=== PATIENT | female | born 1965 | race Caucasian/White ===

== ENCOUNTER 2016-10-11 16:51 | Inpatient (IN) | payer MEDICARE, BC ==
[~2016-10-11] VITALS: Ht 167.6 cm; Wt 72.1 kg
[2016-10-11] VITALS (11 sets, daily range): BP systolic 88–92; BP diastolic 51–67; PULSE 87–165; RESP 16–24; TEMP 97.9–98; O2SAT 93–99
[~2016-10-11 16:51] MED LIST: ASPI81TA82 PO; BENA25TA8 PO; FLON0.053; FURO1TAB93 PO; HAIRTAB PO; LEVO88TA2 PO; MIDO10TA4 PO; POLY119S PO; PROG1CAP PO; RENATAB5 PO; SEVEL800 PO; VITA100T55 PO; VITA20002 PO; ZOLP10TA3 PO
[2016-10-11] MEDS ORDERED: DILTIAZEM HCL 25 MG/5 ML VIAL IV PUSH ONE (17:45)
[2016-10-11] MEDS ORDERED: SODIUM CHLORIDE 0.9% FLUSH 10 ML FLUSH IVF PRN ×2 (17:45)
[2016-10-11] MEDS ORDERED: HAIRTAB PO (17:51)
[2016-10-11] MEDS ORDERED: MIDO10TA PO (17:51)
[2016-10-11] MEDS ORDERED: SEVEL800 PO (17:51)
[2016-10-11] MEDS ORDERED: CLON1TAB PO (17:51)
[2016-10-11] MEDS ORDERED: TACRPOW PO ×2 (17:51)
[2016-10-11] MEDS ORDERED: B CO PO (17:51)
[2016-10-11] MEDS ORDERED: FOSA70TA PO (17:51)
[2016-10-11] MEDS ORDERED: PYRI1TAB14 PO (17:51)
[2016-10-11] MEDS ORDERED: LEVO88TA2 PO (17:51)
[2016-10-11] MEDS ORDERED: BENA25TA3 PO (17:51)
[2016-10-11] MEDS ORDERED: PANT40TA3 PO (17:51)
--- NOTE | 2016-10-11 18:12 | RADRPT ---
EXAM DATE/TIME: 10/11/2016 18:03 [place] COMPARISON: No previous studies available for comparison. INDICATIONS : Chest pain. MEDICAL HISTORY : None. SURGICAL HISTORY : None. Liver transplant. Stent placement. ENCOUNTER: Initial ACUITY: 1 day PAIN SCORE: 5/10 LOCATION: Bilateral chest FINDINGS: A single view of the chest demonstrates right lower lobe infiltrate. Heart enlarged. Left lung clear. Vascular stent noted. Osseous structures are intact. CONCLUSION: Right lower lobe infiltrate. Umer Coughlin MD on October 11, 2016 at 18:09 Board Certified Radiologist. This report was verified electronically.
[2016-10-11] MEDS: DILTIAZEM INJ 125 MG in SODIUM CHLORIDE 0.9% INJ 100 ML IV SCH ×2 (18:19→21:23)
[2016-10-11 18:35] LABS: AUTOMATED NEUTROPHIL # 5.8 TH/MM3 (1.8-7.7); BASOPHIL # 0.1 TH/MM3 (0-0.2); EOSINOPHIL # 0.2 TH/MM3 (0-0.4); EOSINOPHIL % 2.3 % (0.0-4.0); HEMO FLAGS DIFF FINAL; LYMPH % 12.6 % (9.0-44.0); MEAN CELL VOLUME 98.7 FL (80.0-100.0); MEAN CORPUSCULAR HEMOGLOBIN 32.1 PG (27.0-34.0); MEAN CORPUSCULAR HGB CONC 32.5 % (32.0-36.0); MONO % 9.9 % (0.0-8.0); NEUT % 74.2 % (16.0-70.0); PLATELET COUNT 231 TH/MM3 (150-450); RED BLOOD COUNT 3.55 MIL/MM3 (4.00-5.30); RED CELL DISTRIBUTION WIDTH 15.1 % (11.6-17.2); WHITE BLOOD COUNT 7.9 TH/MM3 (4.0-11.0)
[2016-10-11] MEDS ORDERED: NALOXONE HCL 0.4 MG/ML AMP IV PRN (18:45)
[2016-10-11] MEDS ORDERED: SODIUM CHLORIDE 0.9% FLUSH 10 ML FLUSH IV FLUSH PRN ×2 (18:45→21:00)
[2016-10-11] MEDS ORDERED: ONDANSETRON HCL 4 MG/2 ML VIAL IVP PRN (18:45)
[2016-10-11] MEDS ORDERED: MAGNESIUM HYDROXIDE SUSP 30 ML CUP PO PRN (18:45)
[2016-10-11 18:48] LABS: ANION GAP 13 MEQ/L (5-15); BICARBONATE 28.4 MEQ/L (21.0-32.0); BLOOD UREA NITROGEN 31 MG/DL (7-18); CHLORIDE 90 MEQ/L (98-107); GLOMERULAR FILTRATION RATE 9 ML/MIN (>89); MAGNESIUM 1.9 MG/DL (1.5-2.5); POTASSIUM 3.8 MEQ/L (3.5-5.1); SODIUM (NA) 131 MEQ/L (136-145)
[2016-10-11 18:54] LABS: APTT (PATIENT) 25.6 SEC (24.3-30.1); PROTHROMBIN TIME - PATIENT 10.5 SEC (9.8-11.6)
[2016-10-11 18:58] LABS: CREATINE KINASE 156 U/L (26-192)
[2016-10-11 19:10] LABS: CKMB 7.7 NG/ML (0.5-3.6)
[2016-10-11] MEDS ORDERED: DILTIAZEM HCL 50 MG/10 ML VIAL IV PUSH ONE (19:30)
--- NOTE | 2016-10-11 19:34 | PD ---
HPI Chief Complaint: Chest Pain Time Seen by Provider: 17:09 Travel History International Travel<30 days: No Contact w/Intl Traveler<30days: No Traveled to known affect area: No History of Present Illness HPI This is a 51-year-old female with a history of renal failure, liver transplant, who [facility] for evaluation for shortness of breath and abnormal cardiac rhythm. The patient states that she felt her heart palpitating from her chest into her throat. She denies any chest pain, chest pressure. She does report shortness of breath. She's also had a dry cough that she says is nonproductive. There are no other complaints time of my examination. PFSH Past Medical History Anxiety: Yes Cancer: No Cardiovascular Problems: No High Cholesterol: Yes Cirrhosis: Yes Diabetes: Yes (hx of diabetes ok now) Patient Takes Glucophage: No Endocrine: Yes Gastrointestinal Disorders: Yes (hx of polyps, hemorroids) Genitourinary: Yes (kidney failure) Hepatitis: No Hiatal Hernia: No Hypertension: Yes Immune Disorder: No (LIVER TRANSPLANT) Medical other: Yes (no needle sticks or b/p in the left arm) Musculoskeletal: Yes (hx of torn disc in the lower back which is ok now) Neurologic: Yes (head injury as a child sinus problems now) Psychiatric: No Reproductive: Yes (UTERINE POLYP) Respiratory: No Immunizations Current: Yes Renal Failure: Yes (ON DIALYSIS) Sleep Apnea: Yes (cpap at home) Thyroid Disease: Yes (HYPOTHYROID) ?: Not Past Surgical History Abdominal Surgery: Yes (liver transplant 2008 ruptured spleen repair, SPLEENECTOMY) AICD: No Body Medical Devices: left fistula stents placed in the left side of the chest for circulation Cardiac Surgery: No Cholecystectomy: Yes Ear Surgery: No Endocrine Surgery: No Eye Surgery: No Genitourinary Surgery: No Gynecologic Surgery: Yes (POLYP REMOVED) Joint Replacement: No Neurologic Surgery: Yes (cranial bloot clot removed plastic surgery to the right side of face) Oral Surgery: No Pacemaker: No Thoracic Surgery: No Other Surgery: Yes (liver transplant march 2009) Social History Alcohol Use: No (DAILY, NONE SINCE DC'D TUESDAY) Tobacco Use: No Substance Use: No Allergies-Medications (Allergen,Severity, Reaction): Coded Allergies: Penicillin (Verified Allergy, Severe, swelling, 10/11/16) doesn't quit remember it happened as a child Reported Meds & Prescriptions Reported Meds & Active Scripts Active Reported Vitamins For The Hair (Specialty Vitamins Products) 1 Tab Tab 1 Tab PO DAILY Benadryl Allergy (Diphenhydramine HCl) 25 Mg Tab 50 Mg PO Q6H PRN Tacrolimus (Tacrolimus (Bulk)) 1 Pow Pow 0.5 Mg PO HS Tacrolimus (Tacrolimus (Bulk)) 1 Pow Pow 1 Mg PO DAILY@0600 Renvela (Sevelamer Carbonate) 800 Mg Tab 800 Mg PO TID Dialyvite 800 Plus D (B-Complex W/ C-Biotin-D & Folic Acid) 800 Mcg Wafr 1 Wafer PO DAILY Pantoprazole (Pantoprazole Sodium) 40 Mg Tab 40 Mg PO DAILY Vitamin B-6 (Pyridoxine HCl) Unknown Strength Tab Unknown Dose PO DAILY Midodrine 10 Mg Tab 20 Mg PO DAILY Levothyroxine (Levothyroxine Sodium) 88 Mcg Tab 88 Mcg PO DAILY Fosamax (Alendronate Sodium) 70 Mg Tab 70 Mg PO Q7D Clonazepam 1 Mg Tab 1 Mg PO BID Review of Systems Except as stated in HPI: all other systems reviewed are Neg General / Constitutional: No: Fever, Chills HENT: No: Headaches, Lightheadedness Cardiovascular: Positive: Chest Pain or Discomfort (no true pain but palpitations from her), Palpitations, Irregular Rhythm Respiratory: Positive: Cough, Shortness of Breath Gastrointestinal: No: Nausea, Vomiting, Abdominal Pain Musculoskeletal: Positive: Weakness (and relies), No: Pain Skin: No Rash, No Dryness Neurologic: Positive: Weakness, No: Dizziness, Headache Physical Exam Narrative GENERAL: Well-developed well-nourished female in no acute respiratory distress. SKIN: Focused skin assessment warm/dry. HEAD: Atraumatic. Normocephalic. EYES: No scleral icterus. No injection or drainage. ENT: No nasal bleeding or discharge. Mucous membranes pink and moist. NECK: Trachea midline. No JVD. CARDIOVASCULAR: Irregularly irregular with a rate in the 140s. This was A. fib with RVR on monitor and on EKG. RESPIRATORY: No accessory muscle use. Clear to auscultation in the upper airways. Questionable decreased breath sounds at the bilateral bases. GASTROINTESTINAL: Abdomen soft, non-tender. NEUROLOGICAL: Awake and alert. No obvious cranial nerve deficits. Motor grossly within normal limits. Normal speech. PSYCHIATRIC: Appropriate mood and affect; insight and judgment normal. Data Data Last Documented VS Vital Signs Date Time Temp Pulse Resp B/P Pulse Ox O2 Delivery O2 Flow Rate FiO2 10/11/16 18:41 21 10/11/16 18:20 16 97 Room Air 10/11/16 17:11 142 92/59 10/11/16 16:56 97.9 Orders Electrocardiogram (10/11/16 16:57) Electrocardiogram (10/11/16 17:43) Basic Metabolic Panel (Bmp) (10/11/16 17:43) Ckmb (Isoenzyme) Profile (10/11/16 17:43) Complete Blood Count With Diff (10/11/16:43) Magnesium (Mg) (10/11/16:43) Prothrombin Time / Inr (Pt) (10/11/16:43) Act Partial Throm Time (Ptt) (10/11/16 17:43) Troponin I (10/11/16 17:43) Chest, Single Ap (10/11/16 17:43) Ecg Monitoring (10/11/16 17:43) Bilateral Bp Monitoring (10/11/16 17:43) Iv Access Insert/Monitor (10/11/16 17:43) Oximetry (10/11/16 17:43) Oxygen Administration (10/11/16 17:43) Sodium Chloride 0.9% Flush (Ns Flush) (10/11/16 17:45) Blood Pressure (10/11/16 17:43) Vital Signs (10/11/16 17:43) Diltiazem Inj (Cardizem Inj) (10/11/16 17:45) Diltiazem Inj (Cardizem Inj) (10/11/16 17:45) Sodium Chloride 0.9% Flush (Ns Flush) (10/11/16 17:45) Thyroid Stimulating Hormone (10/11/16 17:43) Admit To Inpatient (10/11/16 ) Vital Signs (Adult) Q4H (10/11/16 18:33) Activity Oob With Assistance (10/11/16 18:33) Cnc Service Engineer / Telemetry .CONTINUOUS (10/11/16 18:33) Diet Heart Healthy (10/11/16 Dinner) Sodium Chloride 0.9% Flush (Ns Flush) (10/11/16 18:45) Sodium Chloride 0.9% Flush (Ns Flush) (10/11/16 21:00) Acetaminophen (Tylenol) (10/11/16 18:45) Ondansetron Inj (Zofran Inj) (10/11/16 18:45) Magnesium Hydroxide Liq (Milk Of Magnesi (10/11/16 18:45) Basic Metabolic Panel (Bmp) (10/12/16 06:00) Complete Blood Count With Diff (10/12/16 06:00) Resp Oxygen Andrey C Titrat 1-4 L (10/11/16 ) Heparin Inj (Heparin Inj) (10/11/16 20:00) Naloxone Inj (Narcan Inj) (10/11/16 18:45) Inpatient Certification (10/11/16 ) CKMB (10/11/16 17:40) CKMB% (10/11/16 17:40) Diltiazem Inj (Cardizem Inj) (10/11/16 19:30) Admit Order (Ed Use Only) (10/11/16 19:03) Labs Laboratory Tests Test 10/11/16 17:40 White Blood Count 7.9 TH/MM3 Red Blood Count 3.55 MIL/MM3 Hemoglobin 11.4 GM/DL Hematocrit 35.0 % Mean Corpuscular Volume 98.7 FL Mean Corpuscular Hemoglobin 32.1 PG Mean Corpuscular Hemoglobin 32.5 % Concent Red Cell Distribution Width 15.1 % Platelet Count 231 TH/MM3 Mean Platelet Volume 8.2 FL Neutrophils (%) (Auto) 74.2 % Lymphocytes (%) (Auto) 12.6 % Monocytes (%) (Auto) 9.9 % Eosinophils (%) (Auto) 2.3 % Basophils (%) (Auto) 1.0 % Neutrophils # (Auto) 5.8 TH/MM3 Lymphocytes # (Auto) 1.0 TH/MM3 Monocytes # (Auto) 0.8 TH/MM3 Eosinophils # (Auto) 0.2 TH/MM3 Basophils # (Auto) 0.1 TH/MM3 CBC Comment DIFF FINAL Differential Comment Prothrombin Time 10.5 SEC Prothromb Time International 1.0 RATIO Ratio Activated Partial 25.6 SEC Thromboplast Time Sodium Level 131 MEQ/L Potassium Level 3.8 MEQ/L Chloride Level 90 MEQ/L Carbon Dioxide Level 28.4 MEQ/L Anion Gap 13 MEQ/L Blood Urea Nitrogen 31 MG/DL Creatinine 5.15 MG/DL Estimat Glomerular Filtration 9 ML/MIN Rate Random Glucose 221 MG/DL Calcium Level 9.2 MG/DL Magnesium Level 1.9 MG/DL Total Creatine Kinase 156 U/L Creatine Kinase MB 7.7 NG/ML Troponin I LESS THAN 0.02 NG/ML Thyroid Stimulating Hormone 5.480 uIU/ML 3rd Gen [facility] Medical Decision Making Medical Screen Exam Complete: Yes Emergency Medical Condition: Yes Differential Diagnosis A. fib with RVR versus SVT versus sinus tach versus sepsis Narrative Course 51-year-old female with a history of renal failure, dialysis dependent, liver transpire, who presents at the request of Dr. Mcmillan for admission for irregular heartbeat. The patient was found to be A. fib RVR. She was given diltiazem bolus followed by drip. It appears that she is converted to a normal sinus rhythm at this point. The patient will be admitted to the hospital under the [facility] hospitalist service. The case was discussed with Dr. Melecio aguirre, who is been gracious enough to write admission orders. Chest x-ray shows what appears to be a right lower lobe infiltrate. He is written for antibiotics for her. Diagnosis Primary Impression: Atrial fibrillation with rapid ventricular response Additional Impressions: right lower lobe infiltrate renal failure/dialysis dependent History of liver transplant Admitting Information Admitting Physician Requests: Admit Thee Man MD October 11, 2016 19:34
[2016-10-11] MEDS: HEPARIN SODIUM - SQ 10,000 UNITS/ML VIAL SQ SCH (20:00)
[2016-10-11] MEDS ORDERED: SODIUM CHLOR 0.9% 1000 ML INJ 1,000 ML IV PRN ×3 (20:56)
[2016-10-11] MEDS ORDERED: EPOETIN ALFA 10,000 UNITS/ML VIAL IV PRN (21:00)
[2016-10-11] MEDS ORDERED: ONDANSETRON HCL 4 MG/2 ML VIAL IV PRN (21:00)
[2016-10-11] MEDS ORDERED: HEPARIN SODIUM - IV 10,000 UNITS/10 ML VIAL IVF PRN (21:00)
[2016-10-11] MEDS ORDERED: NITROGLYCERIN 0.4 MG SL 25 TABS/BTL SL PRN (21:00)
[2016-10-11] MEDS ORDERED: diphenhydrAMINE HCL 25 MG CAP PO PRN (21:00)
[2016-10-11] MEDS ORDERED: MANNITOL 12.5 GM/50 ML VIAL IV PRN (21:00)
[2016-10-11] MEDS ORDERED: ACETAMINOPHEN 325 MG TAB PO PRN (21:00)
[2016-10-11] MEDS ORDERED: ALBUMIN HUMAN 25% 25 GM/100 ML BAGP IV PRN (21:00)
[2016-10-11] MEDS ORDERED: cloNIDine HCL 0.1 MG TAB PO PRN (21:00)
[2016-10-11] MEDS ORDERED: GELATIN 12 MM/7 MM FOAM TOP PRN (21:00)
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
[2016-10-11] MEDS ORDERED: LEVOFLOXACIN 750 MG PREMIX INJ 150 ML IV SCH (23:15)
[2016-10-12] VITALS (9 sets, daily range): BP systolic 95–101; BP diastolic 53–58; PULSE 87–90; RESP 16–18; TEMP 98.3–98.8; O2SAT 95–98
[2016-10-12] MEDS: SODIUM CHLORIDE 0.9% FLUSH 10 ML FLUSH IV FLUSH SCH ×3 (00:56→20:58)
[2016-10-12] MEDS ORDERED: ACETAMINOPHEN 325 MG TAB PO ONE (02:15)
[2016-10-12] MEDS ORDERED: diphenhydrAMINE HCL 50 MG CAP PO PRN (02:15)
[2016-10-12] MEDS: TACROLIMUS 1 MG CAP PO SCH (06:00)
[2016-10-12] MEDS: LEVOTHYROXINE SODIUM 88 MCG TAB PO SCH (06:43)
[2016-10-12 06:58] LABS: BASOPHIL # 0.1 TH/MM3 (0-0.2); BASOPHIL % 0.9 % (0.0-2.0); EOSINOPHIL # 0.3 TH/MM3 (0-0.4); EOSINOPHIL % 3.5 % (0.0-4.0); HEMO FLAGS DIFF FINAL; LYMPH % 21.6 % (9.0-44.0); LYMPHOCYTE # 1.9 TH/MM3 (1.0-4.8); MEAN CELL VOLUME 98.2 FL (80.0-100.0); MEAN CORPUSCULAR HEMOGLOBIN 32.7 PG (27.0-34.0); MEAN CORPUSCULAR HGB CONC 33.3 % (32.0-36.0); MONO % 15.9 % (0.0-8.0); NEUT % 58.1 % (16.0-70.0); PLATELET COUNT 251 TH/MM3 (150-450); RED BLOOD COUNT 3.36 MIL/MM3 (4.00-5.30); RED CELL DISTRIBUTION WIDTH 14.8 % (11.6-17.2); WHITE BLOOD COUNT 8.6 TH/MM3 (4.0-11.0)
[2016-10-12] MEDS: SEVELAMER CARBONATE 800 MG TAB PO SCH ×3 (08:29→17:30)
[2016-10-12] MEDS: PANTOPRAZOLE SOD 40 MG DELAYED RELEASE TAB PO SCH (08:29)
[2016-10-12] MEDS: FOLIC ACID 1 MG TAB PO SCH (08:29)
[2016-10-12] MEDS: clonazePAM 1 MG TAB PO SCH ×2 (08:29→20:58)
[2016-10-12] MEDS: HEPARIN SODIUM - SQ 10,000 UNITS/ML VIAL SQ SCH ×2 (08:30→20:58)
[2016-10-12] MEDS: MIDODRINE 5 MG TAB PO SCH (08:30)
--- NOTE | 2016-10-12 08:53 | MB ---
cc: BILLY REYNOLDS M.D. DATE OF CONSULTATION 10/12/2016 REASON FOR CONSULTATION Atrial fibrillation with rapid ventricular response. HISTORY OF PRESENT ILLNESS This is a 51-year-old female who is well-known to me. She had a past medical history of liver transplant, end-stage renal disease on home hemodialysis pending kidney transplant. The patient presented to [facility] for evaluation of shortness of breath and palpitations. She was found to be in atrial fibrillation with rapid ventricular response and was started on Cardizem drip. She currently the patient is feeling fine. She denies chest pain or shortness of breath. She also denies PND or orthopnea, lower extremity edema or recent weight gain. ALLERGIES PENICILLIN. SOCIAL HISTORY Nonsmoker, nondrinker. FAMILY HISTORY Noncontributory. REVIEW OF SYSTEMS HEENT: No complaints of lightheadedness or dizziness. CARDIOVASCULAR: No documented cardiac history of atrial fibrillation. PULMONARY: Positive for asthma, COPD. GI: History of liver transplant. : End-stage renal disease on hemodialysis. The remainder of her review of systems is within normal limits. PHYSICAL EXAMINATION VITAL SIGNS: Blood pressure of 96/54 with a heart rate of 90, respiratory of 18. The patient is afebrile. NECK: Supple. No jugular venous distension. CHEST: Clear to auscultation and percussion. HEART: S1 normal of normal intensity. S2 single. Regular rate and rhythm. No S3 appreciated. ABDOMEN: Benign. EXTREMITIES: No edema, clubbing or cyanosis. IMPRESSION 1. Paroxysmal atrial fibrillation with rapid ventricular response. 2. Pneumonia. 3. History of liver transplant. 4. End-stage renal disease on hemodialysis. 5. Hyperlipidemia. RECOMMENDATIONS I recommend to start the patient on Coumadin for stroke prevention. I will start her on 5 mg once a day. Please keep INR between 2 and 3. The patient's heart rate is controlled. She is cleared from the cardiovascular standpoint to be discharged home whenever her pneumonia resolves. She had a recent stress test and echocardiogram in my office a couple of months ago which were within normal limits. Thank you for this consultation. Billy Reynolds MD /SSB /8:28 AM /8:48 AM
[2016-10-12] MEDS: INFO FOR PHARMACY/READ COMMENT SCH (09:00)
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
[2016-10-12] MEDS: VITAMIN B COMPLEX/VIT C TAB PO SCH (13:52)
[2016-10-12] MEDS: ACETAMINOPHEN 325 MG TAB PO PRN ×2 (13:58→21:00)
[2016-10-12] MEDS ORDERED: WARFARIN SOD 5 MG TAB PO SCH (16:00)
--- NOTE | 2016-10-12 17:32 | EKG ---
Date Performed: 10/11/2016 Time Performed: 17:03:02 PTAGE: 51 years EKG: ATRIAL FIBRILLATION WITH RAPID VENTRICULAR RESPONSE MINIMAL ST DEPRESSION ABNORMAL RHYTHM E CG PREVIOUS TRACING : 07/06/2012 17.19 Since previous tracing, now AF with RVR DOCTOR: Melanie Stallings Interpretating Date/Time 10/12/2016 17:30:18
--- NOTE | 2016-10-12 17:33 | EKG ---
Date Performed: 10/11/2016 Time Performed: 19:33:27 PTAGE: 51 years EKG: Sinus rhythm SEPTAL MYOCARDIAL INFARCTION ABNORMAL ECG Since PREVIOUS TRACING , back in sinus rhythm PREVIOUS TRACIN07/06/2012 17.19 DOCTOR: Melanie Stallings Interpretating Date/Time 10/12/2016 17:31:38
[2016-10-12] MEDS ORDERED: TACROLIMUS 0.5 MG CAP PO SCH (21:00)
--- NOTE | 2016-10-12 22:35 | HHI.PR ---
Subjective Remarks Follow up for Afib with RVR, right lower lobe pneumonia. Patient is currently doing well. Denies any chest pain, shortness of breath, fever, chills. Objective Vitals Vital Signs Date Time Temp Pulse Resp B/P Pulse Ox O2 Delivery O2 Flow Rate FiO2 10/12/16 17:25 97 21 10/12/16 16:00 98.5 88 18 101/58 97 10/12/16 08:46 Room Air 10/12/16 08:46 89 10/12/16 08:00 98.4 87 18 99/58 97 10/12/16 07:34 98 21 10/12/16 04:00 98.8 90 18 96/54 95 10/12/16 04:00 Room Air 10/11/16 23:42 Room Air 10/11/16 23:42 92 20 92/62 100 10/11/16 23:36 Room Air 10/11/16 23:36 98.0 94 20 88/53 96 10/11/16 22:55 92 20 92/67 98 I/O 10/11/16 10/11/16 10/11/16 10/12/16 10/12/16 10/12/16 07:00 15:00 23:00 07:00 15:00 23:00 Intake Total 0 ml 360 ml Output Total 2000 ml Balance 0 ml -1640 ml Intake Oral 0 ml 360 ml Output Hemodialysis 2000 ml # Voids 0 2 # Bowel Movements 0 1 Result Diagram: 10/12/16 0418 10/12/16 0418 Imaging Last Impressions Chest X-Ray 10/11/16 5093 Signed Impressions: Service Date/Time: Tuesday, October 11, 2016 18:03 - CONCLUSION: Right lower lobe infiltrate. Umer Coughlin MD Objective Remarks GENERAL: AOx3, NAD. SKIN: Warm and dry. HEAD: Normocephalic. EYES: No scleral icterus. No injection or drainage. NECK: Supple, trachea midline. No JVD or lymphadenopathy. CARDIOVASCULAR: Regular rate and rhythm without murmurs, gallops, or rubs. RESPIRATORY: Breath sounds equal bilaterally. No accessory muscle use. GASTROINTESTINAL: Abdomen soft, non-tender, nondistended. MUSCULOSKELETAL: No cyanosis, or edema. BACK: Nontender without obvious deformity. No CVA tenderness. Procedures None. A/P Problem List: (1) Atrial fibrillation with rapid ventricular response ICD Code: I48.91 Status: Acute (2) History of liver transplant ICD Code: Z94.4 Status: Acute (3) Right lower lobe pneumonia ICD Code: J18.1 Status: Acute Assessment and Plan Mrs. Soto is a 51 year-old who presented from [facility] to the emergency room for evaluation of shortness of breath and abnormal cardiac rhythm. In the emergency room, she was found to be in atrial fibrillation with rapid ventricular response. She is admitted on a Cardizem drip. Atrial fibrillation with rapid ventricular response - Cardizem drip discontinued - Continuous cardiac telemetry to monitor heart rhythm and rate - consulted patient's head sampler Dr. Sandy. Dr. Sandy recommended starting Warfarin. No rate control meds recommended. - Cardiology cleared for discharge. Right lower lobe infiltrate - Received Levaquin 750mg IV Q48 hours. Will d/c IV Levaquin. Last dose of Levaquin was given on 10/12/2016 at around 1:00AM. - Will start Levaquin 500mg PO [id number] starting at 9PM. Total 3 more doses. - monitor temperatures and CBC - ID input appreciated. Skin wound with purulent drainage on back - consulted ID - does not think skin lesion infected. End-stage renal disease requiring hemodialysis 5 days per week. - Consult nephrology - Dr. Mcmillan - assistance appreciated - Avoid nephrotoxins History of liver transplant 2008 - continue home antirejection/immunosuppressant medications Full code. Heparin SQ. Discharge plan: Likely discharge in the AM. Problem Qualifiers (1) Right lower lobe pneumonia: Qualified Code: J18.1 - Pneumonia of right lower lobe due to infectious organism Judah Stuart DO October 12, 2016 22:35
[2016-10-13] MEDS: ACETAMINOPHEN 325 MG TAB PO PRN (04:32)
[2016-10-13 05:00] VITALS: BP 109/56; PULSE 91; RESP 16; TEMP 98; O2SAT 96
[2016-10-13] MEDS: LEVOTHYROXINE SODIUM 88 MCG TAB PO SCH (05:54)
[2016-10-13 05:55] LABS: AUTOMATED NEUTROPHIL # 4.2 TH/MM3 (1.8-7.7); BASOPHIL # 0.1 TH/MM3 (0-0.2); BASOPHIL % 0.9 % (0.0-2.0); EOSINOPHIL # 0.3 TH/MM3 (0-0.4); EOSINOPHIL % 4.6 % (0.0-4.0); HEMATOCRIT 31.6 % (35.0-46.0); HEMO FLAGS DIFF FINAL; LYMPH % 22.7 % (9.0-44.0); LYMPHOCYTE # 1.7 TH/MM3 (1.0-4.8); MEAN CELL VOLUME 98.2 FL (80.0-100.0); MEAN CORPUSCULAR HEMOGLOBIN 32.3 PG (27.0-34.0); MEAN CORPUSCULAR HGB CONC 32.9 % (32.0-36.0); MONO % 15.6 % (0.0-8.0); NEUT % 56.2 % (16.0-70.0); PLATELET COUNT 227 TH/MM3 (150-450); RED BLOOD COUNT 3.22 MIL/MM3 (4.00-5.30); RED CELL DISTRIBUTION WIDTH 15.1 % (11.6-17.2); WHITE BLOOD COUNT 7.4 TH/MM3 (4.0-11.0)
[2016-10-13] MEDS: TACROLIMUS 1 MG CAP PO SCH (05:56)
[2016-10-13 06:14] LABS: PROTHROMBIN TIME - PATIENT 11.3 SEC (9.8-11.6)
[2016-10-13 06:22] LABS: BICARBONATE 32.3 MEQ/L (21.0-32.0); POTASSIUM 3.5 MEQ/L (3.5-5.1)
[2016-10-13] MEDS: SEVELAMER CARBONATE 800 MG TAB PO SCH (07:53)
[2016-10-13] MEDS: VITAMIN B COMPLEX/VIT C TAB PO SCH (07:54)
[2016-10-13] MEDS: PANTOPRAZOLE SOD 40 MG DELAYED RELEASE TAB PO SCH (07:54)
[2016-10-13] MEDS: FOLIC ACID 1 MG TAB PO SCH (07:55)
[2016-10-13 08:00] VITALS: BP 111/68; PULSE 87; RESP 18; TEMP 97.7; O2SAT 100
[2016-10-13] MEDS: MIDODRINE 5 MG TAB PO SCH (08:00)
[2016-10-13] MEDS: HEPARIN SODIUM - SQ 10,000 UNITS/ML VIAL SQ SCH (08:00)
[2016-10-13] MEDS: clonazePAM 1 MG TAB PO SCH (08:01)
[2016-10-13] MEDS: SODIUM CHLORIDE 0.9% FLUSH 10 ML FLUSH IV FLUSH SCH (08:02)
[2016-10-13] MEDS: INFO FOR PHARMACY/READ COMMENT SCH (08:03)
--- NOTE | 2016-10-13 08:27 | HHI.PR ---
Subjective Remarks pt denies chest pain Objective Vital Signs Date Time Temp Pulse Resp B/P Pulse Ox O2 Delivery O2 Flow Rate FiO2 10/13/16 05:00 98.0 91 16 109/56 96 10/12/16 23:25 98.5 90 16 95/53 95 10/12/16 21:00 98.3 90 16 99/57 98 10/12/16 20:00 Room Air 10/12/16 20:00 89 10/12/16 17:25 97 21 10/12/16 16:00 98.5 88 18 101/58 97 10/12/16 08:46 Room Air 10/12/16 08:46 89 I/O 10/12/16 10/12/16 10/12/16 10/13/16 10/13/16 10/13/16 07:00 15:00 23:00 07:00 15:00 23:00 Intake Total 0 ml 360 ml 480 ml 60 ml Output Total 2000 ml 0 ml 0 ml Balance 0 ml -1640 ml 480 ml 60 ml Intake Oral 0 ml 360 ml 480 ml 60 ml Output Urine Total 0 ml 0 ml Hemodialysis 2000 ml # Voids 0 2 # Bowel Movements 0 1 0 0 PE: CHEST:CTA HEART: S1,S2,No murmur ABD: ST, NT Ext: No edema Result Diagram: 10/13/16 0340 10/13/16 034 Assessment and Plan Assessment and Plan pt is stable cardiacwise....cleared to discharge home. I will manage PT INR in my office. thank you Billy Sandy MD October 13, 2016 08:27
[2016-10-13] MEDS ORDERED: LEVA500T PO (09:04)
[2016-10-13] MEDS ORDERED: COUM5TAB PO (09:04)
--- NOTE | 2016-10-13 09:07 | HHI.PR ---
Subjective Remarks Follow up for Afib with RVR, right lower lobe pneumonia. Patient is doing well. No acute concerns. is at bedside. Cardiology cleared for discharge. Objective Vitals Vital Signs Date Time Temp Pulse Resp B/P Pulse Ox O2 Delivery O2 Flow Rate FiO2 10/13/16 08:00 97.7 87 18 111/68 100 10/13/16 05:00 98.0 91 16 109/56 96 10/12/16 23:25 98.5 90 16 95/53 95 10/12/16 21:00 98.3 90 16 99/57 98 10/12/16 20:00 Room Air 10/12/16 20:00 89 10/12/16 17:25 97 21 10/12/16 16:00 98.5 88 18 101/58 97 I/O 10/12/16 10/12/16 10/12/16 10/13/16 10/13/16 10/13/16 07:00 15:00 23:00 07:00 15:00 23:00 Intake Total 0 ml 360 ml 480 ml 60 ml Output Total 2000 ml 0 ml 0 ml Balance 0 ml -1640 ml 480 ml 60 ml Intake Oral 0 ml 360 ml 480 ml 60 ml Output Urine Total 0 ml 0 ml Hemodialysis 2000 ml # Voids 0 2 # Bowel Movements 0 1 0 0 Result Diagram: 10/13/16 0340 10/13/16 0340 Imaging Last Impressions Chest X-Ray 10/11/16 1743 Signed Impressions: Service Date/Time: Tuesday, October 11, 2016 18:03 - CONCLUSION: Right lower lobe infiltrate. Umer Coughlin MD Objective Remarks GENERAL: AOx3, NAD. SKIN: Warm and dry. HEAD: Normocephalic. EYES: No scleral icterus. No injection or drainage. NECK: Supple, trachea midline. No JVD or lymphadenopathy. CARDIOVASCULAR: Regular rate and rhythm without murmurs, gallops, or rubs. RESPIRATORY: Breath sounds equal bilaterally. No accessory muscle use. GASTROINTESTINAL: Abdomen soft, non-tender, nondistended. MUSCULOSKELETAL: No cyanosis, or edema. BACK: Nontender without obvious deformity. No CVA tenderness. Procedures None. A/P Problem List: (1) Atrial fibrillation with rapid ventricular response ICD Code: I48.91 Status: Acute (2) History of liver transplant ICD Code: Z94.4 Status: Acute (3) Right lower lobe pneumonia ICD Code: J18.1 Status: Acute Assessment and Plan Mrs. Soto is a 51 year-old who presented from [facility] to the emergency room for evaluation of shortness of breath and abnormal cardiac rhythm. In the emergency room, she was found to be in atrial fibrillation with rapid ventricular response. She is admitted on a Cardizem drip. Atrial fibrillation with rapid ventricular response - Cardizem drip discontinued - Continuous cardiac telemetry to monitor heart rhythm and rate - consulted patient's windows server architect Dr. Sandy. Dr. Sandy recommended starting Warfarin. No rate control meds recommended. - Cardiology cleared for discharge. Right lower lobe infiltrate - Received Levaquin 750mg IV Q48 hours. Discontinued IV Levaquin. Last dose of Levaquin was given on 10/12/2016 at around 1:00AM. - Continue Levaquin 500mg PO [id number] starting 10/13/2016 at 9PM. Total 3 more doses. - ID input appreciated. Skin wound with purulent drainage on back - consulted ID - does not think skin lesion infected. End-stage renal disease requiring hemodialysis 5 days per week. - Consult nephrology - Dr. Mcmillan - assistance appreciated - Avoid nephrotoxins History of liver transplant 2008 - continue home antirejection/immunosuppressant medications Full code. Heparin SQ. Discharge patient to home with home health. Heart healthy Diet as tolerated Ad Addie activity Rx written: - Levaquin 500mg PO Q48hrs - 3 doses. - Warfarin 5mg Qday - Dr. Sandy's office will monitor/manage Warfarin. will check INR on Tuesday10/15/2016. - Advised patient to discuss with her windows server architect regarding one of the newer anti-coagulants such as Apixaban. However, cost is an issue. - Also patient will discuss with her windows server architect regarding low dose beta nathaniel for rate control. Follow-up with primary care physician within one week. Cardiology follow up within one week. Problem Qualifiers (1) Right lower lobe pneumonia: Qualified Code: J18.1 - Pneumonia of right lower lobe due to infectious organism Judah Stuart DO October 13, 2016 09:07
--- NOTE | 2016-10-13 09:29 | HHI.FF ---
Face to Face Verification Diagnosis: (1) Atrial fibrillation with rapid ventricular response (2) ESRD (end stage renal disease) on dialysis (3) Right lower lobe pneumonia Home Health Nursing Order: Medical education Signs/symptoms of disease process Nursing assessment with vital signs Instructions: PT/INR on 10/15/2016 and on 10/19/2016. Subsequent PT/INR per Patient's marketing finance manager office (Dr. Sandy). I have seen patient Irasema Soto on 10/13/16. My clinical findings support the need for the requested home health care services because: Deconditioned w/ increased weakness Need for psychosocial assistance I certify that my clinical findings support that this patient is homebound because: Unable to use public transportation Judah Stuatr DO October 13, 2016 9:29 am
[2016-10-13] MEDS ORDERED: LEVOFLOXACIN 500 MG TAB PO SCH (21:00)
== END 2016-10-13 10:27 | disposition home health service (06) | DRG 193 ==
LOC: NEPC 16:51 → NEDA 19:05 → N04A 23:36
PROVIDERS: ADMIT Hospitalist; ATTEND Hospitalist
PROC: 5A1D00Z (ICD-10-PCS; principal; 2016-10-12)
DX: J18.9 Pneumonia, unspecified organism (principal); N18.6 End stage renal disease; E11.22 Type 2 diabetes mellitus with diabetic chronic kidney disease; I12.0 Hypertensive chronic kidney disease with stage 5 chronic kidney disease or end stage renal disease; Z94.4 Liver transplant status; I48.0 Paroxysmal atrial fibrillation; I48.91 Unspecified atrial fibrillation; E78.5 Hyperlipidemia, unspecified; E03.9 Hypothyroidism, unspecified; G47.33 Obstructive sleep apnea (adult) (pediatric); F41.1 Generalized anxiety disorder; L98.9 Disorder of the skin and subcutaneous tissue, unspecified; Z88.0 Allergy status to penicillin; Z90.81 Acquired absence of spleen; Z99.2 Dependence on renal dialysis
CPT/HCPCS: 71010; 80048; 82550; 82552; 83735; 84443; 84484; 85025; 85610; 85730; 87070; 87205; 90935; 93005; 96374; J1644; J1956; J7507; Q4081

== ENCOUNTER 2016-10-31 10:46 | Inpatient (IN) | payer MEDICARE, BC ==
[~2016-10-31] VITALS: Ht 167.6 cm; Wt 74.0 kg
[2016-10-31] VITALS (27 sets, daily range): BP systolic 63–119; BP diastolic 40–70; PULSE 64–184; RESP 16–18; TEMP 98.1–98.6; O2SAT 93–100
[~2016-10-31 10:46] MED LIST changes: -ASPI81TA82 PO; +B CO PO; +BENA25TA3 PO; -BENA25TA8 PO; +CLON1TAB PO; +COUM5TAB PO; -FLON0.053; +FOSA70TA PO; -FURO1TAB93 PO; +LEVA500T PO; +MIDO10TA PO; -MIDO10TA4 PO; +PANT40TA3 PO; -POLY119S PO; -PROG1CAP PO; +PYRI1TAB14 PO; -RENATAB5 PO; +TACRPOW PO; -VITA100T55 PO; -VITA20002 PO; -ZOLP10TA3 PO
[2016-10-31] MEDS ORDERED: SODIUM CHLORIDE 0.9% FLUSH 10 ML FLUSH IVF PRN (11:00)
[2016-10-31] MEDS ORDERED: DILTIAZEM HCL 25 MG/5 ML VIAL IV PUSH ONE (11:15)
[2016-10-31 11:26] LABS: AUTOMATED NEUTROPHIL # 3.4 TH/MM3 (1.8-7.7); BASOPHIL % 0.6 % (0.0-2.0); EOSINOPHIL # 0.2 TH/MM3 (0-0.4); EOSINOPHIL % 3.4 % (0.0-4.0); HEMATOCRIT 37.7 % (35.0-46.0); HEMO FLAGS DIFF FINAL; LYMPH % 34.2 % (9.0-44.0); LYMPHOCYTE # 2.2 TH/MM3 (1.0-4.8); MEAN CELL VOLUME 98.3 FL (80.0-100.0); MEAN CORPUSCULAR HEMOGLOBIN 33.1 PG (27.0-34.0); MEAN CORPUSCULAR HGB CONC 33.7 % (32.0-36.0); MONO % 8.8 % (0.0-8.0); PLATELET COUNT 247 TH/MM3 (150-450); RED BLOOD COUNT 3.84 MIL/MM3 (4.00-5.30); RED CELL DISTRIBUTION WIDTH 15.1 % (11.6-17.2); WHITE BLOOD COUNT 6.5 TH/MM3 (4.0-11.0)
[2016-10-31 11:33] LABS: INTERNATIONAL NORMALIZED RATIO 1.7 RATIO; PROTHROMBIN TIME - PATIENT 18.9 SEC (9.8-11.6)
[2016-10-31 11:46] LABS: ALKALINE PHOSPHATASE 95 U/L (45-117); ALT (GPT) 20 U/L (10-53); ANION GAP 12 MEQ/L (5-15); AST (GOT) 40 U/L (15-37); BICARBONATE 29.4 MEQ/L (21.0-32.0); BLOOD UREA NITROGEN 27 MG/DL (7-18); CHLORIDE 91 MEQ/L (98-107); CREATINE KINASE 68 U/L (26-192); GLOMERULAR FILTRATION RATE 9 ML/MIN (>89); MAGNESIUM 2.2 MG/DL (1.5-2.5); POTASSIUM 3.9 MEQ/L (3.5-5.1); SODIUM (NA) 132 MEQ/L (136-145); TOTAL BILIRUBIN ADULT 0.5 MG/DL (0.2-1.0)
--- NOTE | 2016-10-31 11:46 | PD ---
HPI Chief Complaint: Chest Pain Time Seen by Provider: 11:46 (Opal Garcia) Time Seen by Provider: 10:53 (Deanna Casey DO) Travel History International Travel<30 days: No Contact w/Intl Traveler<30days: No Traveled to known affect area: No (Opal Garcia) International Travel<30 days: No Contact w/Intl Traveler<30days: No (Deanna Casey DO) History of Present Illness HPI Patient is a 51-year-old female with history of hypothyroidism, hyperlipidemia, splenectomy, liver transplant 2008, esrd on HD, who presents to emergency room for evaluation of A. fib with RVR. Patient reports that she was recently admitted to the hospital in September for A. fib with RVR, reports that she is placed on a Cardizem drip at that time and she converted to normal sinus rhythm on her own. Patient reports that since then, she has been on Coumadin. Patient reports that this morning, she began having chest pain and short of breath. Patient reports "i feel like I'm in afib." (Deanna Casey DO) [facility] Past Medical History Anxiety: Yes Heart Rhythm Problems: Yes (NEW ONSET AFIB 10/11/16) Cancer: No Cardiovascular Problems: Yes High Cholesterol: Yes Chest Pain: Yes Cirrhosis: Yes Diabetes: Yes (HISTORY ONLY) Endocrine: Yes Gastrointestinal Disorders: Yes (hx of polyps, hemorroids) Genitourinary: Yes (kidney failure) Hepatitis: No Hiatal Hernia: No Hypertension: Yes Immune Disorder: Yes (LIVER TRANSPLANT 2008) Medical other: Yes (no needle sticks or b/p in the left arm) Musculoskeletal: Yes Neurologic: Yes (head injury as a child sinus problems now) Psychiatric: Yes Reproductive: Yes (UTERINE POLYP) Respiratory: Yes Immunizations Current: Yes Renal Failure: Yes (ON HEMODIALYSIS M/T/TUE/TUE/TUE) Sleep Apnea: Yes (PT DOESNT USE CPAP) Thyroid Disease: Yes (HYPOTHYROID) Tetanus Vaccination: < 5 Years Influenza Vaccination: Yes ?: Not (Opal Garcia) Past Surgical History Abdominal Surgery: Yes (liver transplant 2008 ruptured spleen repair, SPLEENECTOMY) AICD: No Arteriovenous Shunt: Yes (LEFT ARM FISTULA) Body Medical Devices: stents placed in the left side of the chest for circulation Cardiac Surgery: No Cholecystectomy: Yes Ear Surgery: No Endocrine Surgery: Yes (LEFT ARM FISTULA) Eye Surgery: No Genitourinary Surgery: No Gynecologic Surgery: Yes (POLYP REMOVED) Joint Replacement: No Neurologic Surgery: Yes (cranial bloot clot removed plastic surgery to the right side of face) Oral Surgery: No Pacemaker: No Thoracic Surgery: Yes (RIGHT THORACENTESIS) Other Surgery: Yes (liver transplant march 2009) (Opal Garcia) Social History Alcohol Use: No (DENIES) Tobacco Use: No Substance Use: No (Opal Garcia) Allergies-Medications (Allergen,Severity, Reaction): Coded Allergies: Penicillin (Verified Allergy, Severe, swelling, 10/31/16) doesn't quit remember it happened as a child Reported Meds & Prescriptions Reported Meds & Active Scripts Active Coumadin (Warfarin) 5 Mg Tab 5 Mg PO DAILY@1600 Reported Tacrolimus (Tacrolimus (Bulk)) 1 Pow Pow 0.5 Mg PO HS Tacrolimus (Tacrolimus (Bulk)) 1 Pow Pow 1 Mg PO DAILY@0600 Renvela (Sevelamer Carbonate) 800 Mg Tab 800 Mg PO TID Dialyvite 800 Plus D (B-Complex W/ C-Biotin-D & Folic Acid) 800 Mcg Wafr 1 Wafer PO DAILY Pantoprazole (Pantoprazole Sodium) 40 Mg Tab 40 Mg PO DAILY Vitamin B-6 (Pyridoxine HCl) Unknown Strength Tab Unknown Dose PO DAILY Midodrine 10 Mg Tab 20 Mg PO DAILY Levothyroxine (Levothyroxine Sodium) 88 Mcg Tab 88 Mcg PO DAILY Fosamax (Alendronate Sodium) 70 Mg Tab 70 Mg PO Q7D Clonazepam 1 Mg Tab 1 Mg PO BID (Deanna Casey DO) Review of Systems General / Constitutional: No: Fever Eyes: No: Visual changes HENT: No: Headaches Cardiovascular: Positive: Chest Pain or Discomfort, Irregular Rhythm, Tachycardia Respiratory: Positive: Shortness of Breath Gastrointestinal: No: Abdominal Pain Genitourinary: No: Dysuria Musculoskeletal: No: Pain Skin: No Rash Neurologic: No: Weakness Psychiatric: No: Depression Endocrine: No: Polydipsia Hematologic/Lymphatic: No: Easy Bruising (Deanna Casey DO) Physical Exam Narrative GENERAL: Moderate distress SKIN: Focused skin assessment warm/dry. HEAD: Atraumatic. Normocephalic. EYES: Pupils equal and round. No scleral icterus. No injection or drainage. ENT: No nasal bleeding or discharge. Mucous membranes pink and moist. NECK: Trachea midline. No JVD. CARDIOVASCULAR: Irregularly irregular tachycardic. No murmur appreciated. RESPIRATORY: No accessory muscle use. Clear to auscultation. Breath sounds equal bilaterally. GASTROINTESTINAL: Abdomen soft, non-tender, nondistended. Hepatic and splenic margins not palpable. MUSCULOSKELETAL: No obvious deformities. No clubbing. No cyanosis. No edema. Left-sided AV fistula with a thrill NEUROLOGICAL: Awake and alert. No obvious cranial nerve deficits. Motor grossly within normal limits. Normal speech. PSYCHIATRIC: Appropriate mood and affect; insight and judgment normal. (Deanna Casey DO) Data Data Last Documented VS Vital Signs Date Time Temp Pulse Resp B/P Pulse Ox O2 Delivery O2 Flow Rate FiO2 10/31/16 14:33 129 101/70 10/31/16 13:58 18 99 Nasal Cannula 2 10/31/16 11:16 98.2 (Deanna Casey DO) Orders Electrocardiogram (10/31/16 10:53) B-Type Natriuretic Peptide (10/31/16 10:53) Ckmb (Isoenzyme) Profile (10/31/16 10:53) Complete Blood Count With Diff (10/31/16 10:53) Comprehensive Metabolic Panel (10/31/16 10:53) Magnesium (Mg) (10/31/16 10:53) Prothrombin Time / Inr (Pt) (10/31/16 10:53) Act Partial Throm Time (Ptt) (10/31/16 10:53) Troponin I (10/31/16 10:53) Lipase (10/31/16 10:53) Chest, Single Ap (10/31/16 10:53) Ecg Monitoring (10/31/16 10:53) Iv Access Insert/Monitor (10/31/16 10:53) Oximetry (10/31/16 10:53) Sodium Chloride 0.9% Flush (Ns Flush) (10/31/16 11:00) Diltiazem Inj (Cardizem Inj) (10/31/16 11:15) Vascular Access Team Consult/P PRN (10/31/16 11:37) Vascular Poc Ultrasound (10/31/16 ) Vital Signs (Adult) Q15MX4,Q4H (10/31/16 12:39) Diltiazem Inj (Cardizem Inj) (10/31/16 12:45) Phenylephrine Inj (Neosynephrine Inj) (10/31/16 14:30) Norepinephrine Inj (Levophed Inj) (10/31/16 13:40) Norepinephrine Inj (Levophed Inj) (10/31/16 13:44) Calcium Gluconate Inj (Calcium Gluconate (10/31/16 14:00) Chest, Single Ap (10/31/16 14:00) Ct Thorax/ Chest Wo Iv Contras (10/31/16 ) Admit To Inpatient (10/31/16 ) Code Status (10/31/16 14:26) Vital Signs (Adult) IBETH.Q1H (10/31/16 14:26) Activity Bed Rest (10/31/16 14:26) ^ Elevate Head Of Bed (10/31/16 14:26) Sodium Chlor 0.9% 1000 Ml Inj (Ns 1000 M (10/31/16 14:26) Pantoprazole Inj (Protonix Inj) (11/01/16 09:00) Albuterol-Ipratropium Neb (Duoneb Neb) (10/31/16 16:00) Complete Blood Count With Diff (11/01/16 04:00) Comprehensive Metabolic Panel (11/01/16 04:00) Magnesium (Mg) (11/01/16 04:00) Chest, Single Ap (11/01/16 ) Antenna Machine Operator / Telemetry IBETH.Q8H (10/31/16 14:26) Enoxaparin Inj (Lovenox Inj) (10/31/16 16:00) Scd Bilateral/Knee High IBETH.BID (10/31/16 14:26) Neptali Bilateral/Knee High IBETH.QSHIFT (10/31/16 14:26) ^ Initiate Protocol (10/31/16 14:26) Instruction (10/31/16 14:26) [facility] Nursing Information (10/31/16 14:30) Chlorhexidine 2% Cloth (Chlorhexidine 2% (11/01/16 04:00) Chlorhexidine 2% Cloth (Chlorhexidine 2% (10/31/16 14:30) Mrsa Pcr Surveillance (10/31/16 14:26) Docusate Sodium-Senna (Snidy-Colace) (10/31/16 21:00) Magnesium Hydroxide Liq (Milk Of Magnesi (10/31/16 14:30) Sennosides (Senokot) (10/31/16 14:30) Bisacodyl Supp (Dulcolax Supp) (10/31/16 14:30) Lactulose Liq (Lactulose Liq) (10/31/16 14:30) Inpatient Certification (10/31/16 ) Admit Order (Ed Use Only) (10/31/16 14:38) (Deanna Casey DO) Labs Laboratory Tests Test 10/31/16 11:10 White Blood Count 6.5 TH/MM3 Red Blood Count 3.84 MIL/MM3 Hemoglobin 12.7 GM/DL Hematocrit 37.7 % Mean Corpuscular Volume 98.3 FL Mean Corpuscular Hemoglobin 33.1 PG Mean Corpuscular Hemoglobin 33.7 % Concent Red Cell Distribution Width 15.1 % Platelet Count 247 TH/MM3 Mean Platelet Volume 8.4 FL Neutrophils (%) (Auto) 53.0 % Lymphocytes (%) (Auto) 34.2 % Monocytes (%) (Auto) 8.8 % Eosinophils (%) (Auto) 3.4 % Basophils (%) (Auto) 0.6 % Neutrophils # (Auto) 3.4 TH/MM3 Lymphocytes # (Auto) 2.2 TH/MM3 Monocytes # (Auto) 0.6 TH/MM3 Eosinophils # (Auto) 0.2 TH/MM3 Basophils # (Auto) 0.0 TH/MM3 CBC Comment DIFF FINAL Differential Comment Prothrombin Time 18.9 SEC Prothromb Time International 1.7 RATIO Ratio Activated Partial 24.0 SEC Thromboplast Time Sodium Level 132 MEQ/L Potassium Level 3.9 MEQ/L Chloride Level 91 MEQ/L Carbon Dioxide Level 29.4 MEQ/L Anion Gap 12 MEQ/L Blood Urea Nitrogen 27 MG/DL Creatinine 4.88 MG/DL Estimat Glomerular Filtration 9 ML/MIN Rate Random Glucose 159 MG/DL Calcium Level 10.9 MG/DL Magnesium Level 2.2 MG/DL Total Bilirubin 0.5 MG/DL Aspartate Amino Transf 40 U/L (AST/SGOT) Alanine Aminotransferase 20 U/L (ALT/SGPT) Alkaline Phosphatase 95 U/L Total Creatine Kinase 68 U/L Troponin I LESS THAN 0.02 NG/ML B-Type Natriuretic Peptide 214 PG/ML Total Protein 5.7 GM/DL Albumin 2.2 GM/DL Lipase 158 U/L (Deanna Casey DO) [facility] Medical Decision Making Medical Screen Exam Complete: Yes Emergency Medical Condition: Yes Interpretation(s) EKG at 1051 shows A. fib with RVR at 157 bpm, QT/QTC 292/380 Vital Signs Date Time Temp Pulse Resp B/P Pulse Ox O2 Delivery O2 Flow Rate FiO2 10/31/16 14:33 129 101/70 10/31/16 14:13 135 86/52 10/31/16 14:06 128 74/51 10/31/16 13:58 138 18 88/51 99 Nasal Cannula 2 Manual Cuff/Auscultation 10/31/16 13:42 145 10/31/16 13:30 142 74/48 10/31/16 13:11 149 63/43 10/31/16 13:05 68/44 10/31/16 12:50 148 17 64/42 100 Nasal Cannula 3 Automatic Cuff 10/31/16 12:17 120 17 86/60 100 Nasal Cannula 3 10/31/16 11:59 125 79/56 10/31/16 11:28 69/40 10/31/16 11:16 98.2 138 17 96 Nasal Cannula 3 10/31/16 10:57 93 Room Air 10/31/16 10:56 140 19 96 Nasal Cannula 3 10/31/16 10:50 184 18 108/62 93 Laboratory Tests Test 10/31/16 11:10 White Blood Count 6.5 TH/MM3 (4.0-11.0) Red Blood Count 3.84 MIL/MM3 (4.00-5.30) Hemoglobin 12.7 GM/DL (11.6-15.3) Hematocrit 37.7 % (35.0-46.0) Mean Corpuscular Volume 98.3 FL (80.0-100.0) Mean Corpuscular Hemoglobin 33.1 PG (27.0-34.0) Mean Corpuscular Hemoglobin 33.7 % Concent (32.0-36.0) Red Cell Distribution Width 15.1 % (11.6-17.2) Platelet Count 247 TH/MM3 (150-450) Mean Platelet Volume 8.4 FL (7.0-11.0) Neutrophils (%) (Auto) 53.0 % (16.0-70.0) Lymphocytes (%) (Auto) 34.2 % (9.0-44.0) Monocytes (%) (Auto) 8.8 % (0.0-8.0) Eosinophils (%) (Auto) 3.4 % (0.0-4.0) Basophils (%) (Auto) 0.6 % (0.0-2.0) Neutrophils # (Auto) 3.4 TH/MM3 (1.8-7.7) Lymphocytes # (Auto) 2.2 TH/MM3 (1.0-4.8) Monocytes # (Auto) 0.6 TH/MM3 (0-0.9) Eosinophils # (Auto) 0.2 TH/MM3 (0-0.4) Basophils # (Auto) 0.0 TH/MM3 (0-0.2) CBC Comment DIFF FINAL Differential Comment Prothrombin Time 18.9 SEC (9.8-11.6) Prothromb Time International 1.7 RATIO Ratio Activated Partial 24.0 SEC Thromboplast Time (24.3-30.1) Sodium Level 132 MEQ/L (136-145) Potassium Level 3.9 MEQ/L (3.5-5.1) Chloride Level 91 MEQ/L (98-107) Carbon Dioxide Level 29.4 MEQ/L (21.0-32.0) Anion Gap 12 MEQ/L (5-15) Blood Urea Nitrogen 27 MG/DL (7-18) Creatinine 4.88 MG/DL (0.50-1.00) Estimat Glomerular Filtration 9 ML/MIN (>89) Rate Random Glucose 159 MG/DL (74-106) Calcium Level 10.9 MG/DL (8.5-10.1) Magnesium Level 2.2 MG/DL (1.5-2.5) Total Bilirubin 0.5 MG/DL (0.2-1.0) Aspartate Amino Transf 40 U/L (15-37) (AST/SGOT) Alanine Aminotransferase 20 U/L (10-53) (ALT/SGPT) Alkaline Phosphatase 95 U/L (45-117) Total Creatine Kinase 68 U/L (26-192) Troponin I LESS THAN 0.02 NG/ML (0.02-0.05) B-Type Natriuretic Peptide 214 PG/ML (0-100) Total Protein 5.7 GM/DL (6.4-8.2) Albumin 2.2 GM/DL (3.4-5.0) Lipase 158 U/L (73-393) Last Impressions Chest X-Ray 10/31/16 1053 Signed Impressions: Service Date/Time: Monday, October 31, 2016 11:05 - CONCLUSION: No significant change. Persistent right lower lung consolidation versus atelectasis and small right pleural effusion. Randell Juan MD Differential Diagnosis afib with rvr, electrolyte abnormality Narrative Course Patient is a 51-year-old female who presents to emergency room with complaints of chest pain and shortness of breath. Patient was placed on a consulting database administrator , EKG obtained, patient was found to be in A. fib with RVR. Patient was given a Cardizem IV bolus, after Cardizem WAS given, patient's blood pressure dropped to systolics of 60s. Patient was given 250ml bolus of IVF and bp went to 88/51, repeat 250ml IVF bolus resulted in BP of 74/51, repeat 250IVF bolus resulted in bp 86/52. Patient's HR elevated in the 130's - plan to place patient on cardizem gtt. Right-sided internal jugular central line placed without difficultly. Neosynephine started in central line for BP control along with cardizem for HR control Case reviewed with Dr. Murillo who accepts patient to service Ct of chest shows moderate to large pericardial effusion - concern for tamponade physiology - Dr. 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 Du Melendez is oil pump station operator chief for Dr. Sandy, will see patient in consult Critical Care Narrative Aggregate critical care time was 60 minutes. Time to perform other separately billable procedures was not included in the critical care time. My time did not include minutes spent treating any other patients simultaneously or on activities that did not directly contribute to the patient's treatment. The services I provided to this patient were to treat and/or prevent clinically significant deterioration that could result in: , decompensation, deterioration I provided critical care services requiring my management, as noted below: Chart data review, documentation time, medication orders and management, vital sign assessments/reviewing monitor data, ordering and reviewing lab tests, ordering and interpreting/reviewing x-rays and diagnostic studies, care of the patient and discussion of the patient with the admitting physicians. (Deanna Casey DO ) Procedures Procedure Narrative CENTRAL VENOUS LINE: The site was prepped with Betadine and sterilely draped. It was infiltrated with 1% lidocaine plain. The deep vein was cannulated using normal Seldinger technique. A triple lumen central line was placed in the right AC site and secured with simple interrupted suture. The site was sterilely dressed. The patient tolerated the procedure well. (Deanna Casey DO) Diagnosis Primary Impression: Atrial fibrillation with rapid ventricular response Additional Impression: Moderate to large pericardial effusion Admitting Information Admitting Physician Requests: Admit (Deanna Casey DO) Opal Garcia Oct 31, 2016 11:46 Deanna Casey DO Oct 31, 2016 13:04
--- NOTE | 2016-10-31 12:00 | RADRPT ---
EXAM DATE/TIME: 10/31/2016 11:05 [facility] COMPARISON: CHEST SINGLE AP, October 11, 2016, 18:03. INDICATIONS : Chest pain MEDICAL HISTORY : Renal failure, chronic. SURGICAL HISTORY : Liver transplant. Stent placement. ENCOUNTER: Initial ACUITY: 1 day PAIN SCORE: 6/10 LOCATION: Bilateral chest FINDINGS: Single AP view of the chest. Confluent right lung base opacity unchanged. Small right pleural effusio n. Cardiac silhouette enlargement again seen. Mild pulmonary vascular congestion. CONCLUSION: No significant change. Persistent right lower lung consolidation versus atelectasis and small right p leural effusion. Randell Juan MD on October 31, 2016 at 11:57 Board Certified Radiologist. This report was verified electronically.
[2016-10-31] MEDS: DILTIAZEM INJ 125 MG in SODIUM CHLORIDE 0.9% INJ 100 ML IV SCH (13:11)
[2016-10-31] MEDS ORDERED: NOREPINEPHRINE 4 MG/4 ML AMP ONE ×2 (13:40→13:44)
[2016-10-31] MEDS ORDERED: CALCIUM GLUCONATE INJ 1 GM in DEXTROSE 5% IN WATER 100ML INJ 100 ML IV ONE ×2 (14:00)
[2016-10-31] MEDS: PHENYLEPHRINE INJ 40 MG in DEXTROSE 5% IN WATE 500 ML INJ 496 ML IV SCH ×2 (14:01)
[2016-10-31] MEDS ORDERED: SODIUM CHLOR 0.9% 1000 ML INJ 1,000 ML IV SCH (14:26)
[2016-10-31] MEDS ORDERED: MISCELLANEOUS NURSING INFORMATION XX SCH (14:30)
[2016-10-31] MEDS ORDERED: BISACODYL 10 MG SUPP RECTAL PRN (14:30)
[2016-10-31] MEDS ORDERED: MAGNESIUM HYDROXIDE SUSP 30 ML CUP PO PRN (14:30)
[2016-10-31] MEDS ORDERED: CHLORHEXIDINE GLUCONATE 2 % 1 PACK (2 CLOTHS) TOP PRN (14:30)
[2016-10-31] MEDS ORDERED: LACTULOSE SYRUP 20 GM/30 ML CUP PO PRN (14:30)
[2016-10-31] MEDS ORDERED: SENNOSIDES 8.6 MG TAB PO PRN (14:30)
--- NOTE | 2016-10-31 14:51 | RADRPT ---
EXAM DATE/TIME: 10/31/2016 14:10 [facility] COMPARISON: CHEST SINGLE AP, October 31, 2016, 11:05. INDICATIONS : Evaluate central line placement MEDICAL HISTORY : Renal failure, chronic. SURGICAL HISTORY : Liver transplant. Stent placement. ENCOUNTER: Subsequent ACUITY: 1 day PAIN SCORE: 0/10 LOCATION: Right chest FINDINGS: Single AP view of the chest. Right IJ central venous catheter is in place with the tip in the proxima l SVC. No evidence of pneumothorax. Persistent bilateral pulmonary opacity unchanged. Cardiomediastin al silhouette unchanged. CONCLUSION: Right IJ central venous catheter in place with the tip in the proximal SVC. No evidence of pneumothor ax. Randell Juan MD on October 31, 2016 at 14:48 Board Certified Radiologist. This report was verified electronically.
--- NOTE | 2016-10-31 15:14 | RADRPT ---
EXAM DATE/TIME: 10/31/2016 14:33 [facility] COMPARISON: No previous studies available for comparison. INDICATIONS : Substernal chest pain and shortness of breath today. RADIATION DOSE: 6.15 CTDIvol (mGy) MEDICAL HISTORY : Cardiovascular disease. diabetes, renal failure SURGICAL HISTORY : Cholecystectomy. liver transplant ENCOUNTER: Initial ACUITY: 1 day PAIN SCALE: 5/10 LOCATION: Bilateral chest TECHNIQUE: Volumetric scanning of the chest was performed. Using automated exposure control and adjustment of t he mA and/or kV according to patient size, radiation dose was kept as low as reasonably achievable to obtain optimal diagnostic quality images. FINDINGS: LUNGS: Moderate-sized area of right lower lobe pulmonary consolidation. PLEURAE: Course pleural calcifications diffusely on the right. Indicating prior pleurodesis. MEDIASTINUM: Moderate to large pericardial effusion. Coronary artery calcifications. No enlarged lymph nodes. Left brachiocephalic vein stent. AXILLAE: Within normal limits. No lymphadenopathy. MUSCULOSKELETAL: Within normal limits for patient age. MISCELLANEOUS: Metallic densities in the left upper quadrant likely representing surgical clips. Small amount of asc ites in the left upper quadrant. CONCLUSION: 1. Moderate to large pericardial effusion. 2. Moderate-sized area of right lower lobe consolidation. 3. Coarse calcifications diffusely in the right pleura. Indicating prior pleurodesis. Randell Juan MD on October 31, 2016 at 15:07 Board Certified Radiologist. This report was verified electronically.
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
[2016-10-31] MEDS ORDERED: VANCOMYCIN INJ 1,000 MG in SODIUM CHLOR 0.9% 250 ML INJ 250 ML IV ONE (16:00)
[2016-10-31] MEDS ORDERED: Vancomycin Consult Pharmacy 1 EA OTHER PRN (16:00)
[2016-10-31] MEDS ORDERED: ENOXAPARIN SODIUM 40 MG/0.4 ML SYRINGE SQ SCH (16:00)
[2016-10-31 16:42] LABS: BLOOD GAS BASE EXCESS 2.9 mmol/L (-2-2); BLOOD GAS CARBOXYHEMOGLOBIN 1.5 % (0-4); BLOOD GAS HCO3 27 mmol/L (22-26); BLOOD GAS METHEMOGLOBIN 0.7 % (0-2); BLOOD GAS O2 HGB SATURATION 96 % (90-100); BLOOD GAS OXYGEN CONTENT 15.5 Vol % (12.0-20.0); BLOOD GAS PCO2 41 mmHg (38-42); BLOOD GAS PO2 114 mmHG (61-120); BLOOD GAS TOTAL HGB 11.3 G/DL (12.0-16.0); CRITICAL VALUE NO; DRAW SITE RT BRACHIAL; LITER FLOW 3 L/M; NUMBER OF ARTERIAL PUNCTURES 1; OXYGEN DEVICE NASAL CANNULA; STAT YES; TEMP CORR TO 98.6
[2016-10-31] MEDS ORDERED: DIGOXIN 0.5 MG/2 ML VIAL IV PUSH ONE (17:15)
--- NOTE | 2016-10-31 17:16 | PD.CONS ---
HPI Service cariology Consult Requested By er Reason for Consult afib and pericardial effusion Primary Care Physician Adele Yang MD History of Present Illness admitted with tachycardia dizzy feeling and found to be in afiv with RVR received 20 mg diltiazem IV and BP dropped given IV fluids and pressors and iv cardiazem started bp more stable hr 120s feeling better had episode of pressure in chest ct raise the possibility of good size pneumonia no syncope no sob no edema active at home was recently in hospital and diagnosed with afib with rvr and teated medically she had stress test recently with Dr giles she could nor remember echo was done recently ct done with moderate to large pericardial effusion echo done and looks like loculated effusion with posterior effusion larger and very small anterior effusion will get radiology consult for ct guided pericardiocentesis and consider cardiac surgery consult after that patient echo did not show collapse of ra or rv however Review of Systems Consitutional: COMPLAINS OF: Fatigue HEENT: COMPLAINS OF: Lightheadedness Past Family Social History Allergies: Coded Allergies: Penicillin (Verified Allergy, Severe, swelling, 10/31/16) doesn't quit remember it happened as a child Past Medical History dialysis on transplant list and had liver transplant before Past Surgical History splenectomy Reported Medications Reported Meds & Active Scripts Active Coumadin (Warfarin) 5 Mg Tab 5 Mg PO DAILY@1600 Reported Tacrolimus (Tacrolimus (Bulk)) 1 Pow Pow 0.5 Mg PO HS Tacrolimus (Tacrolimus (Bulk)) 1 Pow Pow 1 Mg PO DAILY@0600 Renvela (Sevelamer Carbonate) 800 Mg Tab 800 Mg PO TID Dialyvite 800 Plus D (B-Complex W/ C-Biotin-D & Folic Acid) 800 Mcg Wafr 1 Wafer PO DAILY Pantoprazole (Pantoprazole Sodium) 40 Mg Tab 40 Mg PO DAILY Vitamin B-6 (Pyridoxine HCl) Unknown Strength Tab Unknown Dose PO DAILY Midodrine 10 Mg Tab 20 Mg PO DAILY Levothyroxine (Levothyroxine Sodium) 88 Mcg Tab 88 Mcg PO DAILY Fosamax (Alendronate Sodium) 70 Mg Tab 70 Mg PO Q7D Clonazepam 1 Mg Tab 1 Mg PO BID Active Ordered Medications Current Medications Medications (Trade) Dose Ordered Sig/Susan Route Start Time Stop Time Status Last Admin Sodium Chloride 2 ml 2 ml UNSCH PRN IVF 10/31/16 11:00 Diltiazem HCl 125 mg/Sodium Chloride 125 ml @ 0 mls/hr TITRATE IV 10/31/16 12:45 10/31/16 13:11 Phenylephrine HCl 40 mg/Dextrose 500 ml @ 0 mls/hr TITRATE IV 10/31/16 14:30 10/31/16 14:01 (NS 1000 ml Inj) 1,000 ml @ 84 mls/hr [id number] IV 10/31/16 14:26 10/31/16 14:53 (Protonix Inj) 40 mg DAILY IV 11/01/16 09:00 (Lovenox Inj) 40 mg Q24H SQ 10/31/16 16:00 Miscellaneous Information 1 [id number] XX 10/31/16 14:30 (Chlorhexidine 2% Cloth) 3 pack Taper DAILY@04 TOP 11/01/16 04:00 10/28/17 03:59 (Chlorhexidine 2% Cloth) 3 pack UNSCH PRN TOP 10/31/16 14:30 (Sindy-Colace) 1 tab BID PO 10/31/16 21:00 (Milk Of Magnesia Liq) 30 ml Q12H PRN PO 10/31/16 14:30 (Senokot) 17.2 mg Q12H PRN PO 10/31/16 14:30 (Dulcolax Supp) 10 mg DAILY PRN RECTAL 10/31/16 14:30 (Lactulose Liq) 30 ml DAILY PRN PO 10/31/16 14:30 (Synthroid) 88 mcg DAILY@06 PO 10/31/16 15:45 (Proamatine) 20 mg DAILY PO 10/31/16 15:45 (Renvela) 800 mg TID PO 10/31/16 18:00 (Nephrocaps) 1 cap DAILY PO 11/01/16 09:00 (Prograf) 0.5 mg HS PO 10/31/16 21:00 Tacrolimus 1 mg 1 mg DAILY@0600 PO 11/01/16 06:00 Piperacillin Sod/ Tazobactam Sod 50 ml @ 100 mls/hr Q8H IV 10/31/16 18:00 (Vancomycin Consult Pharmacy) 0 ml @ 0 mls/hr UNSCH PRN OTHER 10/31/16 16:00 (Xanax) 0.5 mg Q6H PRN PO 10/31/16 16:45 UNV (Lanoxin Inj) 0.25 mg ONCE ONCE IV PUSH 10/31/16 17:15 10/31/16 17:16 UNV Family History non contributing Social History no tobacco no drugs no alcohol Physical Exam Vital Signs Vital Signs Date Time Temp Pulse Resp B/P Pulse Ox O2 Delivery O2 Flow Rate FiO2 10/31/16 15:55 125 17 91/61 98 Nasal Cannula 2 10/31/16 15:25 128 96/62 10/31/16 15:20 122 93/62 10/31/16 15:14 127 91/67 10/31/16 14:54 128 90/67 10/31/16 14:33 129 101/70 10/31/16 14:13 135 86/52 10/31/16 14:06 128 74/51 10/31/16 13:58 138 18 88/51 99 Nasal Cannula 2 Manual Cuff/Auscultation 10/31/16 13:42 145 10/31/16 13:30 142 74/48 10/31/16 13:11 149 63/43 10/31/16 13:05 68/44 10/31/16 12:50 148 17 64/42 100 Nasal Cannula 3 Automatic Cuff 10/31/16 12:17 120 17 86/60 100 Nasal Cannula 3 10/31/16 11:59 125 79/56 10/31/16 11:28 69/40 10/31/16 11:16 98.2 138 17 96 Nasal Cannula 3 10/31/16 10:57 93 Room Air 10/31/16 10:56 140 19 96 Nasal Cannula 3 10/31/16 10:50 184 18 108/62 93 Physical Exam vitals as above heent jvp difficult to evaluate heart s1s2 sm 2/6 lung clear abdomen free ext no edema Laboratory Laboratory Tests Test 10/31/16 10/31/16 11:10 16:32 White Blood Count 6.5 Red Blood Count 3.84 Hemoglobin 12.7 Hematocrit 37.7 Mean Corpuscular Volume 98.3 Mean Corpuscular Hemoglobin 33.1 Mean Corpuscular Hemoglobin 33.7 Concent Red Cell Distribution Width 15.1 Platelet Count 247 Mean Platelet Volume 8.4 Neutrophils (%) (Auto) 53.0 Lymphocytes (%) (Auto) 34.2 Monocytes (%) (Auto) 8.8 Eosinophils (%) (Auto) 3.4 Basophils (%) (Auto) 0.6 Neutrophils # (Auto) 3.4 Lymphocytes # (Auto) 2.2 Monocytes # (Auto) 0.6 Eosinophils # (Auto) 0.2 Basophils # (Auto) 0.0 CBC Comment DIFF FINAL Differential Comment Prothrombin Time 18.9 Prothromb Time International 1.7 Ratio Activated Partial 24.0 Thromboplast Time Sodium Level 132 Potassium Level 3.9 Chloride Level 91 Carbon Dioxide Level 29.4 Anion Gap 12 Blood Urea Nitrogen 27 Creatinine 4.88 Estimat Glomerular Filtration 9 Rate Random Glucose 159 Calcium Level 10.9 Magnesium Level 2.2 Total Bilirubin 0.5 Aspartate Amino Transf 40 (AST/SGOT) Alanine Aminotransferase 20 (ALT/SGPT) Alkaline Phosphatase 95 Total Creatine Kinase 68 Troponin I LESS THAN 0.02 B-Type Natriuretic Peptide 214 Total Protein 5.7 Albumin 2.2 Lipase 158 Blood Gas Puncture Site RT BRACHIAL Blood Gas Patient Temperature 98.6 Blood Gas HCO3 27 Blood Gas Base Excess 2.9 Blood Gas Oxygen Saturation 96 Arterial Blood pH 7.43 Arterial Blood Partial 41 Pressure CO2 Arterial Blood Partial 114 Pressure O2 Arterial Blood Oxygen Content 15.5 Arterial Blood 1.5 Carboxyhemoglobin Arterial Blood Methemoglobin 0.7 Blood Gas Hemoglobin 11.3 Oxygen Delivery Device NASAL CANNULA Blood Gas Liter Flow 3 Result Diagram: 10/31/16 1110 10/31/16 1110 Assessment and Plan Problem List: (1) Hypotension (2) Right lower lobe pneumonia (3) ESRD (end stage renal disease) on dialysis (4) Atrial fibrillation with rapid ventricular response Assessment and Plan: continue supportive acre and medica management as above will give small dose digoxin (5) Moderate to large pericardial effusion (6) Sepsis (7) History of liver transplant Problem Qualifiers (1) Hypotension: Qualified Code: I95.9 - Hypotension, unspecified hypotension type (2) Right lower lobe pneumonia: Qualified Code: J18.1 - Pneumonia of right lower lobe due to infectious organism (3) Sepsis: Qualified Code: A41.9 - Sepsis, due to unspecified organism Soniya Melendez MD Oct 31, 2016 17:16
[2016-10-31] MEDS: RESP: ALBUTEROL 2.5 MG/IPRATROPIUM 0.5 MG NEB (SCH) INH ×2 (17:20→20:12)
--- NOTE | 2016-10-31 17:33 | EC ---
Study Study Date:10/31/2016 STUDY CONCLUSIONS SUMMARY - Pericardium, extracardiac: Though no specific tamponade findings seen such as chamber collapse; the high heart rate reduces sensitivity. Given the large effusion seen, clinical correlation will be required. A large, free-flowing pericardial effusion was identified circumferential to the heart. There was no chamber collapse. The possibility of hemodynamic compromise cannot be excluded on the basis of available images. - Left ventricle: The cavity size was normal. Wall thickness was normal. Systolic function was normal. The estimated ejection fraction was in the range of 60% to 65%. Wall motion was normal; there were no regional wall motion abnormalities. - Aortic valve: Valve area: 1.56cm^2(VTI). Valve area: 1.7cm^2 (Vmax). If LV function is below 40, please consider prescribing an ACEI or ARB or document rationale for non-use. PROCEDURE DATA STUDY STATUS: Elective. Procedure: Transthoracic echocardiography. Image quality was good. Scanning was performed from the parasternal, apical, and subcostal acoustic windows. Study completion: The patient tolerated the procedure well. Transthoracic echocardiography. M-mode, complete 2D, complete spectral Doppler, and color Doppler. Patient status: Inpatient. CARDIAC ANATOMY LEFT VENTRICLE: The cavity size was normal. Wall thickness was normal. Systolic function was normal. The estimated ejection fraction was in the range of 60% to 65%. Wall motion was normal; there were no regional wall motion abnormalities. AORTIC VALVE: Trileaflet; normal thickness leaflets. Doppler: Transvalvular velocity was within the normal range. There was no stenosis. No regurgitation. Valve area: 1.56cm^2(VTI). Valve area: 1.7cm^2 (Vmax). Mean gradient: 10mm Hg (S). Peak gradient: 22mm Hg (S). AORTA: Aortic root: The aortic root was normal in size. MITRAL VALVE: Structurally normal valve. Doppler: Transvalvular velocity was within the normal range. There was no evidence for stenosis. Trace regurgitation. LEFT ATRIUM: The atrium was normal in size. RIGHT VENTRICLE: The cavity size was normal. Wall thickness was normal. PULMONIC VALVE: Doppler: Transvalvular velocity was within the normal range. There was no evidence for stenosis. No regurgitation. TRICUSPID VALVE: Structurally normal valve. Doppler: Transvalvular velocity was within the normal range. Trace regurgitation. PULMONARY ARTERY: The main pulmonary artery was normal-sized. Systolic pressure was within the normal range. RIGHT ATRIUM: The atrium was normal in size. PERICARDIUM: Though no specific tamponade findings seen such as chamber collapse; the high heart rate reduces sensitivity. Given the large effusion seen, clinical correlation will be required. A large, free-flowing pericardial effusion was identified circumferential to the heart. Doppler: There was no chamber collapse. The possibility of hemodynamic compromise cannot be excluded on the basis of available images. SYSTEMIC VEINS: Inferior vena cava: The vessel was normal in size. BASIC MEASUREMENTS ADULT Normal Left ventricle LV internal dimension, ED, chordal level, *29.6 mm 43-52 PLAX LV internal dimension, ES, chordal level, *21.2 mm 23-38 PLAX Fractional shortening, chordal level, PLAX *28 % >29 LV posterior wall thickness, ED 14.9 mm IVS/LVPW ratio, ED 0.92 <1.3 Ventricular septum Septal thickness, ED 13.7 mm Aortic valve Leaflet separation 19 mm 15-26 Right ventricle RV internal dimension, ED, PLAX 22.3 mm 19-38 BASIC MEASUREMENTS ADULT Normal Aortic valve Leaflet separation 19 mm 15-26 Aorta Root diameter, ED 27 mm 20-37 Left atrium Anterior-posterior dimension, ES 32 mm 19-40 LA/aortic root ratio 1.19 DOPPLER MEASUREMENTS ADULT Normal Aortic valve Peak velocity, S 232 cm/s Mean velocity, S 137 cm/s VTI, S 35.1 cm Mean gradient, S 10 mm Hg Peak gradient, S 22 mm Hg Valve area, VTI 1.56 cm^2 Valve area, Vmax 1.7 cm^2 LEGEND: Mean values are shown as u=mean value. Asterisk (*) smiley values outside specified normal range. Prepared and signed by Kamlesh Moore [id number]
[2016-10-31] MEDS: MIDODRINE 5 MG TAB PO SCH (17:42)
[2016-10-31] MEDS: SEVELAMER CARBONATE 800 MG TAB PO SCH (17:51)
[2016-10-31] MEDS ORDERED: PIPERACIL-TAZO 3.375 GM PREMIX 50 ML IV SCH ×2 (18:00)
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
[2016-10-31] MEDS: DOCUSATE SODIUM 50 MG/SENNA 8.6 MG TAB PO SCH (21:00)
[2016-10-31] MEDS: PIPERACIL-TAZO 2.25 GM PREMIX 50 ML IV SCH (21:36)
[2016-10-31] MEDS: TACROLIMUS 0.5 MG CAP PO SCH (21:36)
[2016-11-01] VITALS (33 sets, daily range): BP systolic 83–107; BP diastolic 51–64; PULSE 69–99; RESP 13–37; TEMP 98.2–98.9; O2SAT 94–100
[2016-11-01] MEDS: DILTIAZEM INJ 125 MG in SODIUM CHLORIDE 0.9% INJ 100 ML IV SCH (01:04)
[2016-11-01] MEDS: ALPRAZolam 0.5 MG TAB PO PRN (02:03)
[2016-11-01] MEDS: RESP: ALBUTEROL 2.5 MG/IPRATROPIUM 0.5 MG NEB (SCH) INH ×4 (03:13→22:00)
[2016-11-01] MEDS: CHLORHEXIDINE GLUCONATE 2 % 1 PACK (2 CLOTHS) TOP SCH (04:00)
--- NOTE | 2016-11-01 04:28 | RADRPT ---
EXAM DATE/TIME: 11/01/2016 02:55 [facility] COMPARISON: CHEST SINGLE AP, October 31, 2016, 14:10. INDICATIONS : Shortness of breath, possible pulmonary disease. MEDICAL HISTORY : Renal failure, chronic. Cardiovascular disease. Diabetes mellitus type II. SURGICAL HISTORY : Cholecystectomy. Liver transplant ENCOUNTER: Subsequent ACUITY: 3 days PAIN SCORE: 2/10 LOCATION: Bilateral chest FINDINGS: A single view of the chest demonstrates the cardiomegaly, bilateral pleural effusions and mild bibasi lar consolidations right greater left are unchanged. Right IJ central line in good position. Upper omar ngs remain clear.. Osseous structures are intact. CONCLUSION: Stable examination with persistent cardiomegaly and bibasilar infiltrates right worse than left. Nazario Kovacs MD on November 01, 2016 at 4:25 Board Certified Radiologist. This report was verified electronically.
[2016-11-01 05:19] LABS: AUTOMATED NEUTROPHIL # 4.4 TH/MM3 (1.8-7.7); BASOPHIL % 0.6 % (0.0-2.0); EOSINOPHIL # 0.2 TH/MM3 (0-0.4); HEMATOCRIT 31.4 % (35.0-46.0); HEMO FLAGS DIFF FINAL; LYMPH % 21.9 % (9.0-44.0); LYMPHOCYTE # 1.6 TH/MM3 (1.0-4.8); MEAN CORPUSCULAR HEMOGLOBIN 32.4 PG (27.0-34.0); MEAN CORPUSCULAR HGB CONC 33.1 % (32.0-36.0); MONO % 15.6 % (0.0-8.0); NEUT % 58.9 % (16.0-70.0); PLATELET COUNT 237 TH/MM3 (150-450); RED BLOOD COUNT 3.21 MIL/MM3 (4.00-5.30); RED CELL DISTRIBUTION WIDTH 15.1 % (11.6-17.2); WHITE BLOOD COUNT 7.5 TH/MM3 (4.0-11.0)
[2016-11-01] MEDS: TACROLIMUS 1 MG CAP PO SCH (05:28)
[2016-11-01] MEDS: LEVOTHYROXINE SODIUM 88 MCG TAB PO SCH (05:28)
[2016-11-01] MEDS: PIPERACIL-TAZO 2.25 GM PREMIX 50 ML IV SCH ×3 (05:29→21:10)
[2016-11-01 05:44] LABS: ALKALINE PHOSPHATASE 72 U/L (45-117); ALT (GPT) 17 U/L (10-53); ANION GAP 8 MEQ/L (5-15); AST (GOT) 23 U/L (15-37); BICARBONATE 29.8 MEQ/L (21.0-32.0); BLOOD UREA NITROGEN 35 MG/DL (7-18); CHLORIDE 93 MEQ/L (98-107); GLOMERULAR FILTRATION RATE 8 ML/MIN (>89); POTASSIUM 3.5 MEQ/L (3.5-5.1); SODIUM (NA) 131 MEQ/L (136-145); TOTAL BILIRUBIN ADULT 0.3 MG/DL (0.2-1.0)
[2016-11-01 05:53] LABS: CREATINE KINASE 46 U/L (26-192)
[2016-11-01] MEDS: PANTOPRAZOLE SODIUM 40 MG VIAL IV SCH (08:12)
[2016-11-01] MEDS: VITAMIN B CMPLX/VITC/FOLIC AC CAP PO SCH (08:16)
[2016-11-01] MEDS: MIDODRINE 5 MG TAB PO SCH (08:17)
[2016-11-01] MEDS: SEVELAMER CARBONATE 800 MG TAB PO SCH ×4 (08:17→18:32)
[2016-11-01] MEDS: DOCUSATE SODIUM 50 MG/SENNA 8.6 MG TAB PO SCH ×2 (08:17→21:00)
[2016-11-01] MEDS: PHENYLEPHRINE INJ 40 MG in DEXTROSE 5% IN WATE 500 ML INJ 496 ML IV SCH ×2 (08:25)
--- NOTE | 2016-11-01 08:47 | HHI.CCPN ---
Subjective Remarks/Hospital Course Patient is a 51-year-old female with history of hypothyroidism, hyperlipidemia, ESRD on HD, splenectomy, liver transplant 2008, who presented to emergency room for chest pain and hypotension. Patient states that she felt sudden central chest pain and checked her BP and was hypotensive. She was diagnosed with A. 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 Patient reports that since then, she has been on Coumadin. EKG in ED showed Afib with RVR. Patient was given a Cardizem IV bolus, patient's blood pressure dropped to systolics of 60s. Patient was given total 750ml bolus of IVF and was placed on cardizem gtt and Levophed. Right-sided internal jugular central line placed by ER physician. I requested a CT of the chest to evaluate right lower lobe infiltrate on chest x-ray. This showed a moderate-sized right lower lobe consolidation and moderate to large pericardial effusion I evaluated the patient in the emergency department. She is currently on Levothroid at 3 mcg/m and Cardizem infusion. I did a bedside ultrasound, which showed moderate to large pericardial effusion. The patient is in atrial fibrillation and rapid ventricular response, difficult to evaluate for tamponade physiology with limited bedside echo. Stat full echo pending at this time. Stat cardiology consult also placed -Dr. Melendez. Lizarraga cultures will be sent and patient will be placed on Zosyn and vancomycin to cover for healthcare associated pneumonia 11/01 Patient is lying in bed in NAD. Off Cardizem drip and is on Neosyn 40 mics. For Pericardiocentesis today. Objective Vital Signs Date Time Temp Pulse Resp B/P Pulse Ox O2 Delivery O2 Flow Rate FiO2 11/01/16 08:01 99 Nasal Cannula 2.00 11/01/16 06:00 87 11/01/16 04:00 98.5 14 97/53 10/31/16 15:55 Intake and Output 10/31/16 10/31/16 11/01/16 08:00 16:00 00:00 Intake Total 1864 ml Output Total 0 ml Balance 1864 ml Result Diagram: 11/01/16 0450 11/01/16 0450 Other Results Laboratory Tests Test 10/31/16 10/31/16 10/31/16 10/31/16 11:10 16:30 16:32 17:33 White Blood Count 6.5 TH/MM3 Red Blood Count 3.84 MIL/MM3 Hemoglobin 12.7 GM/DL Hematocrit 37.7 % Mean Corpuscular Volume 98.3 FL Mean Corpuscular Hemoglobin 33.1 PG Mean Corpuscular Hemoglobin 33.7 % Concent Red Cell Distribution Width 15.1 % Platelet Count 247 TH/MM3 Mean Platelet Volume 8.4 FL Neutrophils (%) (Auto) 53.0 % Lymphocytes (%) (Auto) 34.2 % Monocytes (%) (Auto) 8.8 % Eosinophils (%) (Auto) 3.4 % Basophils (%) (Auto) 0.6 % Neutrophils # (Auto) 3.4 TH/MM3 Lymphocytes # (Auto) 2.2 TH/MM3 Monocytes # (Auto) 0.6 TH/MM3 Eosinophils # (Auto) 0.2 TH/MM3 Basophils # (Auto) 0.0 TH/MM3 CBC Comment DIFF FINAL Differential Comment Prothrombin Time 18.9 SEC Prothromb Time International 1.7 RATIO Ratio Activated Partial 24.0 SEC Thromboplast Time Sodium Level 132 MEQ/L Potassium Level 3.9 MEQ/L Chloride Level 91 MEQ/L Carbon Dioxide Level 29.4 MEQ/L Anion Gap 12 MEQ/L Blood Urea Nitrogen 27 MG/DL Creatinine 4.88 MG/DL Estimat Glomerular Filtration 9 ML/MIN Rate Random Glucose 159 MG/DL Calcium Level 10.9 MG/DL Magnesium Level 2.2 MG/DL Total Bilirubin 0.5 MG/DL Aspartate Amino Transf 40 U/L (AST/SGOT) Alanine Aminotransferase 20 U/L (ALT/SGPT) Alkaline Phosphatase 95 U/L Total Creatine Kinase 68 U/L 42 U/L Troponin I LESS THAN 0.02 0.09 NG/ML NG/ML B-Type Natriuretic Peptide 214 PG/ML Total Protein 5.7 GM/DL Albumin 2.2 GM/DL Lipase 158 U/L Blood Bank Comment Blood Gas Puncture Site RT BRACHIAL Blood Gas Patient Temperature 98.6 Blood Gas HCO3 27 mmol/L Blood Gas Base Excess 2.9 mmol/L Blood Gas Oxygen Saturation 96 % Arterial Blood pH 7.43 Arterial Blood Partial 41 mmHg Pressure CO2 Arterial Blood Partial 114 mmHG Pressure O2 Arterial Blood Oxygen Content 15.5 Vol % Arterial Blood 1.5 % Carboxyhemoglobin Arterial Blood Methemoglobin 0.7 % Blood Gas Hemoglobin 11.3 G/DL Oxygen Delivery Device NASAL CANNULA Blood Gas Liter Flow 3 L/M Lactic Acid Level 1.5 mmol/L Thyroid Stimulating Hormone 1.870 uIU/ML 3rd Gen Test 10/31/16 10/31/16 11/01/16 17:58 21:55 04:50 Nasal Screen MRSA (PCR) MRSA NOT DETECTED Total Creatine Kinase 58 U/L 46 U/L Troponin I 0.10 NG/ML 0.09 NG/ML White Blood Count 7.5 TH/MM3 Red Blood Count 3.21 MIL/MM3 Hemoglobin 10.4 GM/DL Hematocrit 31.4 % Mean Corpuscular Volume 98.0 FL Mean Corpuscular Hemoglobin 32.4 PG Mean Corpuscular Hemoglobin 33.1 % Concent Red Cell Distribution Width 15.1 % Platelet Count 237 TH/MM3 Mean Platelet Volume 8.2 FL Neutrophils (%) (Auto) 58.9 % Lymphocytes (%) (Auto) 21.9 % Monocytes (%) (Auto) 15.6 % Eosinophils (%) (Auto) 3.0 % Basophils (%) (Auto) 0.6 % Neutrophils # (Auto) 4.4 TH/MM3 Lymphocytes # (Auto) 1.6 TH/MM3 Monocytes # (Auto) 1.2 TH/MM3 Eosinophils # (Auto) 0.2 TH/MM3 Basophils # (Auto) 0.0 TH/MM3 CBC Comment DIFF FINAL Differential Comment Sodium Level 131 MEQ/L Potassium Level 3.5 MEQ/L Chloride Level 93 MEQ/L Carbon Dioxide Level 29.8 MEQ/L Anion Gap 8 MEQ/L Blood Urea Nitrogen 35 MG/DL Creatinine 5.55 MG/DL Estimat Glomerular Filtration 8 ML/MIN Rate Random Glucose 109 MG/DL Calcium Level 9.8 MG/DL Phosphorus Level 4.8 MG/DL Magnesium Level 2.0 MG/DL Total Bilirubin 0.3 MG/DL Aspartate Amino Transf 23 U/L (AST/SGOT) Alanine Aminotransferase 17 U/L (ALT/SGPT) Alkaline Phosphatase 72 U/L Total Protein 4.6 GM/DL Albumin 1.8 GM/DL Imaging Chest X-Ray 11/01/16 0000 Signed Impressions: Service Date/Time: Tuesday, November 01, 2016 02:55 - CONCLUSION: Stable examination with persistent cardiomegaly and bibasilar infiltrates right worse than left. Nazario Kovacs MD Chest CT 10/31/16 0000 Signed Impressions: Service Date/Time: Monday, October 31, 2016 14:33 - CONCLUSION: 1. Moderate to large pericardial effusion. 2. Moderate-sized area of right lower lobe consolidation. 3. Coarse calcifications diffusely in the right pleura. Indicating prior pleurodesis. Randell Juan MD Objective Remarks GENERAL: Patient is lying in bed in no acute resp distress SKIN: warm/dry. HEAD: Atraumatic. Normocephalic. EYES: Pupils equal and round. No scleral icterus. No injection or drainage. ENT: No nasal bleeding or discharge. NECK: Trachea midline. No JVD. CARDIOVASCULAR: Irregularly irregular . Grade 3 pansystolic murmur heard in all areas. RESPIRATORY: No accessory muscle use. Clear to auscultation. Breath sounds equal bilaterally. GASTROINTESTINAL: Abdomen soft, non-tender, nondistended. Hepatic and splenic margins not palpable. MUSCULOSKELETAL: Left-sided AV fistula with a thrill NEUROLOGICAL: Awake and alert. No obvious cranial nerve deficits. Motor grossly within normal limits. Normal speech. A/P Assessment and Plan NEURO: Anxiety -Minimize sedation -As needed Xanax for anxiety RESP: Right lower lobe pneumonia -Continue with oxygen keep sat >92% -DuoNeb every 6 hours when necessary -Broad-spectrum antibiotics with Zosyn and vancomycin CV: Hypotension Atrial fibrillation with RVR Moderate to large pericardial effusion - Wean off Neosyn Monitor HR and BP keep MAP>65mmHg. Off Cardizem drip. -Cardiology -Dr. Melendez -For pericardial drainage today will send fluid for culture/cytology. -Echo showed EF 60-65% -Continue midodrine -Coumadin on hold GI: Status post liver transplant in 2008 Status post splenectomy -Continue post transplant medications including tacrolimus, check Prograf level. -Watch for OPSI as patient had splenectomy : ESRD on HD -Monitor renal function, I/O's, avoid nephrotoxins. - Renal0 Dr. Chi, HD per renal. ID: Septic shock Right lower lobe pneumonia -IV vancomycin and Zosyn renally dosed -Follow up on blood cultures. Monitor for signs of infections ( Fever, WBC) HEME: -Monitor CBC, CMP, coags -s/p 2 units of FFP in anticipation of pericardial effusion drainage 10/31, monitor INR/PT today ENDO: -Monitor electrolytes closely especially for hyperkalemia PROPH: -Bilateral lower extremity SCDs/Lovenox 30mg daily for DVT prophylaxis. Coumadin on hold check INR/PT -IV Protonix for GI prophylaxis LINES: Right IJ central line placed by the ER physician 6/4 Level 3 Steve Mattson MD Nov 01, 2016 08:47
[2016-11-01 10:01] LABS: INTERNATIONAL NORMALIZED RATIO 1.4 RATIO; PROTHROMBIN TIME - PATIENT 15.6 SEC (9.8-11.6)
[2016-11-01 10:37] LABS: APTT (PATIENT) 31.3 SEC (24.3-30.1)
[2016-11-01] MEDS ORDERED: SODIUM CHLOR 0.9% 1000 ML INJ 1,000 ML IV PRN ×3 (10:49)
[2016-11-01] MEDS ORDERED: cloNIDine HCL 0.1 MG TAB PO PRN (11:00)
[2016-11-01] MEDS ORDERED: ACETAMINOPHEN 325 MG TAB PO PRN (11:00)
[2016-11-01] MEDS ORDERED: HEPARIN SODIUM - IV 10,000 UNITS/10 ML VIAL IVF PRN (11:00)
[2016-11-01] MEDS ORDERED: NITROGLYCERIN 0.4 MG SL 25 TABS/BTL SL PRN (11:00)
[2016-11-01] MEDS ORDERED: VANCOMYCIN INJ 1,000 MG in SODIUM CHLOR 0.9% 250 ML INJ 250 ML IV SCH (11:00)
[2016-11-01] MEDS ORDERED: GELATIN 12 MM/7 MM FOAM TOP PRN (11:00)
[2016-11-01] MEDS ORDERED: SODIUM CHLORIDE 0.9% FLUSH 10 ML FLUSH IV FLUSH PRN (11:00)
[2016-11-01] MEDS ORDERED: diphenhydrAMINE HCL 25 MG CAP PO PRN (11:00)
[2016-11-01] MEDS ORDERED: ONDANSETRON HCL 4 MG/2 ML VIAL IV PRN (11:00)
[2016-11-01] MEDS ORDERED: MANNITOL 12.5 GM/50 ML VIAL IV PRN (11:00)
--- NOTE | 2016-11-01 11:05 | HHI.NPPN ---
Subjective History of Present Illness 51 year old female with Liver Transplant with CP, A fib, Pericardial effusion Additional Remarks converted to NSR Review of Systems General Constitutional: Fatigue Objective Data Data 10/31/16 11/01/16 19:00 07:00 Intake Total 2165 ml Output Total 0 ml Balance 2165 ml Intake Oral 170 ml IV Total 1457 ml FFP 538 ml Output Urine Total 0 ml # Bowel Movements 0 Vital Signs Date Time Temp Pulse Resp B/P Pulse Ox O2 Delivery O2 Flow Rate FiO2 11/01/16 10:00 84 11/01/16 08:56 96 11/01/16 08:01 99 Nasal Cannula 2.00 11/01/16 08:00 82 11/01/16 08:00 98.2 84 16 94/53 100 11/01/16 06:00 87 11/01/16 04:00 98.5 69 14 97/53 100 11/01/16 04:00 69 11/01/16 02:00 71 11/01/16 00:00 98.8 69 18 93/61 98 11/01/16 00:00 69 10/31/16 22:00 73 10/31/16 20:12 100 Nasal Cannula 3.00 10/31/16 20:00 64 10/31/16 20:00 98.6 64 17 103/63 100 10/31/16 18:00 74 10/31/16 18:00 98.1 74 18 94/65 100 10/31/16 17:20 100 Nasal Cannula 4.00 10/31/16 16:00 128 17 119/56 98 Nasal Cannula 3 10/31/16 15:55 125 17 91/61 98 Nasal Cannula 2 10/31/16 15:25 128 96/62 10/31/16 15:20 122 93/62 10/31/16 15:14 127 91/67 10/31/16 14:54 128 90/67 10/31/16 14:33 129 101/70 10/31/16 14:13 135 86/52 10/31/16 14:06 128 74/51 10/31/16 13:58 138 18 88/51 99 Nasal Cannula 2 Manual Cuff/Auscultation 10/31/16 13:42 145 10/31/16 13:30 142 74/48 10/31/16 13:11 149 63/43 10/31/16 13:05 68/44 10/31/16 12:50 148 17 64/42 100 Nasal Cannula 3 Automatic Cuff 10/31/16 12:17 120 17 86/60 100 Nasal Cannula 3 10/31/16 11:59 125 79/56 10/31/16 11:28 69/40 10/31/16 11:16 98.2 138 17 96 Nasal Cannula 3 -: 11/01/16 0450 11/01/16 0450 Microbiology 10/31/16 Aerobic Blood Culture, Received Pending 10/31/16 Anaerobic Blood Culture, Received Pending 10/31/16 Aerobic Blood Culture, Received Pending 10/31/16 Anaerobic Blood Culture, Received Pending Physical Exam General Appearance: Well Developed Neck Neck Exam: Neck Supple Pulmonary Resp Exam: Decreased Bases Cardiology CV Exam: Regular, Normal Sinus Rhythm Gastrointestinal/Abdomen GI Exam: Soft, Non-Tender, Bowel Sounds Present Extremeties Extremities Exam: No Edema Assessment/Plan Problem List: (1) ESRD (end stage renal disease) on dialysis Plan: She has large Pericardial effusion of unknown etiology she is doing 5 days a week HHD, here she will get hemodialysis today and likely MWF she has low BP as well Avoid Gadolinium. Monitor fluid and electrolytes. Continue Renvela with meals. Monitor phosphorus periodically. 1340 pm seen during hemodialysis tolerating it well 2 L planned (2) Atrial fibrillation with rapid ventricular response Plan: Has converted to NSR. Cardiology on the case. Hold Coumadin due to pericardial effusion. (3) Moderate to large pericardial effusion Plan: Etiology is unclear. Patient appears to be compliant with dialysis and does not have high waste products. Uremic pericardial effusion is not likely but cannot be ruled out. She does appear to have pneumonia. check BRITTANI C3 C4 SPEP UIEP Needs additional investigation, and drainage of the fluid. Avoid anticoagulation. (4) Right lower lobe pneumonia Plan: On Vancomycin and Zosyn. She is immunosuppressed due to antirejection medications. In addition she is s/ p splenectomy, making her prone to encapsulated bacterial infection. Problem Qualifiers (1) Right lower lobe pneumonia: Qualified Code: J18.1 - Pneumonia of right lower lobe due to infectious organism Connie Mcmillan MD Nov 01, 2016 11:05
[2016-11-01] MEDS: ENOXAPARIN SODIUM 30 MG/0.3 ML SYRINGE SQ SCH (15:04)
[2016-11-01] MEDS: EPOETIN ALFA 10,000 UNITS/ML VIAL IV PRN (15:25)
--- NOTE | 2016-11-01 16:08 | EKG ---
Date Performed: 10/31/2016 Time Performed: 10:51:49 PTAGE: 51 years EKG: ATRIAL FIBRILLATION WITH RAPID VENTRICULAR RESPONSE MODERATE ST DEPRESSION ABNORMAL ECG INT ERPRETATION BASED ON A DEFAULT AGE OF 40 YEARS PREVIOUS TRACING : 10/11/2016 19.33 Atrial fibrillation is new from the prior tracing. DOCTOR: Willi Flannery Interpretating Date/Time 11/01/2016 16:07:07
[2016-11-01 16:13] LABS: TOTAL PROTEIN SPE 3.8 GM/DL (6.0-7.6)
[2016-11-01] MEDS ORDERED: LIDOCAINE HCL 1% 20 ML VIAL ONE (16:20)
[2016-11-01] MEDS ORDERED: fentaNYL CITRATE 250 MCG/5 ML AMP ONE (16:33)
[2016-11-01] MEDS ORDERED: MIDAZOLAM HCL 5 MG/5 ML VIAL ONE (16:33)
--- NOTE | 2016-11-01 17:16 | PD.RAD ---
Post Procedure Progress Note Pre Procedure Diagnosis: (1) Moderate to large pericardial effusion Post Procedure Diagnosis: (1) Moderate to large pericardial effusion Procedure Date: Nov 01, 2016 Supervising Radiologist: Misbah Bower Anesthesia: Local, Conscious Sedation Plan of Activity Patient to Unit: Critical Care Patient Condition: Poor Additional Comments: pericardial drain placed 1 Liter of bloody fluid removed Pt. tolerated the procedure well See PACS Report for procedural detail/treatment Misbah Bower MD Nov 01, 2016 17:16
--- NOTE | 2016-11-01 17:29 | PD.CARD.PN ---
Subjective Subjective Remarks post pericardiocentesis Objective Vital Signs / I&O Vital Signs Date Time Temp Pulse Resp B/P Pulse Ox O2 Delivery O2 Flow Rate FiO2 11/01/16 16:00 98.9 78 15 107/62 100 11/01/16 16:00 84 11/01/16 14:00 80 11/01/16 14:00 80 11/01/16 12:00 98.5 74 16 94/52 94 11/01/16 12:00 73 11/01/16 10:00 84 11/01/16 08:56 96 11/01/16 08:01 99 Nasal Cannula 2.00 11/01/16 08:00 82 11/01/16 08:00 98.2 84 16 94/53 100 11/01/16 06:00 87 11/01/16 04:00 98.5 69 14 97/53 100 11/01/16 04:00 69 11/01/16 02:00 71 11/01/16 00:00 98.8 69 18 93/61 98 11/01/16 00:00 69 10/31/16 22:00 73 10/31/16 20:12 100 Nasal Cannula 3.00 10/31/16 20:00 64 10/31/16 20:00 98.6 64 17 103/63 100 10/31/16 18:00 74 10/31/16 18:00 98.1 74 18 94/65 100 I/O 10/31/16 10/31/16 10/31/16 11/01/16 11/01/16 11/01/16 07:00 15:00 23:00 07:00 15:00 23:00 Intake Total 1864 ml 301 ml 192 ml Output Total 0 ml 0 ml 0 ml Balance 1864 ml 301 ml 192 ml Intake Oral 150 ml 20 ml 60 ml IV Total 1176 ml 281 ml 132 ml FFP 538 ml Output Urine Total 0 ml 0 ml 0 ml # Bowel Movements 0 0 0 Physical Exam heart s1s2 controlled no edema Laboratory Laboratory Tests Test 10/31/16 10/31/16 10/31/16 11/01/16 17:33 17:58 21:55 04:50 Lactic Acid Level 1.5 mmol/L Total Creatine Kinase 42 U/L 58 U/L 46 U/L Troponin I 0.09 NG/ML 0.10 NG/ML 0.09 NG/ML Thyroid Stimulating Hormone 1.870 uIU/ML 3rd Gen Nasal Screen MRSA (PCR) MRSA NOT DETECTED White Blood Count 7.5 TH/MM3 Red Blood Count 3.21 MIL/MM3 Hemoglobin 10.4 GM/DL Hematocrit 31.4 % Mean Corpuscular Volume 98.0 FL Mean Corpuscular Hemoglobin 32.4 PG Mean Corpuscular Hemoglobin 33.1 % Concent Red Cell Distribution Width 15.1 % Platelet Count 237 TH/MM3 Mean Platelet Volume 8.2 FL Neutrophils (%) (Auto) 58.9 % Lymphocytes (%) (Auto) 21.9 % Monocytes (%) (Auto) 15.6 % Eosinophils (%) (Auto) 3.0 % Basophils (%) (Auto) 0.6 % Neutrophils # (Auto) 4.4 TH/MM3 Lymphocytes # (Auto) 1.6 TH/MM3 Monocytes # (Auto) 1.2 TH/MM3 Eosinophils # (Auto) 0.2 TH/MM3 Basophils # (Auto) 0.0 TH/MM3 CBC Comment DIFF FINAL Differential Comment Sodium Level 131 MEQ/L Potassium Level 3.5 MEQ/L Chloride Level 93 MEQ/L Carbon Dioxide Level 29.8 MEQ/L Anion Gap 8 MEQ/L Blood Urea Nitrogen 35 MG/DL Creatinine 5.55 MG/DL Estimat Glomerular Filtration 8 ML/MIN Rate Random Glucose 109 MG/DL Calcium Level 9.8 MG/DL Phosphorus Level 4.8 MG/DL Magnesium Level 2.0 MG/DL Total Bilirubin 0.3 MG/DL Aspartate Amino Transf 23 U/L (AST/SGOT) Alanine Aminotransferase 17 U/L (ALT/SGPT) Alkaline Phosphatase 72 U/L Total Protein 4.6 GM/DL Albumin 1.8 GM/DL Tacrolimus (Prograf) Level 5.9 NG/ML Test 11/01/16 11/01/16 08:25 13:05 Prothrombin Time 15.6 SEC Prothromb Time International 1.4 RATIO Ratio Activated Partial 31.3 SEC Thromboplast Time Erythrocyte Sedimentation Rate 29 mm/hr C-Reactive Protein 1.21 MG/DL Total Protein 3.8 GM/DL Complement C3 93 MG/DL Complement C4 21 MG/DL Assessment and Plan Problem List: (1) Hypotension Assessment and Plan: try wean off pressors if we can (2) Right lower lobe pneumonia (3) ESRD (end stage renal disease) on dialysis (4) Atrial fibrillation with rapid ventricular response (5) Moderate to large pericardial effusion (6) Sepsis (7) History of liver transplant Problem Qualifiers (1) Hypotension: Qualified Code: I95.9 - Hypotension, unspecified hypotension type (2) Right lower lobe pneumonia: Qualified Code: J18.1 - Pneumonia of right lower lobe due to infectious organism (3) Sepsis: Qualified Code: A41.9 - Sepsis, due to unspecified organism Soniya Melendez MD Nov 01, 2016 17:29
--- NOTE | 2016-11-01 17:49 | RADRPT ---
EXAM DATE/TIME: 11/01/2016 16:36 [facility] COMPARISON: CT THORAX W/O CONTRAST, October 31, 2016, 14:33. INDICATIONS : Pericardial fluid. SEDATION TIME: 30 MEDICATION(S): 1.) 1.5 mg midazolam (Versed) IV 2.) 75 mcg fentanyl (Sublimaze) IV DEVICE(S): 1.) 6 Fr Locking pigtail 2.) 22 gauge Total volume of 400 cc of red fluid was removed. MEDICAL HISTORY : Cardiovascular disease. SURGICAL HISTORY : Liver transplant. ENCOUNTER: Initial ACUITY: 1 day PAIN SCORE: 0/10 LOCATION: chest PROCEDURE: 1.) Conscious sedation with continuous EKG and oximetry monitoring. 2.) EKG and oximetry remained stable throughout the procedure. PROCEDURE : CT guided pericardial drain placement.. The risks, benefits and alternatives to the procedure were explained and verbal and written consent w as obtained. Using automated exposure control and adjustment of the mA and/or kV according to patien t size, radiation dose was kept as low as reasonably achievable to obtain optimal diagnostic quality images. The site was prepped in sterile fashion. Full sterile technique was used, including cap, ma sk, sterile gloves and gown and a large sterile sheet. Hand hygiene and 2% chlorhexidine and/or beta dine/alcohol prep was utilized per protocol for cutaneous antisepsis. The skin and subcutaneous tiss ues were infiltrated with local anesthetic solution. A 20 gauge needle was advanced to the skin of the left anterior chest wall and into the pericardial s ac. A 0.018 wire was advanced with a needle. This was exchanged for a 3/4 combination dilator. Positi on within the pericardial sac was confirmed under CT guidance. A 0.035 wire was advanced through the dilator. A 6 [place] skater catheter was advanced over the wire. There was immediate return of approxi mately 1.2 L of bloody fluid. The patient tolerated the procedure well. CONCLUSION: CT guided pericardiocentesis. Misbah Bower MD on November 01, 2016 at 17:46 Board Certified Radiologist. This report was verified electronically.
[2016-11-01 18:42] LABS: PERICARDIAL WBC 369 /MM3 (0-10)
[2016-11-01 18:43] LABS: PERICARDIAL EOS 12 %; PERICARDIAL HISTIOCYTES 2 %; PERICARDIAL LYMPHS 33 %; PERICARDIAL MESOTHELIAL 1 %; PERICARDIAL MONOS 4 %; PERICARDIAL POLYS(SEGS) 47 %; PERICARDIAL RBC 1782657 /MM3 (0-0)
[2016-11-01 18:45] LABS: PERICARDIAL PLASMA CELLS 1 %
[2016-11-01] MEDS: oxyCODONE/ACETAMINOPHEN 5 MG/325 MG TAB PO PRN (19:57)
[2016-11-01] MEDS: TACROLIMUS 0.5 MG CAP PO SCH (21:09)
[2016-11-02] VITALS (79 sets, daily range): BP systolic 79–114; BP diastolic 49–72; PULSE 72–106; RESP 11–48; TEMP 97.4–98.3; O2SAT 82–100
[2016-11-02] MEDS: oxyCODONE/ACETAMINOPHEN 5 MG/325 MG TAB PO PRN ×4 (02:20→20:13)
[2016-11-02] MEDS: CHLORHEXIDINE GLUCONATE 2 % 1 PACK (2 CLOTHS) TOP SCH (04:00)
[2016-11-02] MEDS: RESP: ALBUTEROL 2.5 MG/IPRATROPIUM 0.5 MG NEB (SCH) INH ×4 (04:00→22:00)
[2016-11-02] MEDS: PIPERACIL-TAZO 2.25 GM PREMIX 50 ML IV SCH ×3 (05:16→20:13)
[2016-11-02 05:30] LABS: AUTOMATED NEUTROPHIL # 5.1 TH/MM3 (1.8-7.7); BASOPHIL % 0.3 % (0.0-2.0); EOSINOPHIL # 0.3 TH/MM3 (0-0.4); EOSINOPHIL % 3.6 % (0.0-4.0); HEMATOCRIT 33.9 % (35.0-46.0); HEMO FLAGS DIFF FINAL; LYMPH % 21.1 % (9.0-44.0); LYMPHOCYTE # 1.8 TH/MM3 (1.0-4.8); MEAN CELL VOLUME 99.7 FL (80.0-100.0); MEAN CORPUSCULAR HEMOGLOBIN 31.9 PG (27.0-34.0); MONO % 15.5 % (0.0-8.0); NEUT % 59.5 % (16.0-70.0); PLATELET COUNT 237 TH/MM3 (150-450); RED BLOOD COUNT 3.39 MIL/MM3 (4.00-5.30); RED CELL DISTRIBUTION WIDTH 15.2 % (11.6-17.2); WHITE BLOOD COUNT 8.5 TH/MM3 (4.0-11.0)
[2016-11-02] MEDS: TACROLIMUS 1 MG CAP PO SCH (06:03)
[2016-11-02] MEDS: LEVOTHYROXINE SODIUM 88 MCG TAB PO SCH (06:03)
[2016-11-02 06:06] LABS: BICARBONATE 32.2 MEQ/L (21.0-32.0)
[2016-11-02] MEDS: MIDODRINE 5 MG TAB PO SCH (07:59)
[2016-11-02] MEDS: PANTOPRAZOLE SODIUM 40 MG VIAL IV SCH (07:59)
[2016-11-02] MEDS: SEVELAMER CARBONATE 800 MG TAB PO SCH ×3 (08:00→15:38)
[2016-11-02] MEDS: VITAMIN B CMPLX/VITC/FOLIC AC CAP PO SCH (08:00)
[2016-11-02] MEDS: DOCUSATE SODIUM 50 MG/SENNA 8.6 MG TAB PO SCH ×2 (08:02→20:13)
--- NOTE | 2016-11-02 10:46 | HHI.CCPN ---
Subjective Remarks/Hospital Course Patient is a 51-year-old female with history of hypothyroidism, hyperlipidemia, ESRD on HD, splenectomy, liver transplant 2008, who presented to emergency room for chest pain and hypotension. Patient states that she felt sudden central chest pain and checked her BP and was hypotensive. She was diagnosed with A. 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 Patient reports that since then, she has been on Coumadin. EKG in ED showed Afib with RVR. Patient was given a Cardizem IV bolus, patient's blood pressure dropped to systolics of 60s. Patient was given total 750ml bolus of IVF and was placed on cardizem gtt and Levophed. Right-sided internal jugular central line placed by ER physician. I requested a CT of the chest to evaluate right lower lobe infiltrate on chest x-ray. This showed a moderate-sized right lower lobe consolidation and moderate to large pericardial effusion I evaluated the patient in the emergency department. She is currently on Levothroid at 3 mcg/m and Cardizem infusion. I did a bedside ultrasound, which showed moderate to large pericardial effusion. The patient is in atrial fibrillation and rapid ventricular response, difficult to evaluate for tamponade physiology with limited bedside echo. Stat full echo pending at this time. Stat cardiology consult also placed -Dr. Melendez. Lizarraga cultures will be sent and patient will be placed on Zosyn and vancomycin to cover for healthcare associated pneumonia 11/01 Patient is lying in bed in NAD. Off Cardizem drip and is on Neosyn 40 mics. For Pericardiocentesis today. 11/02 patient s/p CT guided pericardiocentesis yesterday with removal 1.2 L bloody fluid, Drained 270ml overnight. Patient remains on Neosyn 40 mics. s/p HD yesterday with removal 2L. Objective Vital Signs Date Time Temp Pulse Resp B/P Pulse Ox O2 Delivery O2 Flow Rate FiO2 11/02/16 10:34 96 11/02/16 10:00 84 11/02/16 08:00 97.4 17 104/58 11/02/16 07:00 Nasal Cannula 1.00 10/31/16 15:55 Intake and Output 11/01/16 11/01/16 11/02/16 08:00 16:00 00:00 Intake Total 301 ml 192 ml 568 ml Output Total 0 ml 2000 ml 180 ml Balance 301 ml -1808 ml 388 ml Result Diagram: 11/02/16 0340 11/02/16 0340 Other Results Laboratory Tests Test 11/01/16 11/01/16 11/02/16 13:05 17:14 03:40 Erythrocyte Sedimentation Rate 29 mm/hr C-Reactive Protein 1.21 MG/DL Total Protein 3.8 GM/DL Complement C3 93 MG/DL Complement C4 21 MG/DL [id number] 20.90 mcg/mL Pericardial Fluid WBC 369 /MM3 Pericardial Fluid RBC 5621153 /MM3 Pericardial Fluid Neutrophils 47 % Pericardial Fluid Lymphocytes 33 % Pericardial Fluid Monocytes 4 % Pericardial Fluid Eosinophils 12 % Pericardial Fluid Plasma Cells 1 % Pericardial Fluid Histiocytes 2 % Pericardial Fluid Mesothelial 1 % Cells White Blood Count 8.5 TH/MM3 Red Blood Count 3.39 MIL/MM3 Hemoglobin 10.8 GM/DL Hematocrit 33.9 % Mean Corpuscular Volume 99.7 FL Mean Corpuscular Hemoglobin 31.9 PG Mean Corpuscular Hemoglobin 32.0 % Concent Red Cell Distribution Width 15.2 % Platelet Count 237 TH/MM3 Mean Platelet Volume 8.2 FL Neutrophils (%) (Auto) 59.5 % Lymphocytes (%) (Auto) 21.1 % Monocytes (%) (Auto) 15.5 % Eosinophils (%) (Auto) 3.6 % Basophils (%) (Auto) 0.3 % Neutrophils # (Auto) 5.1 TH/MM3 Lymphocytes # (Auto) 1.8 TH/MM3 Monocytes # (Auto) 1.3 TH/MM3 Eosinophils # (Auto) 0.3 TH/MM3 Basophils # (Auto) 0.0 TH/MM3 CBC Comment DIFF FINAL Differential Comment Sodium Level 136 MEQ/L Potassium Level 4.0 MEQ/L Chloride Level 99 MEQ/L Carbon Dioxide Level 32.2 MEQ/L Anion Gap 5 MEQ/L Blood Urea Nitrogen 23 MG/DL Creatinine 4.28 MG/DL Estimat Glomerular Filtration 11 ML/MIN Rate Random Glucose 82 MG/DL Calcium Level 9.5 MG/DL Random Vancomycin Level 3.9 COMMENT Imaging Chest X-Ray 11/01/16 0000 Signed Impressions: Service Date/Time: Tuesday, November 01, 2016 02:55 - CONCLUSION: Stable examination with persistent cardiomegaly and bibasilar infiltrates right worse than left. Nazario Kovacs MD Chest CT 10/31/16 0000 Signed Impressions: Service Date/Time: Monday, October 31, 2016 14:33 - CONCLUSION: 1. Moderate to large pericardial effusion. 2. Moderate-sized area of right lower lobe consolidation. 3. Coarse calcifications diffusely in the right pleura. Indicating prior pleurodesis. Randell Juan MD Last Impressions Pericardiocentesis 11/01/16 Signed Impressions: Service Date/Time: Tuesday, November 01, 2016 16:36 - CONCLUSION: CT guided pericardiocentesis. Misbah Bower MD Chest X-Ray 11/01/16 Signed Impressions: Service Date/Time: Tuesday, November 01, 2016 02:55 - CONCLUSION: Stable examination with persistent cardiomegaly and bibasilar infiltrates right worse than left. Nazario Kovacs MD Chest CT 10/31/16 0000 Signed Impressions: Service Date/Time: Monday, October 31, 2016 14:33 - CONCLUSION: 1. Moderate to large pericardial effusion. 2. Moderate-sized area of right lower lobe consolidation. 3. Coarse calcifications diffusely in the right pleura. Indicating prior pleurodesis. Randell Juan MD Objective Remarks GENERAL: Patient is lying in bed in no acute resp distress SKIN: warm/dry. HEAD: Atraumatic. Normocephalic. EYES: Pupils equal and round. No scleral icterus. No injection or drainage. ENT: No nasal bleeding or discharge. NECK: Trachea midline. No JVD. CARDIOVASCULAR: Irregularly irregular . Grade 3 pansystolic murmur heard in all areas. RESPIRATORY: No accessory muscle use. Clear to auscultation. Breath sounds equal bilaterally. GASTROINTESTINAL: Abdomen soft, non-tender, nondistended. Hepatic and splenic margins not palpable. MUSCULOSKELETAL: Left-sided AV fistula with a thrill NEUROLOGICAL: Awake and alert. No obvious cranial nerve deficits. Motor grossly within normal limits. Normal speech. A/P Assessment and Plan NEURO: Anxiety -Awake and alert -As needed Xanax for anxiety RESP: Right lower lobe pneumonia -Continue with oxygen keep sat >92% -DuoNeb every 6 hours when necessary -Broad-spectrum antibiotics with Zosyn and vancomycin CV: Hypotension Atrial fibrillation with RVR Moderate to large pericardial effusion - Wean off Neosyn Monitor HR and BP keep MAP>65mmHg. -Cardiology -Dr. Melendez today will send -s/p CT guided pericardiocentesis yesterday with removal 1.2L Monitor pericardial drainage- drained 270ml since yesterday. -Echo showed EF 60-65% -Continue midodrine 20mg daily -Coumadin on hold GI: Status post liver transplant in 2008 Status post splenectomy -Continue post transplant medications including tacrolimus, Prograf level 5.9 on 11/01 -Watch for OPSI as patient had splenectomy : ESRD on HD -Monitor renal function, I/O's, avoid nephrotoxins. s/p HD yesterday with removal 2L. Cr: 4.28 today from 5.55 - Renal- Dr. Chi, HD per renal. ID: Septic shock Right lower lobe pneumonia -IV vancomycin and Zosyn renally dosed. Monitor for signs of infections ( Fever , WBC) -Follow up on blood and fluid cultures- NGTD HEME: -Monitor CBC, CMP, coags -s/p 2 units of FFP on 10/31. INR 1,4 yesterday from 1.7 -Beta 2microglobulin elevated 20.9, ? M. Myeloma, Onc consulted.-Dr. Schulz ENDO: -SSI if needed for glycemic control PROPH: -Bilateral lower extremity SCDs/Lovenox 30mg daily for DVT prophylaxis. Coumadin on hold -IV Protonix for GI prophylaxis LINES: Right IJ central line placed by the ER physician 10/31 Level 3 Steve Mattson MD Nov 02, 2016 10:46
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
--- NOTE | 2016-11-02 12:07 | HHI.NPPN ---
Subjective History of Present Illness 51 year old female with Liver Transplant with CP, A fib, Pericardial effusion Additional Remarks pericardiocentesis done Review of Systems General Constitutional: Fatigue Objective Data Data 11/01/16 11/02/16 19:00 07:00 Intake Total 192 ml 1196 ml Output Total 2000 ml 270 ml Balance -1808 ml 926 ml Intake Oral 60 ml 270 ml IV Total 132 ml 926 ml Output Urine Total 0 ml 0 ml Stool Total 0 ml Drainage Total 270 ml Hemodialysis 2000 ml # Bowel Movements 0 0 Vital Signs Date Time Temp Pulse Resp B/P Pulse Ox O2 Delivery O2 Flow Rate FiO2 11/02/16 10:34 96 11/02/16 10:00 84 11/02/16 08:00 97.4 83 17 104/58 95 11/02/16 08:00 93 11/02/16 07:00 100 Nasal Cannula 1.00 11/02/16 06:00 82 11/02/16 04:30 106 48 96 11/02/16 04:15 92 41 94 11/02/16 04:00 97.8 86 18 97/59 99 11/02/16 04:00 86 11/02/16 03:45 79 18 96/58 100 11/02/16 03:30 75 13 92/52 100 11/02/16 03:20 18 11/02/16 03:15 73 11 85/53 100 11/02/16 03:00 79 16 96/61 100 11/02/16 02:45 74 14 93/61 100 11/02/16 02:30 77 16 99/59 100 11/02/16 02:15 72 11 84/53 100 11/02/16 02:00 72 11/02/16 02:00 72 12 92/57 100 11/02/16 01:45 75 18 91/56 100 11/02/16 01:30 73 12 85/51 99 11/02/16 01:15 74 12 82/53 99 11/02/16 01:00 75 13 88/56 100 11/02/16 00:45 77 18 96/61 100 11/02/16 00:30 74 13 89/55 100 11/02/16 00:15 74 12 85/50 98 11/02/16 00:00 75 12 84/51 98 11/02/16 00:00 75 11/02/16 00:00 98.0 75 20 84/51 98 11/01/16 23:45 78 13 86/53 98 11/01/16 23:30 82 27 83/54 97 11/01/16 23:15 81 17 94/56 99 11/01/16 23:00 79 14 92/55 100 11/01/16 22:45 79 13 84/53 98 11/01/16 22:30 80 14 87/51 98 11/01/16 22:15 86 24 87/54 99 11/01/16 22:00 86 11/01/16 22:00 86 15 88/55 98 11/01/16 21:45 92 28 91/56 98 11/01/16 21:30 85 16 87/52 97 11/01/16 21:15 93 29 90/54 97 11/01/16 21:00 93 23 86/53 97 11/01/16 20:45 96 27 92/51 97 11/01/16 20:30 99 37 98/54 95 11/01/16 20:15 98 27 94/53 97 11/01/16 20:00 98 Nasal Cannula 1.00 11/01/16 20:00 98.2 97 28 93/51 98 11/01/16 20:00 97 11/01/16 19:01 97 Nasal Cannula 2.00 11/01/16 18:10 93 27 86/54 94 11/01/16 18:00 93 11/01/16 18:00 94 26 90/52 94 11/01/16 17:45 96 28 86/53 94 11/01/16 17:30 97 32 99/57 94 11/01/16 17:15 96 24 103/64 96 11/01/16 16:00 98.9 78 15 107/62 100 11/01/16 16:00 84 11/01/16 14:00 80 11/01/16 14:00 80 -: 11/02/16 0340 11/02/16 0340 Microbiology 11/01/16 Gram Stain - Final, Resulted 11/01/16 Body Fluid Culture, Resulted Pending 11/01/16 Acid Fast Stain, Received Pending 11/01/16 Mycobacterial Culture, Received Pending 11/01/16 Fungal Smear, Received Pending 11/01/16 Fungal Culture, Received Pending Physical Exam General Appearance: Well Developed Neck Neck Exam: Neck Supple Pulmonary Resp Exam: Decreased Bases Cardiology CV Exam: Regular, Normal Sinus Rhythm Gastrointestinal/Abdomen GI Exam: Soft, Non-Tender, Bowel Sounds Present, Distended Extremeties Extremities Exam: No Edema Assessment/Plan Problem List: (1) ESRD (end stage renal disease) on dialysis Plan: She has large Pericardial effusion of unknown etiology she is doing 5 days a week HHD, here she will get hemodialysis today and MWF she has low BP as well Avoid Gadolinium. HD yesterday 2 L a long discussion about liver situation and poor albumin mow getting complications Pericardiocentesis done 1.2 L drained of bloody fluid BP low possible Ascites indicating liver dysfunction post Liver transplant will obtain Liver US consult GI possible Cirrhosis ? VS Malignancy high B2 Microglobulin discussed with patient explained it could be false positive but I will consult Oncology (2) Atrial fibrillation with rapid ventricular response Plan: Has converted to NSR. Cardiology on the case. Hold Coumadin due to pericardial effusion. (3) Moderate to large pericardial effusion Plan: Etiology is unclear. Patient appears to be compliant with dialysis and does not have high waste products. Uremic pericardial effusion is not likely but cannot be ruled out. She does appear to have pneumonia. check BRITTANI SPEP C3 C4 normal high Beta 2 globulin possible malignancy Avoid anticoagulation. (4) Right lower lobe pneumonia Plan: On Vancomycin and Zosyn. She is immunosuppressed due to antirejection medications. In addition she is s/ p splenectomy, making her prone to encapsulated bacterial infection. Problem Qualifiers (1) Right lower lobe pneumonia: Qualified Code: J18.1 - Pneumonia of right lower lobe due to infectious organism Connie Mcmillan MD Nov 02, 2016 12:07
--- NOTE | 2016-11-02 12:07 | RADRPT ---
EXAM DATE/TIME: 11/02/2016 11:04 [facility] COMPARISON: CHEST SINGLE AP, November 01, 2016, 2:55. INDICATIONS : Patient is short of breath. MEDICAL HISTORY : Renal failure, chronic. Cardiovascular disease. Diabetes mellitus type II. SURGICAL HISTORY : Cholecystectomy. Liver transplant ENCOUNTER: Subsequent ACUITY: 1 day PAIN SCORE: 0/10 LOCATION: Bilateral chest FINDINGS: The heart is enlarged. There are small bilateral effusions. Note is made of a pericardial drain in pl valeriy over the left heart border. There is diffuse interstitial prominence suggesting mild congestive failure. There are multiple stents in place within the left subclavian vein. The patient's right IJ central lines in good position. CONCLUSION: 1. There is a pericardial drain in place. 2. There is been previous stenting of the left subclavian vein. 3. Right IJ catheter in good position. 4. Cardiomegaly with continued bilateral effusions and consolidative changes in the left base. 1. Misbah Bower MD on November 02, 2016 at 12:04 Board Certified Radiologist. This report was verified electronically.
[2016-11-02] MEDS: PHENYLEPHRINE INJ 40 MG in DEXTROSE 5% IN WATE 500 ML INJ 496 ML IV SCH ×2 (14:11)
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
[2016-11-02] MEDS: ENOXAPARIN SODIUM 30 MG/0.3 ML SYRINGE SQ SCH (15:38)
--- NOTE | 2016-11-02 16:45 | RADRPT ---
EXAM DATE/TIME: 11/02/2016 14:37 [facility] COMPARISON: US ABDOMEN - LOWER LIMITED, November 02, 2016, 12:24. INDICATIONS : Liver cirrhosis. MEDICAL HISTORY : Hypothyroidism. Hypercholesterolemia. Hypertension. Sleep apnea. Renal failure. Arthritis. Diabetes. Cirrhosis. SURGICAL HISTORY : Cholecystectomy. AV shunt. Liver transplant. ENCOUNTER: Initial ACUITY: 1 day PAIN SCORE: 0/10 LOCATION: Bilateral upper quadrant MEASUREMENTS: LIVER: 15.3 cm length COMMON DUCT: 5 mm RIGHT KIDNEY: 7.3 x 2.9 x 3.6 cm SPLEEN: Surgically removed. FINDINGS: LIVER: Liver demonstrates normal echogenicity without significant volume loss. There is a small 1.5 x 1.3 x 1.3 cm cyst in the right lobe liver. Otherwise, no focal mass or hepatic ductal dilatation is noted. The portal vein is patent with hepatopedal flow. Only trace amount of ascites noted on exam today. COMMON DUCT: No intraluminal mass or stone visualized. GALLBLADDER: Gallbladder is surgically absent. PANCREAS: Pancreas is largely obscured. Visualized portions are unremarkable. RIGHT KIDNEY: Right kidney is small in size with diffuse cortical thinning. There is a small anechoic cyst in the s uperior pole of the right kidney measuring 1.1 x 0.9 x 0.7 cm. No evidence for hydronephrosis or mariano l calculi. SPLEEN: Not visualized with history of prior splenectomy. CONCLUSION: 1. Very trace residual ascites likely following interval paracentesis. 2. Grossly unremarkable appearance of the liver without evidence for volume loss or significant focal mass. Small cyst in the right lobe. Patent portal vein. 3. Small chronic appearing right kidney with small 1.1 cm cyst in the superior pole. No evidence for right-sided obstructive uropathy. Neto Solis MD on November 02, 2016 at 16:35 Board Certified Radiologist. This report was verified electronically.
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
[2016-11-02] MEDS: TACROLIMUS 0.5 MG CAP PO SCH (20:13)
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
[2016-11-03] VITALS (31 sets, daily range): BP systolic 77–121; BP diastolic 49–77; PULSE 77–103; RESP 16–18; TEMP 97.6–98.4; O2SAT 69–95
[2016-11-03] MEDS: oxyCODONE/ACETAMINOPHEN 5 MG/325 MG TAB PO PRN ×4 (01:10→17:45)
[2016-11-03 03:28] LABS: BODY FLUID LDH 293 U/L (()); BODY FLUID LDH SOURCE PERICARDIAL (())
[2016-11-03] MEDS: RESP: ALBUTEROL 2.5 MG/IPRATROPIUM 0.5 MG NEB (SCH) INH ×4 (03:36→21:57)
[2016-11-03] MEDS: CHLORHEXIDINE GLUCONATE 2 % 1 PACK (2 CLOTHS) TOP SCH (04:00)
[2016-11-03 04:10] LABS: AUTOMATED NEUTROPHIL # 3.8 TH/MM3 (1.8-7.7); BASOPHIL # 0.1 TH/MM3 (0-0.2); BASOPHIL % 0.8 % (0.0-2.0); EOSINOPHIL # 0.7 TH/MM3 (0-0.4); HEMATOCRIT 33.2 % (35.0-46.0); HEMO FLAGS DIFF FINAL; LYMPHOCYTE # 1.4 TH/MM3 (1.0-4.8); MEAN CELL VOLUME 99.4 FL (80.0-100.0); MEAN CORPUSCULAR HGB CONC 32.2 % (32.0-36.0); MONO % 14.6 % (0.0-8.0); NEUT % 54.6 % (16.0-70.0); PLATELET COUNT 248 TH/MM3 (150-450); RED BLOOD COUNT 3.35 MIL/MM3 (4.00-5.30); WHITE BLOOD COUNT 7.1 TH/MM3 (4.0-11.0)
[2016-11-03 04:44] LABS: ALKALINE PHOSPHATASE 85 U/L (45-117); ALT (GPT) 17 U/L (10-53); ANION GAP 8 MEQ/L (5-15); AST (GOT) 34 U/L (15-37); BLOOD UREA NITROGEN 30 MG/DL (7-18); CHLORIDE 96 MEQ/L (98-107); GLOMERULAR FILTRATION RATE 8 ML/MIN (>89); LDH SERUM 143 U/L (84-246); SODIUM (NA) 136 MEQ/L (136-145); TOTAL BILIRUBIN ADULT 0.3 MG/DL (0.2-1.0)
[2016-11-03] MEDS: PIPERACIL-TAZO 2.25 GM PREMIX 50 ML IV SCH ×3 (05:07→20:13)
[2016-11-03 05:52] LABS: KAPPA LAMBDA RATIO 1.8 (1.57-3.93)
[2016-11-03] MEDS: TACROLIMUS 1 MG CAP PO SCH (06:09)
[2016-11-03] MEDS: LEVOTHYROXINE SODIUM 88 MCG TAB PO SCH (06:09)
--- NOTE | 2016-11-03 07:46 | HHI.CCPN ---
Subjective Remarks/Hospital Course Patient is a 51-year-old female with history of hypothyroidism, hyperlipidemia, ESRD on HD, splenectomy, liver transplant 2008, who presented to emergency room for chest pain and hypotension. Patient states that she felt sudden central chest pain and checked her BP and was hypotensive. She was diagnosed with A. fib 1 month ago, Dr. Sandy is her dedicated driver. Patient reports that since then, she has been on Coumadin. EKG in ED showed Afib with RVR. Patient was given a Cardizem IV bolus, patient's blood pressure dropped to systolics of 60s. Patient was given total 750ml bolus of IVF and was placed on cardizem gtt and Levophed. Right-sided internal jugular central line placed by ER physician. I requested a CT of the chest to evaluate right lower lobe infiltrate on chest x-ray. This showed a moderate-sized right lower lobe consolidation and moderate to large pericardial effusion I evaluated the patient in the emergency department. She is currently on Levothroid at 3 mcg/m and Cardizem infusion. I did a bedside ultrasound, which showed moderate to large pericardial effusion. The patient is in atrial fibrillation and rapid ventricular response, difficult to evaluate for tamponade physiology with limited bedside echo. Stat full echo pending at this time. Stat cardiology consult also placed -Dr. Melendez. Lizarraga cultures will be sent and patient will be placed on Zosyn and vancomycin to cover for healthcare associated pneumonia 11/01 Patient is lying in bed in NAD. Off Cardizem drip and is on Neosyn 40 mics. For Pericardiocentesis today. 11/02 patient s/p CT guided pericardiocentesis yesterday with removal 1.2 L bloody fluid, Drained 270ml overnight. Patient remains on Neosyn 40 mics. s/p HD yesterday with removal 2L. 11/03: drain with minimal output. feels good this morning. still in NSR. still on low-dose phenylephrine. Objective Vital Signs Date Time Temp Pulse Resp B/P Pulse Ox O2 Delivery O2 Flow Rate FiO2 11/03/16 06:00 77 11/03/16 05:00 78/53 11/03/16 04:30 94 11/03/16 04:00 98.0 18 11/02/16 20:45 21 11/02/16 20:00 Room Air 11/02/16 07:00 1.00 Intake and Output 11/02/16 11/02/16 11/03/16 08:00 16:00 00:00 Intake Total 628 ml 452 ml 393 ml Output Total 90 ml 0 ml 50 ml Balance 538 ml 452 ml 343 ml Result Diagram: 11/03/16 0340 11/03/16 0340 Imaging Chest X-Ray 11/01/16 0000 Signed Impressions: Service Date/Time: Tuesday, November 01, 2016 02:55 - CONCLUSION: Stable examination with persistent cardiomegaly and bibasilar infiltrates right worse than left. Nazario Kovacs MD Chest CT 10/31/16 0000 Signed Impressions: Service Date/Time: Monday, October 31, 2016 14:33 - CONCLUSION: 1. Moderate to large pericardial effusion. 2. Moderate-sized area of right lower lobe consolidation. 3. Coarse calcifications diffusely in the right pleura. Indicating prior pleurodesis. Randell Juan MD Last Impressions Pericardiocentesis 11/01/16 0000 Signed Impressions: Service Date/Time: Tuesday, November 01, 2016 16:36 - CONCLUSION: CT guided pericardiocentesis. Misbah Bower MD Chest X-Ray 11/01/16 0000 Signed Impressions: Service Date/Time: Tuesday, November 01, 2016 02:55 - CONCLUSION: Stable examination with persistent cardiomegaly and bibasilar infiltrates right worse than left. Nazario Kovacs MD Chest CT 10/31/16 0000 Signed Impressions: Service Date/Time: Monday, October 31, 2016 14:33 - CONCLUSION: 1. Moderate to large pericardial effusion. 2. Moderate-sized area of right lower lobe consolidation. 3. Coarse calcifications diffusely in the right pleura. Indicating prior pleurodesis. Randell Juan MD Objective Remarks GENERAL: Patient is lying in bed in no acute resp distress SKIN: warm/dry. HEAD: Atraumatic. Normocephalic. EYES: Pupils equal and round. No scleral icterus. No injection or drainage. ENT: No nasal bleeding or discharge. NECK: Trachea midline. No JVD. CARDIOVASCULAR: normal rate, regular rhythm . Grade 3 pansystolic murmur heard in all areas. RESPIRATORY: No accessory muscle use. Clear to auscultation. Breath sounds equal bilaterally. GASTROINTESTINAL: Abdomen soft, non-tender, nondistended. Hepatic and splenic margins not palpable. MUSCULOSKELETAL: Left-sided AV fistula with a thrill NEUROLOGICAL: Awake and alert. No obvious cranial nerve deficits. Motor grossly within normal limits. Normal speech. A/P Assessment and Plan Assessment: 51yF s/p OLTx and with ESRD admitted for sepsis, pericardial effusion with possible early tamponade clinically though not echocardiographically, now s/p pericardial drain placement. She remains on low- dose phenylephrine. we will send random cortisol level as the patient has multiple chronic medical problems and would be at high risk for adrenal insufficiency. Otherwise, will d/c cvl today. OOB with assist. wean phenylephrine. could d/c from ICU once off phenylephrine. plan for HD today. NEURO: Anxiety -Awake and alert -As needed Xanax for anxiety RESP: Right lower lobe pneumonia -Continue with oxygen keep sat >92% -DuoNeb every 6 hours when necessary -Broad-spectrum antibiotics with Zosyn and vancomycin, plan for full 7 day course. CV: Hypotension Atrial fibrillation with RVR Moderate to large pericardial effusion - Wean off Neosyn Monitor HR and BP keep MAP>65mmHg. -Cardiology -Dr. Melendez today will send -s/p CT guided pericardiocentesis yesterday with removal 1.2L Monitor pericardial drainage, this is decreasing. -Echo showed EF 60-65% -increase midodrine to 10mg po q8hr. -Coumadin on hold GI: Status post liver transplant in 2008 Status post splenectomy -Continue post transplant medications including tacrolimus, Prograf level 5.9 on 11/01 -Watch for OPSI as patient had splenectomy : ESRD on HD -Monitor renal function, I/O's, avoid nephrotoxins. plan for HD today. - Renal- Dr. Chi, HD per renal. ID: Septic shock- resolving. Right lower lobe pneumonia -IV vancomycin and Zosyn renally dosed. Monitor for signs of infections ( Fever , WBC) -Follow up on blood and fluid cultures- NGTD HEME: -Monitor CBC, CMP, coags -Beta 2microglobulin elevated 20.9, ? M. Myeloma, Onc consulted.-Dr. Schulz ENDO: -SSI if needed for glycemic control -send random cortisol level. patient does not take chronic steroids at home, but would be at high risk for adrenal insufficiency given her chronic medical problems. PROPH: -Bilateral lower extremity SCDs/Lovenox 30mg daily for DVT prophylaxis. Coumadin on hold -IV Protonix for GI prophylaxis LINES: d/c right IJ CVL. piv's. Level 3 Bruno Manriquez MD Nov 03, 2016 07:46
[2016-11-03] MEDS: VITAMIN B CMPLX/VITC/FOLIC AC CAP PO SCH (09:00)
[2016-11-03] MEDS: SEVELAMER CARBONATE 800 MG TAB PO SCH ×3 (09:00→17:45)
[2016-11-03] MEDS: MIDODRINE 5 MG TAB PO SCH ×3 (09:00→17:45)
[2016-11-03] MEDS: PANTOPRAZOLE SODIUM 40 MG VIAL IV SCH (09:00)
[2016-11-03] MEDS: DOCUSATE SODIUM 50 MG/SENNA 8.6 MG TAB PO SCH ×2 (09:00→20:12)
--- NOTE | 2016-11-03 10:07 | HHI.GIFU ---
GI Follow-up Note Consult Follow-up Subjective: Patient laying in bed comfortably, no new complaints except no bowel movement since admission. Objective: PHYSICAL EXAMINATION: BP low, on pressors No fever HEENT: EOMI No pedal edema or dependent edema. PAINT STRIPPER: alert and oriented times three. Available Data (labs, X- Rays, Procedues) : Albumin 1.5. ASSESSMENT/PLAN:Hypoalbuminemia in this patient s/p OLT in 2008. She tells me her INR was 1 two weeks ago, suggesting the liver is making proteins appropriately. We discussed protein loss; she's making no urine, so urinary protein loss is not the cause. There is no test to evaluate GI protein loss as proteins are digested as they pass through the intestinal tract. She's having no diarrhea. It's possible the low albumin level is inaccurate, as with a level this low, I would expect significant third spacing from a low oncotic pressure; she has no dependent edema and only a very small amount of ascites. We'll repeat the lab and we'll need to see if there could be a reason this level could be falsely low. It was a pleasure seeing Irasema Soto. Entered by: Uli Daily MD Nov 03, 2016 10:06
[2016-11-03] MEDS: ALBUMIN HUMAN 25% 25 GM/100 ML BAGP IV PRN ×2 (10:20→10:50)
[2016-11-03] MEDS: EPOETIN ALFA 10,000 UNITS/ML VIAL IV PRN (10:50)
--- NOTE | 2016-11-03 11:34 | HHI.NPPN ---
Subjective History of Present Illness 51 year old female with Liver Transplant with CP, A fib, Pericardial effusion Additional Remarks doing OK c/o ascites Review of Systems General Constitutional: Fatigue Objective Data Data 11/02/16 11/03/16 19:00 07:00 Intake Total 452 ml 627 ml Output Total 0 ml 60 ml Balance 452 ml 567 ml Intake Oral 360 ml 230 ml IV Total 92 ml 397 ml Output Urine Total 0 ml 0 ml Drainage Total 60 ml # Voids 0 # Bowel Movements 0 0 Vital Signs Date Time Temp Pulse Resp B/P Pulse Ox O2 Delivery O2 Flow Rate FiO2 11/03/16 10:00 99 11/03/16 08:00 92 11/03/16 08:00 98.0 91 102/64 93 11/03/16 07:20 20 11/03/16 07:00 93 11/03/16 07:00 92 Room Air 11/03/16 06:00 77 11/03/16 05:00 78/53 11/03/16 04:45 77/49 11/03/16 04:30 81 81/49 94 11/03/16 04:15 83 92/55 93 11/03/16 04:00 83 81/51 94 11/03/16 04:00 83 11/03/16 04:00 98.0 83 18 81/51 94 11/03/16 03:45 89 94/57 93 11/03/16 03:30 84 84/51 94 11/03/16 03:15 86 84/51 94 11/03/16 03:00 89 96/58 88 11/03/16 02:45 86 79/50 93 11/03/16 02:30 86 84/53 94 11/03/16 02:15 89 90/55 92 11/03/16 02:00 88 11/03/16 02:00 88 87/50 95 11/03/16 01:45 88 93/56 93 11/03/16 01:30 90 93/55 94 11/03/16 01:15 96 97/71 94 11/03/16 01:00 95 100/69 74 11/03/16 00:45 96 101/61 94 11/03/16 00:30 95 111/77 92 11/03/16 00:15 93 107/55 90 11/03/16 00:00 97.6 92 18 99/63 92 11/03/16 00:00 92 99/63 92 11/03/16 00:00 92 11/02/16 23:45 88 105/70 91 11/02/16 23:30 87 105/69 93 11/02/16 23:15 81 93/55 94 11/02/16 23:00 85 101/61 91 11/02/16 22:45 86 105/62 92 11/02/16 22:30 89 109/63 93 11/02/16 22:15 88 93/60 94 11/02/16 22:00 87 95/60 94 11/02/16 22:00 87 11/02/16 21:45 88 99/61 94 11/02/16 21:35 90 97/61 93 11/02/16 21:15 91 102/57 94 11/02/16 21:00 93 114/55 91 11/02/16 20:45 98 21 11/02/16 20:45 88 97/67 96 11/02/16 20:30 86 103/68 92 11/02/16 20:15 89 108/72 95 11/02/16 20:00 83 11/02/16 20:00 97.7 83 22 105/66 97 11/02/16 20:00 97 Room Air 11/02/16 18:00 81 11/02/16 17:00 89 96/61 96 11/02/16 16:45 88 96/61 91 11/02/16 16:30 93 97/65 91 11/02/16 16:15 96 105/68 91 11/02/16 16:00 98.3 96 16 101/65 92 11/02/16 16:00 96 11/02/16 15:46 92 110/67 95 11/02/16 15:30 89 96/66 96 11/02/16 15:15 91 92/62 93 11/02/16 15:00 86 91/61 98 11/02/16 14:45 86 93/61 11/02/16 14:30 85 87/53 98 11/02/16 14:16 96 86/49 93 11/02/16 14:01 87 99/55 95 11/02/16 14:00 85 11/02/16 13:45 89 97/56 93 11/02/16 13:30 89 96/54 96 11/02/16 13:15 84 92/51 94 11/02/16 13:00 83 92/57 96 11/02/16 12:45 85 86/51 97 11/02/16 12:30 87 96/58 95 11/02/16 12:15 83 85/52 93 11/02/16 12:00 85 11/02/16 12:00 97.9 85 16 96/58 95 11/02/16 11:30 88 90/51 93 -: 11/03/16 0340 11/03/16 0340 Physical Exam General Appearance: Well Developed Neck Neck Exam: Neck Supple Pulmonary Resp Exam: Decreased Bases Cardiology CV Exam: Regular, Normal Sinus Rhythm Gastrointestinal/Abdomen GI Exam: Soft, Non-Tender, Bowel Sounds Present, Distended Extremeties Extremities Exam: No Edema Neurologic Neuro Exam: Alert, Awake, Oriented Assessment/Plan Problem List: (1) ESRD (end stage renal disease) on dialysis Plan: She has large Pericardial effusion of unknown etiology she is doing 5 days a week HHD, here she is on hemodialysis and MWF she has low BP as well Avoid Gadolinium. HD proceedings noted UF 3 L as tolerated liver situation and poor albumin don't know why she stop manufacturing albumin check Prealbumin d/w Dr. Pedersen gastroenteropathy can be entertained, check A Fecal alpha 1 antitrypsin serum alpha 1 antitrypsin will be done and ratio will tell us if she has malabsorption now getting complications Pericardiocentesis done 1.2 L drained of bloody fluid BP low Ascites possibly due to low albumin etiology unknown GI feels Liver is functioning well Oncology input appreciated B2 Microalbumin high due to ESRD no signs of malignancy (2) Atrial fibrillation with rapid ventricular response Plan: Has converted to NSR. Cardiology on the case. Hold Coumadin due to pericardial effusion. (3) Moderate to large pericardial effusion Plan: Etiology is unclear. Patient appears to be compliant with dialysis and does not have high waste products. Uremic pericardial effusion is not likely but cannot be ruled out. She does appear to have pneumonia. check BRITTANI SPEP C3 C4 normal high Beta 2 globulin appreciate Oncology input by Dr. Schulz Avoid anticoagulation. (4) Right lower lobe pneumonia Plan: On Vancomycin and Zosyn. She is immunosuppressed due to antirejection medications. In addition she is s/ p splenectomy, making her prone to encapsulated bacterial infection. Problem Qualifiers (1) Right lower lobe pneumonia: Qualified Code: J18.1 - Pneumonia of right lower lobe due to infectious organism Connie Mcmillan MD Nov 03, 2016 11:34
[2016-11-03] MEDS ORDERED: DIATRIZOATE MEGLUM/DIATRIZOATE SOD 9 ML CUP PO ONE (12:45)
[2016-11-03] MEDS: ENOXAPARIN SODIUM 30 MG/0.3 ML SYRINGE SQ SCH (15:10)
--- NOTE | 2016-11-03 17:45 | PD.CARD.PN ---
Subjective Subjective Remarks feeling better Objective Vital Signs / I&O Vital Signs Date Time Temp Pulse Resp B/P Pulse Ox O2 Delivery O2 Flow Rate FiO2 11/03/16 14:00 103 11/03/16 12:00 101 11/03/16 12:00 98.3 101 100/59 69 11/03/16 10:00 99 11/03/16 08:00 92 11/03/16 08:00 98.0 91 102/64 93 11/03/16 07:20 20 11/03/16 07:00 93 11/03/16 07:00 92 Room Air 11/03/16 06:00 77 11/03/16 05:00 78/53 11/03/16 04:45 77/49 11/03/16 04:30 81 81/49 94 11/03/16 04:15 83 92/55 93 11/03/16 04:00 83 81/51 94 11/03/16 04:00 83 11/03/16 04:00 98.0 83 18 81/51 94 11/03/16 03:45 89 94/57 93 11/03/16 03:30 84 84/51 94 11/03/16 03:15 86 84/51 94 11/03/16 03:00 89 96/58 88 11/03/16 02:45 86 79/50 93 11/03/16 02:30 86 84/53 94 11/03/16 02:15 89 90/55 92 11/03/16 02:00 88 11/03/16 02:00 88 87/50 95 11/03/16 01:45 88 93/56 93 11/03/16 01:30 90 93/55 94 11/03/16 01:15 96 97/71 94 11/03/16 01:00 95 100/69 74 11/03/16 00:45 96 101/61 94 11/03/16 00:30 95 111/77 92 11/03/16 00:15 93 107/55 90 11/03/16 00:00 97.6 92 18 99/63 92 11/03/16 00:00 92 99/63 92 11/03/16 00:00 92 11/02/16 23:45 88 105/70 91 11/02/16 23:30 87 105/69 93 11/02/16 23:15 81 93/55 94 11/02/16 23:00 85 101/61 91 11/02/16 22:45 86 105/62 92 11/02/16 22:30 89 109/63 93 11/02/16 22:15 88 93/60 94 11/02/16 22:00 87 95/60 94 11/02/16 22:00 87 11/02/16 21:45 88 99/61 94 11/02/16 21:35 90 97/61 93 11/02/16 21:15 91 102/57 94 11/02/16 21:00 93 114/55 91 11/02/16 20:45 98 21 11/02/16 20:45 88 97/67 96 11/02/16 20:30 86 103/68 92 11/02/16 20:15 89 108/72 95 11/02/16 20:00 83 11/02/16 20:00 97.7 83 22 105/66 97 11/02/16 20:00 97 Room Air 11/02/16 18:00 81 I/O 11/02/16 11/02/16 11/02/16 11/03/16 11/03/16 11/03/16 07:00 15:00 23:00 07:00 15:00 23:00 Intake Total 628 ml 452 ml 393 ml 234 ml 272 ml Output Total 90 ml 0 ml 50 ml 10 ml 3305 ml Balance 538 ml 452 ml 343 ml 224 ml -3033 ml Intake Oral 120 ml 360 ml 200 ml 30 ml 220 ml IV Total 508 ml 92 ml 193 ml 204 ml 52 ml Output Urine Total 0 ml 0 ml 0 ml 0 ml 0 ml Stool Total 0 ml Drainage Total 90 ml 50 ml 10 ml 5 ml Hemodialysis 3300 ml # Voids 0 # Bowel Movements 0 0 0 0 Physical Exam heart s1s2 controlled sinus no edema Laboratory Laboratory Tests Test 11/02/16 11/03/16 11/03/16 11/03/16 21:15 03:40 08:15 11:25 Immunoglobulin G Total 302 MG/DL Immunoglobulin A 95 MG/DL Immunoglobulin M 30 MG/DL Immunoglobulin [place]/Lambda 1.80 Ratio [place] Light Chain Analysis 92 MG/DL Lambda Light Chain Analysis 51 MG/DL White Blood Count 7.1 TH/MM3 Red Blood Count 3.35 MIL/MM3 Hemoglobin 10.7 GM/DL Hematocrit 33.2 % Mean Corpuscular Volume 99.4 FL Mean Corpuscular Hemoglobin 32.0 PG Mean Corpuscular Hemoglobin 32.2 % Concent Red Cell Distribution Width 15.0 % Platelet Count 248 TH/MM3 Mean Platelet Volume 8.2 FL Neutrophils (%) (Auto) 54.6 % Lymphocytes (%) (Auto) 20.0 % Monocytes (%) (Auto) 14.6 % Eosinophils (%) (Auto) 10.0 % Basophils (%) (Auto) 0.8 % Neutrophils # (Auto) 3.8 TH/MM3 Lymphocytes # (Auto) 1.4 TH/MM3 Monocytes # (Auto) 1.0 TH/MM3 Eosinophils # (Auto) 0.7 TH/MM3 Basophils # (Auto) 0.1 TH/MM3 CBC Comment DIFF FINAL Differential Comment Sodium Level 136 MEQ/L Potassium Level 4.0 MEQ/L Chloride Level 96 MEQ/L Carbon Dioxide Level 32.0 MEQ/L Anion Gap 8 MEQ/L Blood Urea Nitrogen 30 MG/DL Creatinine 5.38 MG/DL Estimat Glomerular Filtration 8 ML/MIN Rate Random Glucose 87 MG/DL Calcium Level 9.5 MG/DL Total Bilirubin 0.3 MG/DL Aspartate Amino Transf 34 U/L (AST/SGOT) Alanine Aminotransferase 17 U/L (ALT/SGPT) Alkaline Phosphatase 85 U/L Lactate Dehydrogenase 143 U/L Total Protein 4.4 GM/DL Albumin 1.5 GM/DL 2.8 GM/DL Tumor Marker Alpha Fetoprotein 2.7 NG/ML Carcinoembryonic Antigen 3.4 NG/ML Random Cortisol 24.3 MCG/DL Prealbumin 14 MG/DL Assessment and Plan Problem List: (1) Hypotension Assessment and Plan: off pressors (2) Right lower lobe pneumonia (3) ESRD (end stage renal disease) on dialysis (4) Atrial fibrillation with rapid ventricular response Assessment and Plan: sinus rhythm echo seen and no effusion ef 65% of lv calcified mitral valve consider anticoagulation in 24-48 h if no other procedures expected (5) Moderate to large pericardial effusion (6) Sepsis (7) History of liver transplant Problem Qualifiers (1) Hypotension: Qualified Code: I95.9 - Hypotension, unspecified hypotension type (2) Right lower lobe pneumonia: Qualified Code: J18.1 - Pneumonia of right lower lobe due to infectious organism (3) Sepsis: Qualified Code: A41.9 - Sepsis, due to unspecified organism Soniya Melendez MD Nov 03, 2016 17:45
[2016-11-03] MEDS: TACROLIMUS 0.5 MG CAP PO SCH (20:12)
[2016-11-03 22:28] LABS: ALBUMIN SPE 1.98 GM/DL (3.50-5.00); ALPHA 1 GLOBULIN 0.28 GM/DL (0.11-0.29); ALPHA 2 GLOBULIN 0.65 GM/DL (0.22-1.00); BETA GLOBULINS (SPE) 0.5 GM/DL (0.53-1.03)
[2016-11-04] VITALS (13 sets, daily range): BP systolic 94–165; BP diastolic 55–92; PULSE 81–104; RESP 16–20; TEMP 96.6–98.6; O2SAT 92–96
[2016-11-04 01:25] LABS: POTASSIUM 3.9 MEQ/L (3.5-5.1)
[2016-11-04] MEDS: RESP: ALBUTEROL 2.5 MG/IPRATROPIUM 0.5 MG NEB (SCH) INH ×4 (03:25→22:33)
[2016-11-04] MEDS: CHLORHEXIDINE GLUCONATE 2 % 1 PACK (2 CLOTHS) TOP SCH ×2 (04:00→19:54)
[2016-11-04] MEDS: PIPERACIL-TAZO 2.25 GM PREMIX 50 ML IV SCH ×3 (05:14→19:53)
[2016-11-04] MEDS: LEVOTHYROXINE SODIUM 88 MCG TAB PO SCH (05:14)
[2016-11-04] MEDS: TACROLIMUS 1 MG CAP PO SCH (05:14)
[2016-11-04 05:38] LABS: HEMATOCRIT 33.7 % (35.0-46.0); MEAN CELL VOLUME 99.2 FL (80.0-100.0); MEAN CORPUSCULAR HEMOGLOBIN 33.4 PG (27.0-34.0); MEAN CORPUSCULAR HGB CONC 33.7 % (32.0-36.0); PLATELET COUNT 265 TH/MM3 (150-450); RED BLOOD COUNT 3.39 MIL/MM3 (4.00-5.30); REVIEW FLAG FINAL; WHITE BLOOD COUNT 7.1 TH/MM3 (4.0-11.0)
[2016-11-04 06:00] LABS: BICARBONATE 31.2 MEQ/L (21.0-32.0)
[2016-11-04] MEDS: oxyCODONE/ACETAMINOPHEN 5 MG/325 MG TAB PO PRN ×3 (06:05→20:47)
[2016-11-04] MEDS ORDERED: MAGNESIUM CITRATE SOLN 300 ML BTL PO ONE (07:45)
--- NOTE | 2016-11-04 07:49 | HHI.GIFU ---
GI Follow-up Note Consult Follow-up Subjective: Patient laying in bed comfortably, no new complaints except still no bowel movement. 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 Available Data (labs, X- Rays, Procedues) : Labs noted. ASSESSMENT/PLAN:Hypoalbuminemia; I've put an article in the chart about protein- losing gastroenteropathy. The (presumed chronic) pericardial effusion may explain the low albumin. Stool an serum [id number] have been ordered to check for protein loss. We'll give her a dose of Magnesium citrate. It was a pleasure seeing Irasema Soto. Entered by: Uli Daily MD Nov 04, 2016 07:49
[2016-11-04] MEDS: MIDODRINE 5 MG TAB PO SCH ×3 (08:54→17:53)
[2016-11-04] MEDS: DOCUSATE SODIUM 50 MG/SENNA 8.6 MG TAB PO SCH ×2 (08:54→19:56)
[2016-11-04] MEDS: VITAMIN B CMPLX/VITC/FOLIC AC CAP PO SCH (08:54)
[2016-11-04] MEDS: SEVELAMER CARBONATE 800 MG TAB PO SCH ×3 (08:54→17:53)
[2016-11-04] MEDS: PANTOPRAZOLE SODIUM 40 MG VIAL IV SCH (08:55)
--- NOTE | 2016-11-04 09:14 | ECHRPT ---
Indication: vegetations, pericardial eff CONCLUSIONS Normal left ventricular size. Wall thickness is normal. The left ventricular systolic function is normal with an estimated ejection fraction in the range of 55-60%. RA enlargement. Calcification of the posterior mitral valve leaflet. Mitral annular calcification is present. Trace mitral valve regurgitation. Mobile echodensity is noted on the mitral valve consistent with vegetation. There is a small pericardial effusion present. A small pleural effusion is noted. BP: 100 / 59 HR: 101 Rhythm: Sinus Technical Quality: Technically difficult study FINDINGS Left Ventricle Normal left ventricular size. Wall thickness is normal. The left ventricular systolic function is normal with an estimated ejection fraction in the range of 55-60%. Right Atrium RA enlargement. Mitral Valve Calcification of the posterior mitral valve leaflet. Mitral annular calcification is present. Trace mitral valve regurgitation. Mobile echodensity is noted on the mitral valve consistent with vegetation. Pericardium There is a small pericardial effusion present. A small pleural effusion is noted. No hemodynamically significant echocardiographic features were observed (no pre-tamponade physiology). Evelyn Silverio MD, FACC Edited by: [employer] [facility] Provider Network Manager (Electronically Signed) Final Date:04 November 2016 09:13 Amended: 04 November 2016 13:16 MTDD
--- NOTE | 2016-11-04 10:47 | HHI.NPPN ---
Subjective History of Present Illness 51 year old female with Liver Transplant with CP, A fib, Pericardial effusion Additional Remarks doing OK c/o ascites Review of Systems General Constitutional: Fatigue Objective Data Data 11/03/16 11/04/16 19:00 07:00 Intake Total 272 ml 280 ml Output Total 3305 ml 15 ml Balance -3033 ml 265 ml Intake Oral 220 ml 200 ml IV Total 52 ml 80 ml Output Urine Total 0 ml 0 ml Drainage Total 5 ml 15 ml Hemodialysis 3300 ml # Bowel Movements 0 0 Vital Signs Date Time Temp Pulse Resp B/P Pulse Ox O2 Delivery O2 Flow Rate FiO2 11/04/16 08:00 98.3 100 18 117/67 94 11/04/16 08:00 100 11/04/16 07:11 18 11/04/16 07:00 97 120/64 93 11/04/16 07:00 93 Room Air 11/04/16 06:00 93 11/04/16 06:00 93 139/67 93 11/04/16 05:00 93 105/58 92 11/04/16 04:00 86 11/04/16 04:00 97.9 86 16 94/57 94 11/04/16 02:00 88 11/04/16 00:00 81 11/04/16 00:00 97.7 81 16 108/55 92 11/03/16 22:00 85 11/03/16 20:00 95 11/03/16 20:00 98.0 94 16 121/71 95 11/03/16 19:00 94 Room Air 11/03/16 18:00 92 11/03/16 16:00 98.4 95 89/50 91 11/03/16 16:00 95 11/03/16 14:00 103 11/03/16 12:00 101 11/03/16 12:00 98.3 101 100/59 69 -: 11/04/16 0434 11/04/16 0434 Physical Exam General Appearance: Well Developed Neck Neck Exam: Neck Supple Pulmonary Resp Exam: Decreased Bases Cardiology CV Exam: Regular, Normal Sinus Rhythm Gastrointestinal/Abdomen GI Exam: Soft, Non-Tender, Bowel Sounds Present, Distended Extremeties Extremities Exam: No Edema Neurologic Neuro Exam: Alert, Awake, Oriented Assessment/Plan Problem List: (1) ESRD (end stage renal disease) on dialysis Plan: She has large Pericardial effusion of unknown etiology she is doing 5 days a week HHD, here she is on hemodialysis and MWF she has low BP as well Avoid Gadolinium. 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 Pedersen gastroenteropathy can be entertained, check A Fecal alpha 1 antitrypsin serum alpha 1 antitrypsin will be done and ratio will tell us if she has malabsorption now getting complications Pericardiocentesis done 1.2 L drained of bloody fluid BP low Ascites possibly due to low albumin etiology unknown GI feels Liver is functioning well Oncology input appreciated B2 Microalbumin high due to ESRD no signs of malignancy LDH not high CEA neg BRITTANI neg (2) Atrial fibrillation with rapid ventricular response Plan: Has converted to NSR. Cardiology on the case. on Coumadin (3) Moderate to large pericardial effusion Plan: Etiology is unclear. Patient appears to be compliant with dialysis and does not have high waste products. Uremic pericardial effusion is not likely but cannot be ruled out. She does appear to have pneumonia. check BRITTANI SPEP C3 C4 normal high Beta 2 globulin appreciate Oncology input by Dr. Schulz on anticoagulation. (4) Right lower lobe pneumonia Plan: On Vancomycin and Zosyn. She is immunosuppressed due to antirejection medications. In addition she is s/ p splenectomy, making her prone to encapsulated bacterial infection. Problem Qualifiers (1) Right lower lobe pneumonia: Qualified Code: J18.1 - Pneumonia of right lower lobe due to infectious organism Connie Mcmillan MD Nov 04, 2016 10:47
--- NOTE | 2016-11-04 13:41 | RADRPT ---
EXAM DATE/TIME: 11/04/2016 10:44 [facility] COMPARISON: CT THORAX W/O CONTRAST, October 31, 2016, 14:33. INDICATIONS : Abdominal pain and nausea. ORAL CONTRAST: Patient refused oral contrast. RADIATION DOSE: 10.29 CTDIvol (mGy) MEDICAL HISTORY : Renal failure, chronic. Diabetes mellitus type 2. Hypertension. SURGICAL HISTORY : Cholecystectomy. Liver transplant. ENCOUNTER: Initial ACUITY: 2 days PAIN SCALE: 3/10 LOCATION: Bilateral lower quadrant TECHNIQUE: Volumetric scanning of the abdomen and pelvis was performed. Using automated exposure control and adjustment of the mA and/or kV according to patient size, radiation dose was kept as low as reasonably achievable to obtain optimal diagnostic quality images. FINDINGS: LOWER LUNGS: Small to moderate left pleural effusion with associated left lower lobe airspace dis ease.. Redemonstration of post pleura the cyst changes on the right with improved right lower lobe ai rspace disease. Partially imaged 3.7 x 1.5 cm subcutaneous cyst. LIVER: 2.7 x 1.1 x 1.0 cm in the hypodense lesion in the medial segment 5 of the liver. Otherwise , unremarkable without evidence for hepatic ductal dilatation. Gallbladder is surgically absent. SPLEEN: Surgically absent. PANCREAS: Within normal limits. KIDNEYS: Kidneys are atrophic in appearance without evidence for radiopaque renal calculi or hydr onephrosis. No significant contour deforming masses. ADRENAL GLANDS: Within normal limits. VASCULAR: Atherosclerotic calcifications of the infrarenal abdominal aorta. Non-aneurysmal. BOWEL/MESENTERY: Minimal descending and sigmoid colon diverticulosis. Bowel is otherwise grossly unremarkable without evidence for obstruction. There is a moderate to large amount of ascites. There is also diffuse abdominal wall anasarca. A focal hypodense collection measuring 2.4 x 2.7 cm is noted near the anterior limb of the left adrenal gland. This appears separate from the adrenal gland and m ay reflect a small sequestration of fluid. ABDOMINAL WALL: Small area of local hernia containing fluid. Diffuse anasarca. RETROPERITONEUM: There is no lymphadenopathy. BLADDER: Appears completely decompressed. REPRODUCTIVE: Within normal limits. INGUINAL: There is no lymphadenopathy or hernia. MUSCULOSKELETAL: No significant focal lytic or blastic bony lesions. CONCLUSION: 1. Small to moderate left pleural effusion with moderate ascites and diffuse abdominal wall anasarca consistent with at least moderate positive fluid balance. 2. Chronic atrophic appearing kidneys. 3. 2.7 x 1.1 x 1.0 cm hypodense lesion in segment 5 of the liver. This cannot be further characterize d due to lack of IV contrast. Further evaluation may be performed with multiphase MRI or CT examinati on as indicated. 4. Minimal descending and sigmoid colon diverticulosis. 5. Postsurgical features of prior splenectomy, cholecystectomy and right sided pleural bases. Neto Solis MD on November 04, 2016 at 13:21 Board Certified Radiologist. This report was verified electronically.
--- NOTE | 2016-11-04 14:36 | HHI.PR ---
Subjective Remarks Follow-up pericardial effusion 11/04/16-patient seen and examined, denies any shortness of breath or chest pain. Not much of an appetite secondary to nausea earlier this morning however now stable. Pericardial drain with minimal output Objective Vitals Vital Signs Date Time Temp Pulse Resp B/P Pulse Ox O2 Delivery O2 Flow Rate FiO2 11/04/16 12:00 98.6 97 117/75 93 11/04/16 12:00 92 11/04/16 10:00 102 123/82 96 11/04/16 09:06 104 125/84 95 11/04/16 09:00 102 94 11/04/16 08:00 98.3 100 18 117/67 94 11/04/16 08:00 100 11/04/16 07:11 18 11/04/16 07:00 97 120/64 93 11/04/16 07:00 93 Room Air 11/04/16 06:00 93 11/04/16 06:00 93 139/67 93 11/04/16 05:00 93 105/58 92 11/04/16 04:00 86 11/04/16 04:00 97.9 86 16 94/57 94 11/04/16 02:00 88 11/04/16 00:00 81 11/04/16 00:00 97.7 81 16 108/55 92 11/03/16 22:00 85 11/03/16 20:00 95 11/03/16 20:00 98.0 94 16 121/71 95 11/03/16 19:00 94 Room Air 11/03/16 18:00 92 11/03/16 16:00 98.4 95 89/50 91 11/03/16 16:00 95 I/O 11/03/16 11/03/16 11/03/16 11/04/16 11/04/16 11/04/16 07:00 15:00 23:00 07:00 15:00 23:00 Intake Total 234 ml 272 ml 80 ml 200 ml Output Total 10 ml 3305 ml 5 ml 10 ml Balance 224 ml -3033 ml 75 ml 190 ml Intake Oral 30 ml 220 ml 200 ml IV Total 204 ml 52 ml 80 ml 0 ml Output Urine Total 0 ml 0 ml 0 ml 0 ml Drainage Total 10 ml 5 ml 5 ml 10 ml Hemodialysis 3300 ml # Bowel Movements 0 0 0 0 Result Diagram: 11/04/164 11/04/164 Imaging Last Impressions Abdomen/Pelvis CT 11/04/16 Signed Impressions: Service Date/Time: October 10:44 - CONCLUSION: 1. Small to moderate left pleural effusion with moderate ascites and diffuse abdominal wall anasarca consistent with at least moderate positive fluid balance. 2. Chronic atrophic appearing kidneys. 3. 2.7 x 1.1 x 1.0 cm hypodense lesion in segment 5 of the liver. This cannot be further characterized due to lack of IV contrast. Further evaluation may be performed with multiphase MRI or CT examination as indicated. 4. Minimal descending and sigmoid colon diverticulosis. 5. Postsurgical features of prior splenectomy, cholecystectomy and right sided pleural bases. Neto Solis MD Shoulder X-Ray 11/02/16 Signed Impressions: Service Date/Time: Wednesday, November 02, 2016 11:05 - CONCLUSION: No evidence of fracture or dislocation. Mynor Guallpa MD Liver Ultrasound 11/02/16 Signed Impressions: Service Date/Time: Wednesday, November 02, 2016 14:37 - CONCLUSION: 1. Very trace residual ascites likely following interval paracentesis. 2. Grossly unremarkable appearance of the liver without evidence for volume loss or significant focal mass. Small cyst in the right lobe. Patent portal vein. 3. Small chronic appearing right kidney with small 1.1 cm cyst in the superior pole. No evidence for right-sided obstructive uropathy. Neto Solis MD Chest X-Ray 11/02/16 Signed Impressions: Service Date/Time: Wednesday, November 02, 2016 11:04 - CONCLUSION: 1. There is a pericardial drain in place. 2. There is been previous stenting of the left subclavian vein. 3. Right IJ catheter in good position. 4. Cardiomegaly with continued bilateral effusions and consolidative changes in the left base. 1. Misbah Bower MD Abdomen Ultrasound 11/02/16 Signed Impressions: Service Date/Time: Wednesday, November 02, 2016 12:24 - CONCLUSION: Lower abdominal ascites. Mynor Guallpa MD Pericardiocentesis 11/01/16 Signed Impressions: Service Date/Time: Tuesday, November 01, 2016 16:36 - CONCLUSION: CT guided pericardiocentesis. Misbah Bower MD Chest CT 10/31/16 0000 Signed Impressions: Service Date/Time: Monday, October 31, 2016 14:33 - CONCLUSION: 1. Moderate to large pericardial effusion. 2. Moderate-sized area of right lower lobe consolidation. 3. Coarse calcifications diffusely in the right pleura. Indicating prior pleurodesis. Randell Juan MD Objective Remarks GENERAL: NAD SKIN: Warm and dry. HEAD: Normocephalic. EYES: No scleral icterus. No injection or drainage. NECK: Supple, trachea midline. No JVD or lymphadenopathy. CARDIOVASCULAR: Regular rate and rhythm with II/ ELLIOTT; pericardial drain with minimal output RESPIRATORY: Breath sounds equal bilaterally. No accessory muscle use. GASTROINTESTINAL: Abdomen soft, non-tender, nondistended. MUSCULOSKELETAL: No cyanosis, or edema. BACK: Nontender without obvious deformity. No CVA tenderness. A/P Problem List: (1) Hypotension ICD Code: I95.9 Status: Acute (2) Moderate to large pericardial effusion Status: Acute (3) Atrial fibrillation with rapid ventricular response ICD Code: I48.91 Status: Acute (4) Right lower lobe pneumonia ICD Code: J18.1 Status: Acute (5) Sepsis ICD Code: A41.9 Status: Acute (6) ESRD (end stage renal disease) on dialysis ICD Code: N18.6 Status: Acute Assessment and Plan 51-year-old female with Anxiety -Continue with Xanax when necessary Right lower lobe pneumonia -Continue with oxygen keep sat >92% -DuoNeb every 6 hours when necessary -Broad-spectrum antibiotics with Zosyn and vancomycin, plan for full 7 day course until 11/06/16 Hypotension-improving Atrial fibrillation with RVR Moderate to large pericardial effusion - s/p Neosyn Monitor HR and BP keep MAP>65mmHg. -s/p CT guided pericardiocentesis yesterday with removal 1.2L Monitor pericardial drainage. Management per cardiology -Dr. Melendez -Echo showed EF 60-65% -Continue midodrine 10mg po q8hr. -Coumadin on hold Status post liver transplant in 2008 Status post splenectomy -Continue post transplant medications including tacrolimus, Prograf level 5.9 on 11/01 -Watch for OPSI as patient had splenectomy Hypoalbuminemia: Secondary to pericardial effusion Treatment with magnesium citrate 1 per GI today ESRD on HD -Monitor renal function, I/O's, avoid nephrotoxins. -Hemodialysis per nephrology Septic shock- resolved Right lower lobe pneumonia -IV vancomycin and Zosyn renally dosed. Monitor for signs of infections ( Fever , WBC) -Follow up on blood and fluid cultures- NGTD -Monitor CBC, CMP, coags -Beta 2microglobulin elevated 20.9, ? M. Myeloma, Onc consulted.-Dr. Schulz PROPH: -Bilateral lower extremity SCDs/Lovenox 30mg daily for DVT prophylaxis. Coumadin on hold -PO Protonix for GI prophylaxis Total critical care time spent 32 minutes Transfer to CICU Problem Qualifiers (1) Hypotension: Qualified Code: I95.9 - Hypotension, unspecified hypotension type (2) Right lower lobe pneumonia: Qualified Code: J18.1 - Pneumonia of right lower lobe due to infectious organism (3) Sepsis: Qualified Code: A41.9 - Sepsis, due to unspecified organism Umer Hurst MD Nov 04, 2016 14:36 Qualified Code: A41.9 - Sepsis, due to unspecified organism Umer Hurst MD Nov 04, 2016 14:36
[2016-11-04] MEDS: WARFARIN SOD 5 MG TAB PO SCH (14:42)
[2016-11-04] MEDS: ENOXAPARIN SODIUM 30 MG/0.3 ML SYRINGE SQ SCH (14:42)
[2016-11-04] MEDS: TACROLIMUS 0.5 MG CAP PO SCH ×2 (17:53→19:53)
[2016-11-04 18:35] LABS: INTERNATIONAL NORMALIZED RATIO 1.1 RATIO; PROTHROMBIN TIME - PATIENT 12.7 SEC (9.8-11.6)
[2016-11-04] MEDS: ALPRAZolam 0.5 MG TAB PO PRN (20:06)
[2016-11-05] VITALS (22 sets, daily range): BP systolic 83–128; BP diastolic 50–88; PULSE 65–121; RESP 16–20; TEMP 97.4–98.9; O2SAT 84–100
[2016-11-05] MEDS: RESP: ALBUTEROL 2.5 MG/IPRATROPIUM 0.5 MG NEB (SCH) INH ×4 (04:00→22:00)
[2016-11-05] MEDS: LEVOTHYROXINE SODIUM 88 MCG TAB PO SCH (05:06)
[2016-11-05] MEDS: PIPERACIL-TAZO 2.25 GM PREMIX 50 ML IV SCH ×3 (05:06→21:01)
[2016-11-05] MEDS: TACROLIMUS 1 MG CAP PO SCH (05:06)
[2016-11-05] MEDS: oxyCODONE/ACETAMINOPHEN 5 MG/325 MG TAB PO PRN ×3 (05:07→20:23)
[2016-11-05 05:22] LABS: MEAN CELL VOLUME 100.7 FL (80.0-100.0); MEAN CORPUSCULAR HEMOGLOBIN 32.2 PG (27.0-34.0); PLATELET COUNT 281 TH/MM3 (150-450); RED BLOOD COUNT 3.47 MIL/MM3 (4.00-5.30); REVIEW FLAG FINAL; WHITE BLOOD COUNT 8.1 TH/MM3 (4.0-11.0)
[2016-11-05 05:43] LABS: BICARBONATE 32.5 MEQ/L (21.0-32.0); POTASSIUM 4.1 MEQ/L (3.5-5.1)
[2016-11-05] MEDS: ALBUMIN HUMAN 25% 25 GM/100 ML BAGP IV PRN ×2 (09:00→09:01)
--- NOTE | 2016-11-05 09:35 | HHI.GIFU ---
GI Follow-up Note Consult Follow-up Subjective: Patient laying in bed comfortably, no new complaints except no bowel movement yet, even after receiving the magnesium citrate. 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 Available Data (labs, X- Rays, Procedues) : serum [id number] level noted; we still need the fecal level result to determine if she has protein- losing gastroenteropathy. Her albumin has been low for several months. Echocardiography in mid-september, she tells me, had revealed no pericardial effusion , so the effusion is not likely the cause of the low protein level. OK to d/c from GI standpoint, on a high-fiber diet. She'll collect the stool specimen at home and will deliver it to [facility] [place] [facility] lab. ASSESSMENT/PLAN: (See above.) It was a pleasure seeing Irasema Soto. Entered by: Uli Daily MD Nov 05, 2016 09:34
--- NOTE | 2016-11-05 11:04 | HHI.NPPN ---
Subjective History of Present Illness 51 year old female with Liver Transplant with CP, A fib, Pericardial effusion Additional Remarks doing OK c/o ascites want to go home Review of Systems General Constitutional: Fatigue Objective Data Data 11/04/16 11/05/16 19:00 07:00 Intake Total 772 ml 600 ml Output Total 10 ml Balance 762 ml 600 ml Intake Oral 720 ml 500 ml IV Total 52 ml 100 ml Output Urine Total 0 ml Drainage Total 10 ml # Bowel Movements 0 Vital Signs Date Time Temp Pulse Resp B/P Pulse Ox O2 Delivery O2 Flow Rate FiO2 11/05/16 07:00 100 Nasal Cannula 2.00 11/05/16 06:07 22 11/05/16 04:00 79 11/05/16 04:00 97.4 79 16 103/55 99 11/05/16 00:00 97.5 78 18 92/53 99 11/05/16 00:00 78 11/04/16 23:00 91 Nasal Cannula 11/04/16 20:00 92 Room Air 11/04/16 20:00 96.6 91 20 165/92 92 11/04/16 20:00 91 11/04/16 16:00 98.6 97 117/75 93 11/04/16 16:00 92 11/04/16 12:00 98.6 97 117/75 93 11/04/16 12:00 92 -: 11/05/16 0427 11/05/16 0427 Physical Exam General Appearance: Well Developed Neck Neck Exam: Neck Supple Pulmonary Resp Exam: Decreased Bases Cardiology CV Exam: Regular, Normal Sinus Rhythm Gastrointestinal/Abdomen GI Exam: Soft, Non-Tender, Bowel Sounds Present, Distended Extremeties Extremities Exam: No Edema Neurologic Neuro Exam: Alert, Awake, Oriented Assessment/Plan Problem List: (1) ESRD (end stage renal disease) on dialysis Plan: She has large Pericardial effusion of unknown etiology she is doing 5 days a week HHD, here she is on hemodialysis and MWF she has low BP as well Avoid Gadolinium. Cardiology NEW MV valve vegetation culture negative reconsult Dr. 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 Pedersen gastroenteropathy can be entertained, check A Fecal alpha 1 antitrypsin serum alpha 1 antitrypsin will be done and ratio will tell us if she has malabsorption now getting complications Pericardiocentesis done 1.2 L drained of bloody fluid BP low Ascites possibly due to low albumin etiology unknown GI feels Liver is functioning well Oncology input appreciated B2 Microalbumin high due to ESRD no signs of malignancy LDH not high CEA neg BRITTANI neg Occult malignancy ? she has hypercalcemia/metabolic alkalosis Check CA 19 CA 125 , PTH related peptide (2) Atrial fibrillation with rapid ventricular response Plan: Has converted to NSR. Cardiology on the case. on Coumadin (3) Moderate to large pericardial effusion Plan: Etiology is unclear. Patient appears to be compliant with dialysis and does not have high waste products. Uremic pericardial effusion is not likely but cannot be ruled out. She does appear to have pneumonia. check BRITTANI SPEP C3 C4 normal high Beta 2 globulin appreciate Oncology input by Dr. Schulz on anticoagulation. (4) Right lower lobe pneumonia Plan: On Vancomycin and Zosyn. She is immunosuppressed due to antirejection medications. In addition she is s/ p splenectomy, making her prone to encapsulated bacterial infection. Problem Qualifiers (1) Right lower lobe pneumonia: Qualified Code: J18.1 - Pneumonia of right lower lobe due to infectious organism Connie Mcmillan MD Nov 05, 2016 11:04
[2016-11-05] MEDS: EPOETIN ALFA 10,000 UNITS/ML VIAL IV PRN (11:05)
--- NOTE | 2016-11-05 12:48 | HHI.PR ---
Subjective Remarks Follow-up pericardial effusion 11/04/16-patient seen and examined, denies any shortness of breath or chest pain. Not much of an appetite secondary to nausea earlier this morning however now stable. Pericardial drain with minimal output 11/05/16-patient seen and examined, she had dialysis today. Plan to move pericardial drain. Patient wants to go home. Objective Vitals Vital Signs Date Time Temp Pulse Resp B/P Pulse Ox O2 Delivery O2 Flow Rate FiO2 11/05/16 08:00 82 11/05/16 08:00 98.0 75 115/75 95 11/05/16 07:00 100 Nasal Cannula 2.00 11/05/16 07:00 67 100 11/05/16 06:07 22 11/05/16 06:00 81 108/59 84 11/05/16 05:00 66 100 11/05/16 04:01 72 103/55 100 11/05/16 04:00 79 100 11/05/16 04:00 79 11/05/16 04:00 97.4 79 16 103/55 99 11/05/16 03:00 65 100 11/05/16 02:01 66 83/50 98 11/05/16 02:00 66 98 11/05/16 01:00 68 98 11/05/16 00:00 97.5 78 18 92/53 99 11/05/16 00:00 78 11/05/16 00:00 78 92/53 99 11/04/16 23:00 91 Nasal Cannula 11/04/16 20:00 92 Room Air 11/04/16 20:00 96.6 91 20 165/92 92 11/04/16 20:00 91 11/04/16 16:00 98.6 97 117/75 93 11/04/16 16:00 92 I/O 11/04/16 11/04/16 11/04/16 11/05/16 11/05/16 11/05/16 06:59 14:59 22:59 06:59 14:59 22:59 Intake Total 200 ml 772 ml 250 ml 350 ml Output Total 10 ml 10 ml 3000 ml Balance 190 ml 762 ml 250 ml 350 ml -3000 ml Intake Oral 200 ml 720 ml 250 ml 250 ml IV Total 0 ml 52 ml 100 ml Output Urine Total 0 ml 0 ml Drainage Total 10 ml 10 ml Hemodialysis 3000 ml # Bowel Movements 0 0 Result Diagram: 11/05/1642611/05/16426 Objective Remarks GENERAL: NAD SKIN: Warm and dry. HEAD: Normocephalic. EYES: No scleral icterus. No injection or drainage. NECK: Supple, trachea midline. No JVD or lymphadenopathy. CARDIOVASCULAR: Regular rate and rhythm with II/ ELLIOTT; pericardial drain with minimal output RESPIRATORY: Breath sounds equal bilaterally. No accessory muscle use. GASTROINTESTINAL: Abdomen soft, non-tender, nondistended. MUSCULOSKELETAL: No cyanosis, or edema. BACK: Nontender without obvious deformity. No CVA tenderness. A/P Problem List: (1) Hypotension ICD Code: I95.9 Status: Acute (2) Moderate to large pericardial effusion Status: Acute (3) Atrial fibrillation with rapid ventricular response ICD Code: I48.91 Status: Acute (4) Right lower lobe pneumonia ICD Code: J18.1 Status: Acute (5) Sepsis ICD Code: A41.9 Status: Acute (6) ESRD (end stage renal disease) on dialysis ICD Code: N18.6 Status: Acute Assessment and Plan 51-year-old female with Anxiety -Continue with Xanax when necessary Right lower lobe pneumonia -Continue with oxygen keep sat >92% -DuoNeb every 6 hours when necessary -Broad-spectrum antibiotics with Zosyn and vancomycin, plan for full 7 day course until 11/06/16 Hypotension-improving Atrial fibrillation with RVR Moderate to large pericardial effusion - s/p Neosyn Monitor HR and BP keep MAP>65mmHg. -s/p CT guided pericardiocentesis yesterday with removal 1.2L Monitor pericardial drainage. Plan to remove pericardial drain today 11/05/16 by interventional radiology -Echo showed EF 60-65% -Continue midodrine 10mg po q8hr. -Coumadin on hold Status post liver transplant in 2008 Status post splenectomy -Continue post transplant medications including tacrolimus, Prograf level 5.9 on 11/01 -Watch for OPSI as patient had splenectomy Hypoalbuminemia: Secondary to pericardial effusion s/p magnesium citrate 1 per GI 11/04/16 Patient will need fecal level result to determine if she has protein-losing gastroenteropathy ESRD on HD -Monitor renal function, I/O's, avoid nephrotoxins. -Hemodialysis per nephrology -Occult malignancy ? she has hypercalcemia/metabolic alkalosis Check CA 19 CA 125, PTH related peptide per nephrology Septic shock- resolved Right lower lobe pneumonia -IV vancomycin and Zosyn renally dosed. Monitor for signs of infections ( Fever , WBC) -Follow up on blood and fluid cultures- NGTD -Monitor CBC, CMP, coags -Beta 2microglobulin elevated 20.9, ? M. Myeloma, Onc consulted.-Dr. Schulz PROPH: -Bilateral lower extremity SCDs/Lovenox 30mg daily for DVT prophylaxis. Coumadin on hold -PO Protonix for GI prophylaxis Transfer to CICU Problem Qualifiers (1) Hypotension: Qualified Code: I95.9 - Hypotension, unspecified hypotension type (2) Right lower lobe pneumonia: Qualified Code: J18.1 - Pneumonia of right lower lobe due to infectious organism (3) Sepsis: Qualified Code: A41.9 - Sepsis, due to unspecified organism Umer Hurst MD Nov 05, 2016 12:47
[2016-11-05] MEDS: MIDODRINE 5 MG TAB PO SCH ×3 (13:00→17:39)
[2016-11-05] MEDS: SEVELAMER CARBONATE 800 MG TAB PO SCH ×3 (13:00→17:39)
[2016-11-05] MEDS: VITAMIN B CMPLX/VITC/FOLIC AC CAP PO SCH (13:33)
[2016-11-05] MEDS: DOCUSATE SODIUM 50 MG/SENNA 8.6 MG TAB PO SCH ×2 (13:34→20:23)
[2016-11-05] MEDS: PANTOPRAZOLE SOD 40 MG DELAYED RELEASE TAB PO SCH (13:34)
[2016-11-05] MEDS: ALPRAZolam 0.5 MG TAB PO PRN ×2 (14:05→20:23)
--- NOTE | 2016-11-05 14:55 | PD.CARD.PN ---
Subjective Subjective Remarks feeling well Objective Vital Signs / I&O Vital Signs Date Time Temp Pulse Resp B/P Pulse Ox O2 Delivery O2 Flow Rate FiO2 11/05/16 14:00 121 87 11/05/16 13:00 91 95 11/05/16 12:28 97 128/56 11/05/16 12:00 98.0 75 115/75 95 11/05/16 12:00 81 11/05/16 08:00 82 11/05/16 08:00 98.0 75 115/75 95 11/05/16 07:00 100 Nasal Cannula 2.00 11/05/16 07:00 67 100 11/05/16 06:07 22 11/05/16 06:00 81 108/59 84 11/05/16 05:00 66 100 11/05/16 04:01 72 103/55 100 11/05/16 04:00 79 100 11/05/16 04:00 79 11/05/16 04:00 97.4 79 16 103/55 99 11/05/16 03:00 65 100 11/05/16 02:01 66 83/50 98 11/05/16 02:00 66 98 11/05/16 01:00 68 98 11/05/16 00:00 97.5 78 18 92/53 99 11/05/16 00:00 78 11/05/16 00:00 78 92/53 99 11/04/16 23:00 91 Nasal Cannula 11/04/16 20:00 92 Room Air 11/04/16 20:00 96.6 91 20 165/92 92 11/04/16 20:00 91 11/04/16 16:00 98.6 97 117/75 93 11/04/16 16:00 92 I/O 11/04/16 11/04/16 11/04/16 11/05/16 11/05/16 11/05/16 07:00 15:00 23:00 07:00 15:00 23:00 Intake Total 200 ml 772 ml 250 ml 350 ml 440 ml Output Total 10 ml 10 ml 3000 ml Balance 190 ml 762 ml 250 ml 350 ml -2560 ml Intake Oral 200 ml 720 ml 250 ml 250 ml 350 ml IV Total 0 ml 52 ml 100 ml 90 ml Output Urine Total 0 ml 0 ml 0 ml Drainage Total 10 ml 10 ml Hemodialysis 3000 ml # Bowel Movements 0 0 0 Physical Exam heart s1s2 controlled sinus no edema Laboratory Laboratory Tests Test 11/04/16 11/05/16 17:15 04:27 Prothrombin Time 12.7 SEC Prothromb Time International 1.1 RATIO Ratio White Blood Count 8.1 TH/MM3 Red Blood Count 3.47 MIL/MM3 Hemoglobin 11.2 GM/DL Hematocrit 35.0 % Mean Corpuscular Volume 100.7 FL Mean Corpuscular Hemoglobin 32.2 PG Mean Corpuscular Hemoglobin 32.0 % Concent Red Cell Distribution Width 15.0 % Platelet Count 281 TH/MM3 Mean Platelet Volume 8.3 FL Sodium Level 136 MEQ/L Potassium Level 4.1 MEQ/L Chloride Level 95 MEQ/L Carbon Dioxide Level 32.5 MEQ/L Anion Gap 9 MEQ/L Blood Urea Nitrogen 24 MG/DL Creatinine 5.55 MG/DL Estimat Glomerular Filtration 8 ML/MIN Rate Random Glucose 79 MG/DL Calcium Level 10.2 MG/DL Imaging echos noted and reviewed by my self Assessment and Plan Problem List: (1) Hypotension (2) Right lower lobe pneumonia (3) ESRD (end stage renal disease) on dialysis (4) Atrial fibrillation with rapid ventricular response Assessment and Plan: after review of echos there was no mentioning of vegetation in first echo there is heavy calcification in posterior leaflet mitral valve noted in both echos with trivial MR no evidence for fever or increase wc and blood cultures repeatedly negative will do more cultures and if negative continue medical management as a matter of fact the calcified segment does not move independently from valve and i believe it is just heavy calcification still in sinus rhythm and feeling well on coumadin (5) Moderate to large pericardial effusion (6) Sepsis (7) History of liver transplant Problem Qualifiers (1) Hypotension: Qualified Code: I95.9 - Hypotension, unspecified hypotension type (2) Right lower lobe pneumonia: Qualified Code: J18.1 - Pneumonia of right lower lobe due to infectious organism (3) Sepsis: Qualified Code: A41.9 - Sepsis, due to unspecified organism Soniya Melendez MD Nov 05, 2016 14:55
[2016-11-05] MEDS: WARFARIN SOD 5 MG TAB PO SCH (16:56)
[2016-11-05] MEDS: ENOXAPARIN SODIUM 30 MG/0.3 ML SYRINGE SQ SCH (16:56)
[2016-11-05] MEDS: TACROLIMUS 0.5 MG CAP PO SCH ×2 (17:39→21:02)
[2016-11-05] MEDS ORDERED: TACROLIMUS 0.5 MG CAP PO SCH ×2 (21:45→22:00)
[2016-11-06] VITALS (18 sets, daily range): BP systolic 95–135; BP diastolic 48–83; PULSE 70–97; RESP 18; TEMP 97.7–98.6; O2SAT 92–100
[2016-11-06] MEDS: RESP: ALBUTEROL 2.5 MG/IPRATROPIUM 0.5 MG NEB (SCH) INH ×3 (04:00→16:11)
[2016-11-06] MEDS: CHLORHEXIDINE GLUCONATE 2 % 1 PACK (2 CLOTHS) TOP SCH (04:00)
[2016-11-06] MEDS: PIPERACIL-TAZO 2.25 GM PREMIX 50 ML IV SCH ×2 (05:00→11:43)
[2016-11-06] MEDS: ALPRAZolam 0.5 MG TAB PO PRN (05:01)
[2016-11-06] MEDS: LEVOTHYROXINE SODIUM 88 MCG TAB PO SCH (05:01)
[2016-11-06] MEDS: oxyCODONE/ACETAMINOPHEN 5 MG/325 MG TAB PO PRN (05:01)
[2016-11-06] MEDS ORDERED: TACROLIMUS 1 MG CAP PO SCH (06:00)
[2016-11-06 06:28] LABS: HEMATOCRIT 29.9 % (35.0-46.0); MEAN CORPUSCULAR HGB CONC 33.3 % (32.0-36.0); PLATELET COUNT 215 TH/MM3 (150-450); RED BLOOD COUNT 3.02 MIL/MM3 (4.00-5.30); RED CELL DISTRIBUTION WIDTH 15.5 % (11.6-17.2); REVIEW FLAG FINAL; WHITE BLOOD COUNT 6.3 TH/MM3 (4.0-11.0)
[2016-11-06 06:46] LABS: BICARBONATE 29.9 MEQ/L (21.0-32.0); POTASSIUM 4.5 MEQ/L (3.5-5.1)
[2016-11-06] MEDS: MIDODRINE 5 MG TAB PO SCH ×2 (08:25→11:43)
[2016-11-06] MEDS: SEVELAMER CARBONATE 800 MG TAB PO SCH ×2 (08:25→11:43)
[2016-11-06] MEDS: DOCUSATE SODIUM 50 MG/SENNA 8.6 MG TAB PO SCH (08:26)
[2016-11-06] MEDS: PANTOPRAZOLE SOD 40 MG DELAYED RELEASE TAB PO SCH (08:26)
[2016-11-06] MEDS: VITAMIN B CMPLX/VITC/FOLIC AC CAP PO SCH (08:26)
--- NOTE | 2016-11-06 10:39 | HHI.NPPN ---
Subjective History of Present Illness 51 year old very pleasant lady with history of ESRD, liver transplant in 2008. 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 She has been on HD for about 41/2 years. For the past 2 years has been on home hemodialysis. She undergoes dialysis 5 times/week. helps her. Interval History Patient diagnosed with Pericardial effusion. Additional Remarks Patient now sitting on the chair, breathing is better, no chest pain, feeling better. Review of Systems General Constitutional: Fatigue Objective Data Data 11/05/16 11/06/16 19:00 07:00 Intake Total 440 ml 680 ml Output Total 3000 ml 0 ml Balance -2560 ml 680 ml Intake Oral 350 ml 480 ml IV Total 90 ml 200 ml Output Urine Total 0 ml 0 ml Hemodialysis 3000 ml # Bowel Movements 0 2 Vital Signs Date Time Temp Pulse Resp B/P Pulse Ox O2 Delivery O2 Flow Rate FiO2 11/06/16 09:24 93 21 11/06/16 08:33 97.8 77 18 111/73 100 11/06/16 08:00 Nasal Cannula 2.00 11/06/16 08:00 76 11/06/16 07:44 77 11/06/16 06:00 80 11/06/16 05:00 81 11/06/16 04:00 77 11/06/16 04:00 98.6 77 18 127/48 95 11/06/16 04:00 Nasal Cannula 2.00 11/06/16 03:00 80 11/06/16 02:00 78 11/06/16 01:00 81 11/06/16 00:00 98.5 73 18 95/53 92 11/06/16 00:00 Nasal Cannula 2.00 11/06/16 00:00 87 11/05/16 23:00 83 11/05/16 22:00 95 21 11/05/16 22:00 84 11/05/16 21:00 80 11/05/16 20:00 98.9 89 20 125/88 97 11/05/16 20:00 Room Air 11/05/16 20:00 87 11/05/16 18:00 87 11/05/16 18:00 98.7 87 18 104/56 93 11/05/16 17:21 82 11/05/16 16:30 98.3 87 121/71 94 11/05/16 15:06 18 11/05/16 14:00 121 87 11/05/16 13:00 91 95 11/05/16 12:28 97 128/56 11/05/16 12:00 98.0 75 115/75 95 11/05/16 12:00 81 -: 11/06/16 0545 11/06/16 0545 Microbiology 11/05/16 Aerobic Blood Culture, Received Pending 11/05/16 Anaerobic Blood Culture, Received Pending 11/05/16 Aerobic Blood Culture, Received Pending 11/05/16 Anaerobic Blood Culture, Received Pending 11/05/16 Aerobic Blood Culture, Resulted Pending 11/05/16 Anaerobic Blood Culture - Final, Resulted QNS - SEE AEROBE REPORT Physical Exam General Appearance: No Acute Distress, Comfortable Neck Neck Exam: Neck Supple Pulmonary Resp Exam: Decreased Bases Cardiology CV Exam: Regular, Normal Sinus Rhythm Gastrointestinal/Abdomen GI Exam: Soft, Non-Tender, Bowel Sounds Present, Distended Extremeties Extremities Exam: No Edema Neurologic Neuro Exam: Alert, Awake, Oriented Assessment/Plan Problem List: (1) ESRD (end stage renal disease) on dialysis Plan: She has large Pericardial effusion of unknown etiology she is doing 5 days a week HHD, here she is on hemodialysis and MWF she has low BP as well Avoid Gadolinium. Cardiology NEW MV valve vegetation culture negative reconsult Dr. 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 Pedersen gastroenteropathy can be entertained, check A Fecal alpha 1 antitrypsin serum alpha 1 antitrypsin will be done and ratio will tell us if she has malabsorption now getting complications Pericardiocentesis done 1.2 L drained of bloody fluid BP low Ascites possibly due to low albumin etiology unknown GI feels Liver is functioning well Oncology input appreciated B2 Microalbumin high due to ESRD no signs of malignancy LDH not high CEA neg BRITTANI neg Occult malignancy ? she has hypercalcemia/metabolic alkalosis Check CA 19 CA 125 , PTH related peptide. If D/C will follow with Dr. Mcmillan as some labs are still pending. (2) Atrial fibrillation with rapid ventricular response Plan: Has converted to NSR. Cardiology on the case. on Coumadin (3) Moderate to large pericardial effusion Plan: Etiology is unclear. Patient appears to be compliant with dialysis and does not have high waste products. Uremic pericardial effusion is not likely but cannot be ruled out. She does appear to have pneumonia. check BRITTANI SPEP C3 C4 normal high Beta 2 globulin appreciate Oncology input by Dr. Schulz on anticoagulation. (4) Right lower lobe pneumonia Plan: On Vancomycin and Zosyn. She is immunosuppressed due to antirejection medications. In addition she is s/ p splenectomy, making her prone to encapsulated bacterial infection. Problem Qualifiers (1) Right lower lobe pneumonia: Qualified Code: J18.1 - Pneumonia of right lower lobe due to infectious organism Lucius Bourgeois MD Nov 06, 2016 10:38
--- NOTE | 2016-11-06 13:19 | HHI.PR ---
Subjective Remarks Follow-up pericardial effusion 11/04/16-patient seen and examined, denies any shortness of breath or chest pain. Not much of an appetite secondary to nausea earlier this morning however now stable. Pericardial drain with minimal output 11/05/16-patient seen and examined, she had dialysis today. Plan to move pericardial drain. Patient wants to go home. 11/06/16-patient seen and examined, pericardial drain was removed yesterday. Patient denies any abdominal pain Objective Vitals Vital Signs Date Time Temp Pulse Resp B/P Pulse Ox O2 Delivery O2 Flow Rate FiO2 11/06/16 12:27 97.7 70 18 111/73 97 11/06/16 12:26 70 11/06/16 11:00 83 11/06/16 10:00 72 11/06/16 09:24 93 21 11/06/16 09:00 81 11/06/16 08:33 97.8 77 18 111/73 100 11/06/16 08:00 Nasal Cannula 2.00 11/06/16 08:00 76 11/06/16 07:44 77 11/06/16 06:00 80 11/06/16 05:00 81 11/06/16 04:00 77 11/06/16 04:00 98.6 77 18 127/48 95 11/06/16 04:00 Nasal Cannula 2.00 11/06/16 03:00 80 11/06/16 02:00 78 11/06/16 01:00 81 11/06/16 00:00 98.5 73 18 95/53 92 11/06/16 00:00 Nasal Cannula 2.00 11/06/16 00:00 87 11/05/16 23:00 83 11/05/16 22:00 95 21 11/05/16 22:00 84 11/05/16 21:00 80 11/05/16 20:00 98.9 89 20 125/88 97 11/05/16 20:00 Room Air 11/05/16 20:00 87 11/05/16 18:00 87 11/05/16 18:00 98.7 87 18 104/56 93 11/05/16 17:21 82 11/05/16 16:30 98.3 87 121/71 94 11/05/16 15:06 18 11/05/16 14:00 121 87 I/O 11/05/16 11/05/16 11/05/16 11/06/16 11/06/16 11/06/16 07:00 15:00 23:00 07:00 15:00 23:00 Intake Total 350 ml 440 ml 680 ml Output Total 3000 ml 0 ml Balance 350 ml -2560 ml 680 ml Intake Oral 250 ml 350 ml 480 ml IV Total 100 ml 90 ml 200 ml Output Urine Total 0 ml 0 ml Hemodialysis 3000 ml # Bowel Movements 0 2 Result Diagram: 11/06/16 0545 11/06/16 0545 Imaging Last Impressions Abdomen/Pelvis CT 11/04/16 0000 Signed Impressions: Service Date/Time: October 10:44 - CONCLUSION: 1. Small to moderate left pleural effusion with moderate ascites and diffuse abdominal wall anasarca consistent with at least moderate positive fluid balance. 2. Chronic atrophic appearing kidneys. 3. 2.7 x 1.1 x 1.0 cm hypodense lesion in segment 5 of the liver. This cannot be further characterized due to lack of IV contrast. Further evaluation may be performed with multiphase MRI or CT examination as indicated. 4. Minimal descending and sigmoid colon diverticulosis. 5. Postsurgical features of prior splenectomy, cholecystectomy and right sided pleural bases. Neto Solis MD Shoulder X-Ray 11/02/16 Signed Impressions: Service Date/Time: Wednesday, November 02, 2016 11:05 - CONCLUSION: No evidence of fracture or dislocation. Mynor Guallpa MD Liver Ultrasound 11/02/16 Signed Impressions: Service Date/Time: Wednesday, November 02, 2016 14:37 - CONCLUSION: 1. Very trace residual ascites likely following interval paracentesis. 2. Grossly unremarkable appearance of the liver without evidence for volume loss or significant focal mass. Small cyst in the right lobe. Patent portal vein. 3. Small chronic appearing right kidney with small 1.1 cm cyst in the superior pole. No evidence for right-sided obstructive uropathy. Neto Solis MD Chest X-Ray 11/02/16 Signed Impressions: Service Date/Time: Wednesday, November 02, 2016 11:04 - CONCLUSION: 1. There is a pericardial drain in place. 2. There is been previous stenting of the left subclavian vein. 3. Right IJ catheter in good position. 4. Cardiomegaly with continued bilateral effusions and consolidative changes in the left base. 1. Misbah Bower MD Abdomen Ultrasound 11/02/16 0000 Signed Impressions: Service Date/Time: Wednesday, November 02, 2016 12:24 - CONCLUSION: Lower abdominal ascites. Mynor Guallpa MD Pericardiocentesis 11/01/16 0000 Signed Impressions: Service Date/Time: Tuesday, November 01, 2016 16:36 - CONCLUSION: CT guided pericardiocentesis. Misbah Bower MD Chest CT 10/31/16 0000 Signed Impressions: Service Date/Time: Monday, October 31, 2016 14:33 - CONCLUSION: 1. Moderate to large pericardial effusion. 2. Moderate-sized area of right lower lobe consolidation. 3. Coarse calcifications diffusely in the right pleura. Indicating prior pleurodesis. Randell Juan MD Objective Remarks GENERAL: NAD SKIN: Warm and dry. HEAD: Normocephalic. EYES: No scleral icterus. No injection or drainage. NECK: Supple, trachea midline. No JVD or lymphadenopathy. CARDIOVASCULAR: Regular rate and rhythm with II/ ELLIOTT; RESPIRATORY: Breath sounds equal bilaterally. No accessory muscle use. GASTROINTESTINAL: Abdomen soft, non-tender, nondistended. MUSCULOSKELETAL: No cyanosis, or edema. BACK: Nontender without obvious deformity. No CVA tenderness. Procedures Pericardiocentesis A/P Problem List: (1) Hypotension ICD Code: I95.9 Status: Resolved (2) Moderate to large pericardial effusion Status: Resolved (3) Atrial fibrillation with rapid ventricular response ICD Code: I48.91 Status: Chronic (4) Right lower lobe pneumonia ICD Code: J18.1 Status: Acute (5) Sepsis ICD Code: A41.9 Status: Resolved (6) ESRD (end stage renal disease) on dialysis ICD Code: N18.6 Status: Chronic Assessment and Plan 51-year-old female with Anxiety -Continue with Xanax when necessary Right lower lobe pneumonia -Continue with oxygen keep sat >92% -DuoNeb every 6 hours when necessary -Broad-spectrum antibiotics with Zosyn and vancomycin, 7 day course to be completed today 11/06/16 Hypotension-improving Atrial fibrillation with RVR Moderate to large pericardial effusion - s/p Neosyn Monitor HR and BP keep MAP>65mmHg. -s/p CT guided pericardiocentesis yesterday with removal 1.2L Monitor pericardial drainage. Plan to remove pericardial drain today 11/05/16 by interventional radiology -Echo showed EF 60-65% -Continue midodrine 10mg po q8hr. -Resume Coumadin . Coumadin 10mg x 1 now then Coumadin 10mg x 1 on 11/07/16 finally Coumadin 5mg daily started 11/08/16 with INR/PT monitoring on 11/09/16 Status post liver transplant in 2008 Status post splenectomy -Continue post transplant medications including tacrolimus, Prograf level 5.9 on 11/01 -Watch for OPSI as patient had splenectomy Hypoalbuminemia: Secondary to pericardial effusion s/p magnesium citrate 1 per GI 11/04/16 Patient will need fecal level result to determine if she has protein-losing gastroenteropathy ESRD on HD -Monitor renal function, I/O's, avoid nephrotoxins. -Hemodialysis per nephrology -Occult malignancy ? she has hypercalcemia/metabolic alkalosis. CA 19-9 normal however CA 125 elevated, PTH related peptide pending per nephrology Septic shock- resolved Right lower lobe pneumonia -IV vancomycin and Zosyn renally dosed. Monitor for signs of infections ( Fever , WBC) -Follow up on blood and fluid cultures- NGTD -Monitor CBC, CMP, coags -Beta 2microglobulin elevated 20.9, ? M. Myeloma, Onc consulted.-Dr. Schulz PROPH: -Bilateral lower extremity SCDs/Lovenox 30mg daily for DVT prophylaxis. -PO Protonix for GI prophylaxis Problem Qualifiers (1) Hypotension: Qualified Code: I95.9 - Hypotension, unspecified hypotension type (2) Right lower lobe pneumonia: Qualified Code: J18.1 - Pneumonia of right lower lobe due to infectious organism (3) Sepsis: Qualified Code: A41.9 - Sepsis, due to unspecified organism Umer Hurst MD Nov 06, 2016 13:19
[2016-11-06] MEDS ORDERED: COUM10TA PO (13:24)
--- NOTE | 2016-11-06 13:27 | HHI.FF ---
Face to Face Verification Diagnosis: (1) Atrial fibrillation with rapid ventricular response (2) ESRD (end stage renal disease) on dialysis (3) Moderate to large pericardial effusion Home Health Nursing Order: Signs/symptoms of disease process I have seen patient Irasema Soto on 11/06/16. My clinical findings support the need for the requested home health care services because: Deconditioned w/ increased weakness I certify that my clinical findings support that this patient is homebound because: Poor cardiac reserve Umer Hurst MD Nov 06, 2016 13:27
--- NOTE | 2016-11-06 13:28 | HHI.DS ---
Discharge Summary Admission Date Oct 31, 2016 at 14:41 Discharge Date: Nov 06, 2016 Admitting Diagnosis afib with rvr (1) Hypotension ICD Code: I95.9 Diagnosis: Principal (2) Moderate to large pericardial effusion Diagnosis: Principal (3) Atrial fibrillation with rapid ventricular response ICD Code: I48.91 Diagnosis: Principal (4) Right lower lobe pneumonia ICD Code: J18.1 Diagnosis: Principal (5) Sepsis ICD Code: A41.9 Diagnosis: Principal (6) ESRD (end stage renal disease) on dialysis ICD Code: N18.6 Diagnosis: Secondary Procedures Pericardiocentesis Brief History - From Admission Patient is a 51-year-old female with history of hypothyroidism, hyperlipidemia, ESRD on HD, splenectomy, liver transplant 2008, who presented to emergency room for chest pain and hypotension. Patient states that she felt sudden central chest pain and checked her BP and was hypotensive. She was diagnosed with A. fib 1 month ago, Dr. Sandy is her field advisor. Patient reports that since then, she has been on Coumadin. EKG in ED showed Afib with RVR. Patient was given a Cardizem IV bolus, patient's blood pressure dropped to systolics of 60s. Patient was given total 750ml bolus of IVF and was placed on cardizem gtt and Levophed. Right-sided internal jugular central line placed by ER physician. I requested a CT of the chest to evaluate right lower lobe infiltrate on chest x-ray. This showed a moderate-sized right lower lobe consolidation and moderate to large pericardial effusion I evaluated the patient in the emergency department. She is currently on Levothroid at 3 mcg/m and Cardizem infusion. I did a bedside ultrasound, which showed moderate to large pericardial effusion. The patient is in atrial fibrillation and rapid ventricular response, difficult to evaluate for tamponade physiology with limited bedside echo. Stat full echo pending at this time. Stat cardiology consult also placed -Dr. Melendez. Lizarraga cultures will be sent and patient will be placed on Zosyn and vancomycin to cover for healthcare associated pneumonia CBC/BMP: 11/06/16 0545 11/06/16 0545 Significant Findings Laboratory Tests Test 11/03/16 11/04/16 11/04/16 11/05/16 23:50 04:34 17:15 04:27 Carbon Dioxide Level 35.0 MEQ/L 32.5 MEQ/L (21.0-32.0) (21.0-32.0) Creatinine 4.13 MG/DL 4.42 MG/DL 5.55 MG/DL (0.50-1.00) (0.50-1.00) (0.50-1.00) Estimat Glomerular Filtration 11 ML/MIN (>89) 10 ML/MIN (>89) 8 ML/MIN (>89) Rate Red Blood Count 3.39 MIL/MM3 3.47 MIL/MM3 (4.00-5.30) (4.00-5.30) Hemoglobin 11.3 GM/DL 11.2 GM/DL (11.6-15.3) (11.6-15.3) Hematocrit 33.7 % (35.0-46.0) Chloride Level 96 MEQ/L 95 MEQ/L (98-107) (98-107) Prothrombin Time 12.7 SEC (9.8-11.6) Mean Corpuscular Volume 100.7 FL (80.0-100.0) Blood Urea Nitrogen 24 MG/DL (7-18) Calcium Level 10.2 MG/DL (8.5-10.1) Test 11/05/16 11/06/16 16:10 05:45 CA 125 Antigen 249.7 U/ML (0.0-30.2) Red Blood Count 3.02 MIL/MM3 (4.00-5.30) Hemoglobin 10.0 GM/DL (11.6-15.3) Hematocrit 29.9 % (35.0-46.0) Creatinine 4.17 MG/DL (0.50-1.00) Estimat Glomerular Filtration 11 ML/MIN (>89) Rate Albumin 2.1 GM/DL (3.4-5.0) Imaging Last Impressions Abdomen/Pelvis CT 11/04/16 0000 Signed Impressions: Service Date/Time: October 10:44 - CONCLUSION: 1. Small to moderate left pleural effusion with moderate ascites and diffuse abdominal wall anasarca consistent with at least moderate positive fluid balance. 2. Chronic atrophic appearing kidneys. 3. 2.7 x 1.1 x 1.0 cm hypodense lesion in segment 5 of the liver. This cannot be further characterized due to lack of IV contrast. Further evaluation may be performed with multiphase MRI or CT examination as indicated. 4. Minimal descending and sigmoid colon diverticulosis. 5. Postsurgical features of prior splenectomy, cholecystectomy and right sided pleural bases. Neto Solis MD Shoulder X-Ray 11/02/16 Signed Impressions: Service Date/Time: Wednesday, November 02, 2016 11:05 - CONCLUSION: No evidence of fracture or dislocation. Mynor Guallpa MD Liver Ultrasound 11/02/16 Signed Impressions: Service Date/Time: Wednesday, November 02, 2016 14:37 - CONCLUSION: 1. Very trace residual ascites likely following interval paracentesis. 2. Grossly unremarkable appearance of the liver without evidence for volume loss or significant focal mass. Small cyst in the right lobe. Patent portal vein. 3. Small chronic appearing right kidney with small 1.1 cm cyst in the superior pole. No evidence for right-sided obstructive uropathy. Neto Solis MD Chest X-Ray 11/02/16 Signed Impressions: Service Date/Time: Wednesday, November 02, 2016 11:04 - CONCLUSION: 1. There is a pericardial drain in place. 2. There is been previous stenting of the left subclavian vein. 3. Right IJ catheter in good position. 4. Cardiomegaly with continued bilateral effusions and consolidative changes in the left base. 1. Misbah Bower MD Abdomen Ultrasound 11/02/16 Signed Impressions: Service Date/Time: Wednesday, November 02, 2016 12:24 - CONCLUSION: Lower abdominal ascites. Mynor Guallpa MD Pericardiocentesis 11/01/16 Signed Impressions: Service Date/Time: Tuesday, November 01, 2016 16:36 - CONCLUSION: CT guided pericardiocentesis. Misbah Bower MD Chest CT 10/31/16 Signed Impressions: Service Date/Time: Monday, October 31, 2016 14:33 - CONCLUSION: 1. Moderate to large pericardial effusion. 2. Moderate-sized area of right lower lobe consolidation. 3. Coarse calcifications diffusely in the right pleura. Indicating prior pleurodesis. Randell Juan MD PE at Discharge GENERAL: NAD SKIN: Warm and dry. HEAD: Normocephalic. EYES: No scleral icterus. No injection or drainage. NECK: Supple, trachea midline. No JVD or lymphadenopathy. CARDIOVASCULAR: Regular rate and rhythm with II/ ELLIOTT; RESPIRATORY: Breath sounds equal bilaterally. No accessory muscle use. GASTROINTESTINAL: Abdomen soft, non-tender, nondistended. MUSCULOSKELETAL: No cyanosis, or edema. BACK: Nontender without obvious deformity. No CVA tenderness. Hospital Course Anxiety -Continue with Xanax when necessary Right lower lobe pneumonia -Continue with oxygen keep sat >92% -DuoNeb every 6 hours when necessary -Broad-spectrum antibiotics with Zosyn and vancomycin, 7 day course to be completed today 11/06/16 Hypotension-improving Atrial fibrillation with RVR Moderate to large pericardial effusion - s/p Neosyn Monitor HR and BP keep MAP>65mmHg. -s/p CT guided pericardiocentesis yesterday with removal 1.2L Monitor pericardial drainage. Plan to remove pericardial drain today 11/05/16 by interventional radiology -Echo showed EF 60-65% -Continue midodrine 10mg po q8hr. -Resume Coumadin . Coumadin 10mg x 1 now then Coumadin 10mg x 1 on 11/07/16 finally Coumadin 5mg daily started 11/08/16 with INR/PT monitoring on 11/09/16 Status post liver transplant in 2008 Status post splenectomy -Continue post transplant medications including tacrolimus, Prograf level 5.9 on 11/01 -Watch for OPSI as patient had splenectomy Hypoalbuminemia: Secondary to pericardial effusion s/p magnesium citrate 1 per GI 11/04/16 Patient will need fecal level result to determine if she has protein-losing gastroenteropathy ESRD on HD -Monitor renal function, I/O's, avoid nephrotoxins. -Hemodialysis per nephrology -Occult malignancy ? she has hypercalcemia/metabolic alkalosis. CA 19-9 normal however CA 125 elevated, PTH related peptide pending per nephrology Septic shock- resolved Right lower lobe pneumonia -IV vancomycin and Zosyn renally dosed. Monitor for signs of infections ( Fever , WBC) -Follow up on blood and fluid cultures- NGTD -Monitor CBC, CMP, coags -Beta 2microglobulin elevated 20.9, ? M. Myeloma, Onc consulted.-Dr. Schulz PROPH: -Bilateral lower extremity SCDs/Lovenox 30mg daily for DVT prophylaxis. -PO Protonix for GI prophylaxis Pt Condition on Discharge: Stable Discharge Disposition: Disch w/ Home Health Serv Discharge Time: > 30 minutes Discharge Instructions DIET: Follow Instructions for: Heart Healthy Diet, Coumadin (Warfarin) Diet Activities you can perform: Regular-No Restrictions Follow up Referrals: Cardiology Gastroenterology Nephrology PCP Follow-up - 1 Week New Orders: PT/INR (OFFICE) - 11/09/16 @ [facility] New Medications: Warfarin (Coumadin) 10 Mg Tab 10 MG PO DAILY take Coumadin 10mg x 1 on 11/07/16 Prevent Blood Clot #1 Ref 0 TAB Continued Medications: Alendronate (Fosamax) 70 Mg Tab 70 MG PO Q7D Osteoporosis Treatment #4 Ref 0 TAB B-Complex W/ C-Biotin-D & Folic Acid (Dialyvite 800 Plus D) 800 Mcg Wafr 1 WAFER PO DAILY BOX Clonazepam (Clonazepam) 1 Mg Tab 1 MG PO BID #60 Ref 0 TAB Levothyroxine (Levothyroxine) 88 Mcg Tab 88 MCG PO DAILY Thyroid #30 Ref 0 TAB Midodrine (Midodrine) 10 Mg Tab 20 MG PO DAILY Control Low Blood Pressure #90 Ref 0 TAB Pantoprazole (Pantoprazole) 40 Mg Tab 40 MG PO DAILY Reflux #30 Ref 0 TAB Pyridoxine (Vitamin B-6) Unknown Strength Tab Unknown Dose PO DAILY TAB Sevelamer Carbonate (Renvela) 800 Mg Tab 800 MG PO TID Control phosphorous levels #90 Ref 0 TAB Tacrolimus (Bulk) (Tacrolimus) 1 Pow Pow 1 MG PO DAILY@0600 Tacrolimus (Bulk) (Tacrolimus) 1 Pow Pow 0.5 MG PO HS Warfarin (Coumadin) 5 Mg Tab 5 MG PO DAILY@1600 Blood Clot Prevention #30 TAB Umer Hurst MD Nov 06, 2016 13:28
[2016-11-06] MEDS ORDERED: WARFARIN SOD 10 MG TAB PO ONE ×2 (13:30→16:00)
[2016-11-06] MEDS: ENOXAPARIN SODIUM 30 MG/0.3 ML SYRINGE SQ SCH (14:29)
[2016-11-06] MEDS: WARFARIN SOD 5 MG TAB PO SCH (14:29)
[2016-11-06 23:52] LABS: KAPPA/LAMBDA FREE 2.03 (0.26-1.65)
== END 2016-11-06 17:42 | disposition home health service (06) | DRG 314 ==
LOC: NEPC 10:46 → NEDA 14:41 → HIMW 16:35 → HCIS 11-05 17:49
PROVIDERS: ADMIT Hospitalist; ATTEND Hospitalist
PROC: 5A1D60Z (ICD-10-PCS; 2016-10-31)
PROC: 0W9D30Z Drainage of Pericardial Cavity with Drainage Device, Percutaneous Approach (ICD-10-PCS; principal; 2016-11-01)
DX: I31.3 Pericardial effusion (noninflammatory) (principal); N18.6 End stage renal disease; R65.21 Severe sepsis with septic shock; A41.9 Sepsis, unspecified organism; J18.9 Pneumonia, unspecified organism; I12.0 Hypertensive chronic kidney disease with stage 5 chronic kidney disease or end stage renal disease; E87.3 Alkalosis; R18.8 Other ascites; E11.22 Type 2 diabetes mellitus with diabetic chronic kidney disease; I48.91 Unspecified atrial fibrillation; E88.09 Other disorders of plasma-protein metabolism, not elsewhere classified; E03.9 Hypothyroidism, unspecified; E78.5 Hyperlipidemia, unspecified; G47.33 Obstructive sleep apnea (adult) (pediatric); E83.52 Hypercalcemia; F41.9 Anxiety disorder, unspecified; Z79.01 Long term (current) use of anticoagulants; Z87.828 Personal history of other (healed) physical injury and trauma; Z90.81 Acquired absence of spleen; Z94.4 Liver transplant status; Z99.2 Dependence on renal dialysis
CPT/HCPCS: 33010; 36430; 36556; 36591; 36600; 71010; 71250; 73030; 74176; 76705; 76937; 77012; 80048; 80053; 80069; 80197; 80202; 82040; 82103; 82105; 82232; 82378; 82397; 82533; 82550; 82652; 82784; 82805; 82945; 83605; 83615; 83690; 83735; 83880; 83883; 84100; 84134; 84165; 84443; 84484; 85025; 85027; 85610; 85652; 85730; 86038; 86140; 86160; 86301; 86304; 86334; 86927; 87015; 87040; 87070; 87102; 87116; 87205; 87206; 87641; 88112; 88305; 89051; 90935; 93005; 93306; 93308; 94640; 94664; 96365; 96368; 96374; 96375; C1729; C1769; C9113; J0610; J1650; J2150; J2250; J2370; J2405; J2543; J3010; J3370; J7030; J7050; J7060; J7507; P9017; P9047; Q4081